=== PATIENT | male | born 1965 | race Caucasian/White ===

== ENCOUNTER 2018-10-04 18:09 | Emergency (ER) | payer OTHER ==
[~2018-10-04] VITALS: Ht 180.3 cm; Wt 87.1 kg
--- NOTE | 2018-10-04 18:15 | NUR ---
aaox3, BIBA RA 88 From [facility] "Alcohol Abuse, nausea, back pain. Last drink 12H" +Tremors. Resp even and unlabored. Placed on the monitor. Awaiting md for eval.
--- NOTE | 2018-10-04 18:18 | NUR ---
LILIBETH MINOR AT BEDSIDE
[2018-10-04] MEDS ORDERED: IV NS 0.9% 1,000 ML BAG IV ONE ×2 (18:30→21:00)
[2018-10-04] MEDS ORDERED: ONDANSETRON HCL/PF 4 MG/2 ML VIAL IVP ONE (18:30)
[2018-10-04] MEDS ORDERED: LORAZEPAM INJ 2 MG/ML VIAL IV ONE (18:30)
[2018-10-04] MEDS ORDERED: ONDANSETRON HCL/PF 4 MG/2 ML VIAL ONE ×2 (18:43→20:05)
[2018-10-04] MEDS ORDERED: LORAZEPAM INJ 2 MG/ML VIAL ONE (18:43)
[2018-10-04 18:56] LABS: BASOPHILS # (AUTO) 0.1 /CMM (0.0-0.2); BASOPHILS % (AUTO) 1.3 % (0.0-2.0); EOSINOPHILS % (AUTO) 0.1 % (0.0-6.0); HEMATOCRIT 43 % (39-51); LYMPHOCYTES # (AUTO) 0.6 /CMM (0.8-4.8); LYMPHOCYTES % (AUTO) 15.7 % (20.0-44.0); MEAN CORPUSCULAR HGB CONC 35 g/dl (31.0-36.0); MEAN CORPUSCULAR VOLUME 98 fL (80-96); MONOCYTES # (AUTO) 0.2 /CMM (0.1-1.30); MONOCYTES % (AUTO) 4.7 % (2.0-12.0); NEUTROPHILS # (AUTO) 3.2 /CMM (1.8-8.9); NEUTROPHILS % (AUTO) 78.2 % (43.0-81.0); PLATELET COUNT (AUTO) 105 /CMM (150-450); RED BLOOD CELL COUNT(AUTO) 4.44 MIL/uL (4.5-6.0); WHITE BLOOD COUNT (AUTO) 4.1 K/uL (4.3-11.0)
[2018-10-04 19:13] LABS: ALBUMIN 4.6 g/dL (3.4-5.0); BILIRUBIN,DIRECT 0.2 mg/dL (0.0-0.2); CREATININE 0.8 mg/dL (0.6-1.3)
--- NOTE | 2018-10-04 19:22 | NUR ---
RECEIVED REPORT FROM VINCE POND FOR KIMBERLI
--- NOTE | 2018-10-04 19:22 | NUR ---
REPORT GIVEN TO TRAVIS POND FOR KIMBERLI
[2018-10-04 19:23] LABS: CALCIUM, SERUM 8.8 mg/dL (8.5-10.1); POTASSIUM 3.5 mmol/L (3.5-5.1)
[2018-10-04] MEDS ORDERED: CHLORDIAZEPOXIDE HCL 25 MG CAPSULE PO ONE (19:30)
[2018-10-04] MEDS ORDERED: CHLORDIAZEPOXIDE HCL 25 MG CAPSULE ONE (19:36)
[2018-10-04] MEDS ORDERED: ONDANSETRON HCL/PF 4 MG/2 ML VIAL IV ONE (20:00)
[2018-10-04] MEDS ORDERED: HYDROMORPHONE 1 MG/1 ML DISP.SYRIN IV ONE (20:00)
[2018-10-04] MEDS ORDERED: HYDROMORPHONE 1 MG/1 ML DISP.SYRIN ONE (20:06)
--- NOTE | 2018-10-04 20:55 | NUR ---
ATTEMPTED TO AMBULATE PT. PT BECAME DIAPHORETIC AND UNABLE TO STAND. ASSISTED PT BACK INTO BED AND BACK ON THE MONITOR. ER PA AWARE.
[2018-10-04] MEDS ORDERED: LEVETIRACETAM (500MG) 500 MG/5 ML VIAL IV ONE (21:11)
[2018-10-04] MEDS ORDERED: Magnesium 1 GM/2 ML VIAL ONE (21:11)
[2018-10-04] MEDS ORDERED: LEVETIRACETAM (500MG) 1,500 MG in IV NS 0.9% 100 ML IV SCH (21:30)
[2018-10-04] MEDS ORDERED: Magnesium 1 GM/2 ML VIAL IV ONE (21:30)
--- NOTE | 2018-10-04 21:32 | NUR ---
PT RETURNED FROM CT
--- NOTE | 2018-10-04 22:19 | NUR ---
CALLED [facility] TO FOLLOW UP AND WAS INFORMED THAT THEY ARE WAITING ON CT RESULTS. RESULTS HAVE NOT COME IN YET, BUT WILL FAX RESULTS WHEN THEY COME IN. HEAD CT AND EKG TO FAX # [phone]
--- NOTE | 2018-10-04 22:23 | NUR ---
CALLED [facility] TO READ HEAD CT
--- NOTE | 2018-10-04 23:27 | NUR ---
ACCEPTED TO [facility]. MD TATUM. RN REPORT [phone]. TRANSPORT:0100.
--- NOTE | 2018-10-04 23:31 | NUR ---
REPROT GIVEN TO LUCY POND AT [facility] ([facility]
--- NOTE | 2018-10-05 00:19 | NUR ---
PT RESTING COMFORTABLY IN BED. VITAL SIGNS STABLE. NO ACUTE DISTRESS NOTED AT THIS TIME. STILL ON MONITOR, WILL CONTINUE TO MONITOR
--- NOTE | 2018-10-05 01:06 | NUR ---
GAVE REPORT TO [facility] FOR TRANSPORTATION KIMBERLI
[2018-10-05 01:10] VITALS: BP 160/91
== END 2018-10-05 01:13 | disposition short-term general hospital (02) ==
LOC: ER 18:12
DX: F10.239 Alcohol dependence with withdrawal, unspecified (principal); R53.1 Weakness; R11.2 Nausea with vomiting, unspecified; G89.29 Other chronic pain; M54.9 Dorsalgia, unspecified; R74.0 Nonspecific elevation of levels of transaminase and lactic acid dehydrogenase [LDH]; R40.4 Transient alteration of awareness; Y90.9 Presence of alcohol in blood, level not specified; Z60.2 Problems related to living alone
CPT/HCPCS: 36415; 70450; 80048; 80076; 83690; 85025; 93005; 96361; 96365; 96367; 96375; 96376; 99285; J1170; J1953; J2060; J2405 ×2; J3475; J7030 ×3; J7060

== ENCOUNTER 2020-09-04 17:29 | Inpatient (IN) | payer MEDICAID, OTHER ==
[~2020-09-04] VITALS: Ht 180.3 cm; Wt 93.4 kg
[2020-09-04] MEDS ORDERED: LORAZEPAM INJ 2 MG/ML VIAL IVP ONE (18:00)
[2020-09-04] MEDS ORDERED: IV NS 0.9% 1,000 ML BAG IV ONE (18:00)
[2020-09-04 18:17] LABS: BASOPHILS # (AUTO) 0.1 /CMM (0.0-0.2); BASOPHILS % (AUTO) 1.8 % (0.0-2.0); EOSINOPHILS % (AUTO) 0.1 % (0.0-6.0); HEMATOCRIT 41 % (39-51); HEMOGLOBIN 14.1 g/dL (13.5-17.5); LYMPHOCYTES # (AUTO) 0.7 /CMM (0.8-4.8); LYMPHOCYTES % (AUTO) 9.3 % (20.0-44.0); MEAN CORPUSCULAR HGB CONC 35 g/dl (31.0-36.0); MEAN CORPUSCULAR VOLUME 96 fL (80-96); MONOCYTES # (AUTO) 0.7 /CMM (0.1-1.30); MONOCYTES % (AUTO) 8.8 % (2.0-12.0); NEUTROPHILS # (AUTO) 6.2 /CMM (1.8-8.9); PLATELET COUNT (AUTO) 271 /CMM (150-450); RED BLOOD CELL COUNT(AUTO) 4.25 MIL/uL (4.5-6.0); WHITE BLOOD COUNT (AUTO) 7.8 K/uL (4.3-11.0)
[2020-09-04] MEDS ORDERED: LORAZEPAM INJ 2 MG/ML VIAL ONE (18:29)
[2020-09-04] MEDS ORDERED: ONDANSETRON HCL/PF 4 MG/2 ML VIAL ONE (18:37)
[2020-09-04 18:38] LABS: CARBON DIOXIDE 25 mmol/L (21-32); CHLORIDE 100 mmol/L (98-107); CREATININE 0.8 mg/dL (0.6-1.3); GLUCOSE 135 mg/dL (74-106); POTASSIUM 3.8 mmol/L (3.5-5.1); SODIUM SERUM 138 mmol/L (136-145); UREA NITROGEN, BLOOD 8 mg/dL (7-18)
[2020-09-04] MEDS ORDERED: MORPHINE SULFATE INJ 4 MG/ML DISP.SYRIN ONE (18:38)
[2020-09-04 18:44] LABS: ACETAMINOPHEN 0 ug/ml (10-30); ALANINE AMINOTRANSFERASE 45 U/L (12-78); ALBUMIN 4.3 g/dL (3.4-5.0); ALCOHOL, BLOOD 4 mg/dL (0-0); ALKALINE PHOSPHATASE 89 U/L (46-116); ASPARTATE AMINOTRANSFERASE 35 U/L (15-37); BILIRUBIN,DIRECT 0.2 mg/dL (0.0-0.2); TOTAL PROTEIN, SERUM 8.2 g/dL (6.4-8.2)
--- NOTE | 2020-09-04 18:53 | NUR ---
bibra, c/o left thigh pain s/p slipped and fall last night, etoh, 8/10 pain scale. On room air, breathing evenly and unlabored. Connected to the monitor and pulse ox. kept comfortable, will continue to monitor accordingly.
[2020-09-04] MEDS ORDERED: ONDANSETRON HCL/PF - ER 4 MG/2 ML VIAL IV ONE (19:00)
[2020-09-04] MEDS ORDERED: MORPHINE SULFATE INJ 2 MG/ML DISP.SYRIN IV ONE (19:00)
[2020-09-04] MEDS ORDERED: HYDROMORPHONE 1 MG/1 ML DISP.SYRIN ONE ×3 (19:16→23:46)
[2020-09-04] MEDS ORDERED: HYDROMORPHONE 1 MG/1 ML DISP.SYRIN IV ONE ×2 (19:30→21:30)
--- NOTE | 2020-09-04 20:00 | NUR ---
URINE COLLECTED, CALLED LAB FOR CONFERENCE SERVICES MANAGER
--- NOTE | 2020-09-04 20:06 | NUR ---
COVID SWAB COLLECTED, CALLED LAB FOR TERMINAL PRESS OPERATOR
[2020-09-04 20:30] LABS: BILIRUBIN,URINE Negative (NEGATIVE); COLOR,URINE YELLOW (YELLOW); LEUKOCYTE ESTERASE ,URINE Negative (NEGATIVE); NITRITE, URINE Negative (NEGATIVE); PROTEIN,URINE 30 mg/dl (NEGATIVE); UGLUCOSE Negative (NEGATIVE); UROBILINOGEN,URINE 0.2 EU/dL (0.2)
[2020-09-04 20:33] LABS: BACTERIA,URINE Rare /HPF (None Seen); RBC,URINE NONE SEEN /HPF (0-2); SQUAMOUS EPITHELIAL CELL,UR Few /HPF (None Seen); WBC,URINE NONE SEEN /HPF (0-3)
[2020-09-04] MEDS ORDERED: THIAMINE HCL 100 MG TABLET PO STA (21:01)
--- NOTE | 2020-09-04 21:10 | NUR ---
COVID NEGATIVE PER LAB
[2020-09-04] MEDS ORDERED: IV NS 0.9% 1,000 ML IV PRN (21:30)
[2020-09-04] MEDS ORDERED: HYDROCODONE/APAP 5/325MG TABLET PO PRN (21:30)
[2020-09-04] MEDS ORDERED: ZOLPIDEM TARTRATE 5 MG TABLET PO PRN (21:30)
[2020-09-04] MEDS ORDERED: Z GUARD REMEDY 2 OZ OINT TP PRN (21:30)
[2020-09-04] MEDS ORDERED: ACETAMINOPHEN 325 MG TABLET PO PRN (21:30)
[2020-09-04] MEDS ORDERED: ENOXAPARIN SODIUM 40 MG/0.4 ML DISP.SYRIN SQ ONE (21:30)
[2020-09-04] MEDS ORDERED: MAGNESIUM HYDROXIDE 30 ML UDC PO PRN (21:30)
[2020-09-04] MEDS ORDERED: LORAZEPAM INJ 2 MG/ML VIAL IV PRN (21:30)
[2020-09-04] MEDS ORDERED: ONDANSETRON HCL/PF 4 MG/2 ML VIAL IVP PRN (21:30)
--- NOTE | 2020-09-04 23:15 | NUR ---
REPORT GIVEN TO CUSTOMER TECHNICAL SERVICES MANAGER WILFREDO WILL TRANSPORT PT VIA ACLS PROTOCOL.
[2020-09-05] VITALS: BP 148/111
[2020-09-05] MEDS ORDERED: HYDROMORPHONE INJ 2 MG/ML DISP.SYRIN IV ONE
--- NOTE | 2020-09-05 | NUR ---
shellfish sorterpassport application examiner notes Received Pt from ER nurse SALTY Parra. Pt arrived at the unit with a gurney and ACLS protocol. Pt is alert and orientedX4. Respiration is normal in room air with O2 sat is 97%. IV site at L wrist # 18 is clean, intact and flushes well. Tele monitor showed SR hr at 80. Received admission orders from LILIBETH Jackson. Skin assessment is done and performed. Picture is taken and placed at Pt's chart. Pt has scab on R arm. Pt refused skin assessment on his back to due fracture pain. Pt stated "My back is fine and no wounds." Reorient Pt to the room and the use of call light. Pt verbalized understanding. Safety precautions is maintained. Bed at low position, brakes locked, side rails upX2, urinal at the bedside and call light is within reach. Will continue to monitor.
[2020-09-05] MEDS: FOLIC ACID 1 MG TABLET PO SCH ×2 (00:13→08:56)
--- NOTE | 2020-09-05 00:15 | NUR ---
RN notes Administered lovenox 40 mg/once as ordered. COURT SPECIALIST is aware and informed. Will continue to monitor.
[2020-09-05] MEDS ORDERED: THIAMINE HCL 100 MG TABLET ONE (00:21)
--- NOTE | 2020-09-05 00:29 | NUR ---
RN notes Pt is feeling anxious and requesting meds. Administered ativan 2 mg/1 ml/iv push/prn as ordered. INCLUSION MANAGER is aware and informed. Will continue to monitor.
[2020-09-05 00:30] VITALS: BP 148/111
[2020-09-05] MEDS ORDERED: LORAZEPAM INJ 2 MG/ML VIAL IV PRN (00:30)
[2020-09-05] MEDS ORDERED: ENOXAPARIN SODIUM 40 MG/0.4 ML DISP.SYRIN SQ ONE (00:30)
--- NOTE | 2020-09-05 03:46 | NUR ---
criminal intelligence specialist notes Pt is complaining of pain on L hip 04/01 and requesting meds. Informed and notified GRADUATE RECRUITER. GRADUATE RECRUITER ordered morphine 2 mg/iv push/q 4hr/prn. order carried out. Will continue to monitor.
[2020-09-05] MEDS: MORPHINE SULFATE INJ 2 MG/ML DISP.SYRIN IVP PRN ×2 (03:58→08:26)
[2020-09-05 04:00] VITALS: BP_SYST 148; BP_SYST 149; BP_DIAS 111; BP_DIAS 99
--- NOTE | 2020-09-05 04:07 | NUR ---
apiarist notes Pt is complaining of pain on L hip 04/01 and requesting pain. Administered morphine 2 mg/ivp/prn as ordered. VS is stable. Safety precautions is maintained. Will continue to monitor.
--- NOTE | 2020-09-05 06:41 | NUR ---
livestock judging coach closing notes Pt is resting in bed comfortably. Pt is alert and orientedX4. Respiration is normal in room air with O2 sat is 96 %. NO SOB. No S/S of distress noted. IV site at L wrist # 18 is clean, intact and infusing well NS @ 70 ml/hr. VS is stable. Afebrile. Tele monitor showed SR Hr at 75. Routine meds were given as ordered. Pt status is NPO. Safety precautions is maintained. Bed at low position, brakes locked, side rails upX2, urinal at the bedside and call light is within reach. Will endorse to morning nurse for KIMBERLI.
[2020-09-05 07:07] LABS: EOSINOPHILS % (AUTO) 1.5 % (0.0-6.0); HEMATOCRIT 37 % (39-51); HEMOGLOBIN 12.6 g/dL (13.5-17.5); LYMPHOCYTES # (AUTO) 0.7 /CMM (0.8-4.8); MEAN CORPUSCULAR HGB CONC 34 g/dl (31.0-36.0); MEAN CORPUSCULAR VOLUME 97 fL (80-96); MONOCYTES # (AUTO) 0.5 /CMM (0.1-1.30); MONOCYTES % (AUTO) 10.7 % (2.0-12.0); NEUTROPHILS # (AUTO) 3.2 /CMM (1.8-8.9); NEUTROPHILS % (AUTO) 70.8 % (43.0-81.0); PLATELET COUNT (AUTO) 222 /CMM (150-450); RED BLOOD CELL COUNT(AUTO) 3.79 MIL/uL (4.5-6.0); WHITE BLOOD COUNT (AUTO) 4.5 K/uL (4.3-11.0)
[2020-09-05 07:32] LABS: CALCIUM, SERUM 7.7 mg/dL (8.5-10.1); CREATININE 0.6 mg/dL (0.6-1.3); MAGNESIUM 1.7 mg/dL (1.8-2.4); PHOSPHORUS 2.8 mg/dL (2.5-4.9); POTASSIUM 3.4 mmol/L (3.5-5.1)
--- NOTE | 2020-09-05 08:27 | NUR ---
RN NOTES PATIENT REQUESTED FOR PAIN MEDICATION MORPHINE IV FOR PAIN RATED 9/10.
--- NOTE | 2020-09-05 08:31 | NUR ---
WOUND CARE CONSULT: PT REFUSED SKIN ASSESSMENT. PT NOTED TO HAVE DRY ABRASION TO RT ARM, PRESENT ON ADMISSION. RECOMMENDATIONS MADE FOR SKIN PROTECTION. DISCUSSED WITH NURSING STAFF. WILL SEE PRN. IN AGREEMENT WITH PLAN OF CARE. CURRENT DEXTER SCORE IS 16.
--- NOTE | 2020-09-05 09:00 | NUR ---
RN NOTES RECEIVED CALL FROM DR. DAUGHERTY; PER , WILL DO RESURFACING OF HIP PROSTHESIS LATER IN THE DAY. CHARGE NURSE MADE AWARE. Addendum: 09/05/20 at 9196 by ZAIRA POSEY RN PATIENT VERBALIZED THAT HE HAS NOT EATEN ANYTHING SINCE YESTERDAY IN THE AFTERNOON; REMINDED OF BEING NPO AT THIS TIME FOR POSSIBLE SURGERY TODAY.
[2020-09-05] MEDS: POTASSIUM CL. PREMIX PERIPHER. 50 ML IV SCH ×4 (09:13→19:17)
--- NOTE | 2020-09-05 10:11 | NUR ---
RN NOTES BEDSIDE ENDORSEMENT AND PATIENT REPORT GIVEN TO SALTY ANDREWS, FOR KIMBERLI.
[2020-09-05] MEDS: Magnesium 1GM/D5W 100ML PREMIX 100 ML IV SCH ×2 (10:32→16:55)
[2020-09-05] MEDS ORDERED: FENTANYL PF 250MCG/5ML AMPUL ONE (12:54)
[2020-09-05] MEDS ORDERED: SEVOFLURANE 250 ML BOTTLE IH ONE (12:54)
[2020-09-05] MEDS ORDERED: BUPIVACAINE 0.5 % PF 150 MG/30 ML VIAL ONE (12:57)
[2020-09-05] MEDS ORDERED: BACITRACIN 50000 UNITS/VIAL ONE (12:57)
--- NOTE | 2020-09-05 13:00 | NUR ---
COST ESTIMATING CLERK NOTES PATIENT TAKEN FOR SURGERY VIA BED
[2020-09-05] MEDS ORDERED: VANCOMYCIN 1 GM VIAL ONE (13:01)
[2020-09-05] MEDS ORDERED: LABETALOL HCL IV 100MG VIAL ONE (15:44)
[2020-09-05] MEDS ORDERED: HYDROCODONE/APAP 10/325MG TABLET PO PRN (16:30)
[2020-09-05] MEDS ORDERED: IV D5/0.45 NACL W/20 MEQ KCL 1L IV PRN (16:30)
[2020-09-05] MEDS ORDERED: Magnesium 1GM/D5W 100ML PREMIX 100 ML IV SCH (17:00)
[2020-09-05] MEDS ORDERED: POTASSIUM CL. PREMIX PERIPHER. 50 ML IV SCH ×2 (17:00→18:00)
[2020-09-05] MEDS: MORPHINE SULFATE INJ 4 MG/ML DISP.SYRIN IV PRN ×3 (17:49→22:24)
--- NOTE | 2020-09-05 17:58 | NUR ---
MS RN NOTES PATIENT BACK FROM PROCEDURE; MEDICALLY STABLE, VITAL SIGNS WITHIN NORMAL LIMITS.
--- NOTE | 2020-09-05 17:59 | NUR ---
MS RN NOTES PATIENT WITH L HIP PAIN 9 OUT OF 10. REQUESTING PAIN MEDICATION. PRN MORPHINE GIVEN PER MD ORDER.
--- NOTE | 2020-09-05 18:51 | NUR ---
CHIEF CRUISER CLOSING NOTES PATIENT REMAINS IN BED, AWAKE, A/O X4. PATIENT ON O2 AT THIS TIME POST-OP. PAIN TREATED WITH PRN PAIN MEDICATIONS. TELE MONITOR WITH A CURRENT READING OF SR 77. IV ACCESS ON L WRIST G # 18; PRESENT AND INTACT. DUNN CATH PRESENT AND IN PLACE. ABDUCTOR PILLOW FOR POSITIONING. SAFETY PRECAUTIONS IN PLACE; BED IN LOW POSITION AND LOCKED, RAILS UP X2, CALL LIGHT WITHIN REACH. WILL ENDORSE TO NIGHTSHIFT NURSE.
[2020-09-05 21:43] VITALS: BP 136/98
[2020-09-05] MEDS: ANCEF 1 GM/50 ML D5W IV SCH (21:47)
[2020-09-06] VITALS: BP 103/65
[2020-09-06] MEDS: MORPHINE SULFATE INJ 4 MG/ML DISP.SYRIN IV PRN ×10 (00:31→23:59)
--- NOTE | 2020-09-06 01:22 | NUR ---
MS/TELE/RN PATIENT IS SLEEPING AT THIS TIME, APPEAR COMFORTABLE, NO SIGNS OF DISTRESS NOTED, CALL LIGHT IN REACH, WILL CONTINUE TO MONITOR.
[2020-09-06 04:00] VITALS: BP 120/78
[2020-09-06] MEDS: ANCEF 1 GM/50 ML D5W IV SCH (05:05)
--- NOTE | 2020-09-06 06:14 | NUR ---
MS/TELE/RN PATIENT IS STILL SLEEPING AT THIS TIME, APPEAR COMFORTABLE, NO SIGNS OF DISTRESS NOTED, CALL LIGHT IN REACH, ALL NEEDS ATTENDED AT THIS TIME, WILL CONTINUE TO MONITOR.
[2020-09-06 07:19] LABS: BASOPHILS % (AUTO) 0.4 % (0.0-2.0); HEMATOCRIT 29 % (39-51); HEMOGLOBIN 9.8 g/dL (13.5-17.5); LYMPHOCYTES # (AUTO) 0.9 /CMM (0.8-4.8); LYMPHOCYTES % (AUTO) 18.4 % (20.0-44.0); MEAN CORPUSCULAR HGB CONC 34 g/dl (31.0-36.0); MEAN CORPUSCULAR VOLUME 99 fL (80-96); MONOCYTES # (AUTO) 0.5 /CMM (0.1-1.30); NEUTROPHILS # (AUTO) 3.4 /CMM (1.8-8.9); NEUTROPHILS % (AUTO) 69.2 % (43.0-81.0); PLATELET COUNT (AUTO) 183 /CMM (150-450); RED BLOOD CELL COUNT(AUTO) 2.93 MIL/uL (4.5-6.0); WHITE BLOOD COUNT (AUTO) 4.9 K/uL (4.3-11.0)
[2020-09-06 07:36] LABS: BILIRUBIN,TOTAL 0.9 mg/dL (0.2-1.0); CALCIUM, SERUM 7.7 mg/dL (8.5-10.1); CREATININE 0.6 mg/dL (0.6-1.3); PHOSPHORUS 2.5 mg/dL (2.5-4.9); POTASSIUM 3.4 mmol/L (3.5-5.1); TOTAL PROTEIN, SERUM 6.1 g/dL (6.4-8.2)
--- NOTE | 2020-09-06 07:57 | NUR ---
PRESS AND BLOW MACHINE TENDER OPENING NOTES RECEIVED PATIENT LYING IN BED, AWAKE, A/O X4. DAY 2 POST-OP. TELE MONITOR WITH A CURRENT READING OF SR 76. IV ACCESS ON L WRIST G # 18; PRESENT AND INTACT - RUNNING NS +20KCL @ 75ML/HR. DUNN CATH PRESENT AND IN PLACE. ABDUCTOR PILLOW FOR POSITIONING. SAFETY PRECAUTIONS IN PLACE; BED IN LOW POSITION AND LOCKED, RAILS UP X2, CALL LIGHT WITHIN REACH. WILL CONTINUE TO MONITOR.
[2020-09-06] MEDS: FOLIC ACID 1 MG TABLET PO SCH (08:08)
[2020-09-06] MEDS: POTASSIUM CHLORIDE 20 MEQ TAB.PRT.SR PO SCH ×2 (09:01→09:02)
--- NOTE | 2020-09-06 09:30 | NUR ---
MS/RN S/B Dr Lucero Seen by Dr Lucero - tele discontinued, electrolytes to be replaced as required.
[2020-09-06] MEDS ORDERED: POTASSIUM CHLORIDE 20 MEQ TAB.PRT.SR PO SCH (10:30)
--- NOTE | 2020-09-06 13:30 | NUR ---
MS/RN Physical therapy Seen by PT - able to get out of bed and take three steps forward and three steps back using walker. Recommendation of discharging to acute rehab unit upon discharge.
[2020-09-06] MEDS: SOD FERRIC GLUC 125 MG in IV NS 0.9% 100 ML IV SCH (16:07)
--- NOTE | 2020-09-06 17:36 | NUR ---
MS RN NOTE: PATIENT'S IV SITE IS RED AND A LITTLE SWOLLEN. PATIENT IS REFUSING A NEW LINE TO BE PUT IN AT THIS TIME. WILL CONTINUE TO MONITOR.
--- NOTE | 2020-09-06 18:38 | NUR ---
MS RN CLOSING NOTES PATIENT CURRENTLY RESTING IN BED, AWAKE, A/O X4. NO SIGNS OF DISTRESS. PAIN NOTED 01/30 - TREATED WITH PRN MORPHINE. LAST DOSE GIVEN @ 171 - MORPHINE 4MG IV. IV ACCESS ON L WRIST G # 18; SITE IS RED AND SWOLLEN. PATIENT REFUSED TO HAVE ANOTHER LINE PUT IN. DUNN CATH PRESENT AND IN PLACE - TO BE REMOVED 09/07 @ 0600. ABDUCTOR PILLOW FOR POSITIONING. SAFETY PRECAUTIONS IN PLACE; BED IN LOW POSITION AND LOCKED, RAILS UP X2, CALL LIGHT WITHIN REACH. WILL ENDORSE TO RETURNING OFFICER NURSE.
--- NOTE | 2020-09-06 19:50 | NUR ---
MS/RN OPENING NOTE RECEIVED PATIENT RESTING IN BED. AWAKE, ALERT AND ORIENTED X 4. ABLE TO MAKE NEEDS KNOWN. NO COMPLAINTS OF PAIN AT THIS TIME. IV ACCESS TO LEFT WRIST INTACT AND PATENT. IV SITE WITH SLIGHT REDNESS AND EDEMA. PATIENT REFUSING TO HAVE IV SITE CHANGED. DUNN CATHETER INTACT - TO BE REMOVED @ 0600 09/07. CONTINUES ON REGULAR DIET. CALL LIGHT WITHIN REACH. ASPIRATION, FALL AND SAFETY PRECAUTIONS MAINTAINED. WILL CONTINUE TO MONITOR.
[2020-09-06 20:00] VITALS: BP 113/83
--- NOTE | 2020-09-06 20:00 | NUR ---
MS/RN NOTES PATIENT WITH COMPLAINTS OF PAIN TO LEFT HIP. GIVEN PRN MORPHINE WITH PENDING EFFECT.
[2020-09-07] MEDS: MORPHINE SULFATE INJ 4 MG/ML DISP.SYRIN IV PRN ×5 (03:26→20:10)
[2020-09-07 07:01] LABS: BASOPHILS # (AUTO) 0.1 /CMM (0.0-0.2); BASOPHILS % (AUTO) 1.4 % (0.0-2.0); EOSINOPHILS % (AUTO) 5.3 % (0.0-6.0); HEMATOCRIT 26 % (39-51); LYMPHOCYTES # (AUTO) 1.2 /CMM (0.8-4.8); LYMPHOCYTES % (AUTO) 22.4 % (20.0-44.0); MEAN CORPUSCULAR HGB CONC 35 g/dl (31.0-36.0); MEAN CORPUSCULAR VOLUME 99 fL (80-96); MONOCYTES # (AUTO) 0.7 /CMM (0.1-1.30); NEUTROPHILS % (AUTO) 57.9 % (43.0-81.0); PLATELET COUNT (AUTO) 207 /CMM (150-450); RED BLOOD CELL COUNT(AUTO) 2.63 MIL/uL (4.5-6.0); WHITE BLOOD COUNT (AUTO) 5.2 K/uL (4.3-11.0)
--- NOTE | 2020-09-07 07:15 | NUR ---
MS/RN CLOSING NOTE PATIENT CURRENTLY RESTING IN BED. AWAKE, ALERT AND ORIENTED X 4. ABLE TO MAKE NEEDS KNOWN. NO COMPLAINTS OF PAIN AT THIS TIME. DUNN CATHETER REMOVED AT 0600. PATIENT HAS NOT VOIDED YET. IV ACCESS TO LEFT WRIST INTACT AND PATENT. CONTINUES WITH SLIGHT REDNESS AND EDEMA TO IV SITE. LEFT HIP DRESSING CLEAN, DRY AND INTACT. CALL LIGHT WITHIN REACH. ASPIRATION, FALL AND SAFETY PRECAUTIONS MAINTAINED. WILL ENDORSE PLAN OF CARE TO ONCOMING SHIFT.
[2020-09-07 08:00] VITALS: BP 119/70
--- NOTE | 2020-09-07 08:14 | NUR ---
MS RN OPENING NOTE RECEIVED PATIENT RESTING IN BED. AWAKE, A/O X 4. ABLE TO MAKE NEEDS KNOWN. NO COMPLAINTS OF PAIN AT THIS TIME. IV ACCESS TO LEFT WRIST INTACT AND PATENT. IV SITE WITH SLIGHT REDNESS AND EDEMA. PATIENT REFUSING TO HAVE IV SITE CHANGED. CONTINUES ON REGULAR DIET. CALL LIGHT WITHIN REACH. ASPIRATION, FALL AND SAFETY PRECAUTIONS MAINTAINED. WILL CONTINUE TO MONITOR.
[2020-09-07] MEDS: CALCIUM CARB 600MG /VIT D 1 EACH TABLET PO SCH (08:57)
[2020-09-07] MEDS: FOLIC ACID 1 MG TABLET PO SCH (08:57)
[2020-09-07 09:16] LABS: CALCIUM, SERUM 8.3 mg/dL (8.5-10.1); CREATININE 0.7 mg/dL (0.6-1.3)
--- NOTE | 2020-09-07 09:29 | NUR ---
MS RN NOTE PATIENT COMPLAINING OF PAIN 01/30. PRN MORPHINE 4MG IV GIVEN. WILL CONTINUE TO MONITOR.
--- NOTE | 2020-09-07 12:50 | NUR ---
MS RN NOTE PATIENT COMPLAINING OF PAIN 01/30. PRN MORPHINE 4MG IV GIVEN. WILL CONTINUE TO MONITOR.
[2020-09-07] MEDS: SOD FERRIC GLUC 125 MG in IV NS 0.9% 100 ML IV SCH (14:29)
[2020-09-07] MEDS ORDERED: oxyCODONE/APAP (5/325 MG) 1 UDTAB TABLET PO PRN (14:30)
[2020-09-07 16:00] VITALS: BP 128/68
[2020-09-07] MEDS: DOCUSATE SODIUM 100 MG CAPSULE PO SCH (16:11)
--- NOTE | 2020-09-07 18:51 | NUR ---
MS RN CLOSING NOTES PATIENT CURRENTLY RESTING IN BED. AWAKE, A/O X 4. NO COMPLAINTS OF PAIN AT THIS TIME. LAST PAIN MED GIVEN @ 1618 - PRN PERCOCET 5/325MG TABLET. PATIENT HAS NOT VOIDED YET. NEW IV PLACED - LEFT HAND #22, INTACT AND PATENT. LEFT HIP DRESSING CLEAN, DRY AND INTACT. CALL LIGHT WITHIN REACH. ASPIRATION, FALL AND SAFETY PRECAUTIONS MAINTAINED. WILL ENDORSE TO SEED CLEANER OPERATOR NURSE.
[2020-09-07 20:00] VITALS: BP 109/68
--- NOTE | 2020-09-07 20:10 | NUR ---
MS RN NOTES - PAIN PATIENT C/O 03/02 LEFT HIP PAIN. ADMINISTERED MORPHINE ORDERED. WILL CONTINUE TO ASSESS FOR PAIN.
--- NOTE | 2020-09-07 20:10 | NUR ---
MS RN OPENING NOTES PATIENT A/OX4 ABLE TO MAKE NEEDS KNOWN. ON ROOM AIR TOLERATING WELL WITH NO SOB. IV ON L HAND #22G PATENT AND INTACT. COMPLAINS OF 9/10 LEFT HIP PAIN; ADMINISTERED MORPHINE ORDERED. DRESSING ON LEFT HIP C/D/I. ALL SAFETY MEASURES IN PLACE: BED IN LOWEST LOCKED POSITION, SIDE RAILS UPX2, CALL LIGHT WITHIN EASY REACH, BED ALARMS ON. PATIENT MEDICALLY STABLE AT THIS TIME.
[2020-09-07] MEDS: POLYETHYLENE GLYCOL 3350 17 GM POWD.PACK PO SCH (22:02)
--- NOTE | 2020-09-08 06:32 | NUR ---
MS RN CLOSING NOTES PATIENT A/OX4 ABLE TO MAKE NEEDS KNOWN. ON ROOM AIR TOLERATING WELL WITH NO SOB. IV ON L HAND #22G S/L PATENT AND INTACT. DRESSING ON LEFT HIP C/D/I. ALL SAFETY MEASURES IN PLACE: BED IN LOWEST LOCKED POSITION, SIDE RAILS UPX2, CALL LIGHT WITHIN EASY REACH, BED ALARMS ON. PATIENT MEDICALLY STABLE AT THIS TIME. WILL ENDORSE KIMBERLI TO ONCOMING MORNING RN.
[2020-09-08] MEDS: MORPHINE SULFATE INJ 4 MG/ML DISP.SYRIN IV PRN ×2 (07:18→12:38)
--- NOTE | 2020-09-08 07:30 | NUR ---
MS RN NOTES PATIENT IN BED ALERT ORIENTED X 4. NO ACUTE DISTRESS NOTED. BREATHING UNLABORED. IV ACCESS PATENT AND INTACT, NO REDNESS, NO SWELLING NOTED. LEFT HIP SURGICAL DRESSING CLEAN DRY AND INTACT. SAFETY MEASURES IN PLACE. CALL LIGHT WITHIN REACH. WILL CONTINUE TO MONITOR ACCORDINGLY
[2020-09-08 08:00] VITALS: BP 121/65
[2020-09-08] MEDS: CALCIUM CARB 600MG /VIT D 1 EACH TABLET PO SCH (08:19)
[2020-09-08] MEDS: DOCUSATE SODIUM 100 MG CAPSULE PO SCH ×2 (08:19→16:48)
[2020-09-08] MEDS: FOLIC ACID 1 MG TABLET PO SCH (08:19)
[2020-09-08] MEDS ORDERED: NALOXONE HCL 0.4 MG/ML AMPUL IV PRN (14:00)
[2020-09-08] MEDS ORDERED: MORPHINE SULFATE INJ 4 MG/ML DISP.SYRIN IV PRN (14:00)
[2020-09-08] MEDS: SOD FERRIC GLUC 125 MG in IV NS 0.9% 100 ML IV SCH (14:54)
[2020-09-08] MEDS ORDERED: SENNOSIDES 8.6 MG TABLET PO PRN (16:30)
--- NOTE | 2020-09-08 19:00 | NUR ---
MS RN CLOSING NOTES PATIENT IN BED ALERT ORIENTED X 4. NO ACUTE DISTRESS NOTED. BREATHING UNLABORED. IV ACCESS PATENT AND INTACT, NO REDNESS, NO SWELLING NOTED. LEFT HIP SURGICAL DRESSING CLEAN DRY AND INTACT. SAFETY MEASURES IN PLACE. CALL LIGHT WITHIN REACH. WILL ENDORSE TO NIGHT NURSE FOR CONTINUITY OF CARE.
--- NOTE | 2020-09-08 19:20 | NUR ---
RN opening notes Received Pt from morning nurse. Pt is laying in bed comfortably watching TV. Pt is alert and orientedX4. Respiration is normal in room air. No SOB. No S/S of distress noted. IV site at L hand# 22 is clean, intact, flushes well and SL. L hip surgical dressing is clean, intact and dry. Safety precautions is maintained. Bed at low position, brakes locked, side rails upX2, urinal at the bed side, walker at the bedside and call light is within reach. Will continue to monitor.
[2020-09-08 20:00] VITALS: BP 123/54
[2020-09-08] MEDS: oxyCODONE HCL SR 10MG TAB.SR.12H PO SCH (21:15)
[2020-09-08] MEDS: POLYETHYLENE GLYCOL 3350 17 GM POWD.PACK PO SCH (21:15)
--- NOTE | 2020-09-09 06:40 | NUR ---
RN closing notes Pt is resting in bed comfortably. Pt is alert and orientedX4. Respiration is normal in room air with O2 sat is 97 %. NO SOB. No S/S of distress noted. VS is stable. Afebrile. Routine meds were given as ordered. IV site at L hand # 22 is clean, intact and SL. L hip dressing is intact, clean and dry. Kept Pt clean, dry and comfortable. Safety precautions is maintained. Bed at low position, brakes locked, side rails upX2, urinal at the bedside and call light is within reach. Will endorse to morning nurse for KIMBERLI.
[2020-09-09 08:00] VITALS: BP 134/84
[2020-09-09] MEDS: CALCIUM CARB 600MG /VIT D 1 EACH TABLET PO SCH (09:29)
[2020-09-09] MEDS: DOCUSATE SODIUM 100 MG CAPSULE PO SCH ×2 (09:29→17:00)
[2020-09-09] MEDS: FOLIC ACID 1 MG TABLET PO SCH (09:29)
[2020-09-09] MEDS: oxyCODONE HCL SR 10MG TAB.SR.12H PO SCH (09:30)
[2020-09-09] MEDS: SOD FERRIC GLUC 125 MG in IV NS 0.9% 100 ML IV SCH (14:05)
[2020-09-09] MEDS ORDERED: OXYC1TAB8 PO (14:27)
[2020-09-09] MEDS ORDERED: Calcium Carb 600MG /Vit D PO (14:27)
[2020-09-09] MEDS ORDERED: SENN-261 PO (14:27)
[2020-09-09] MEDS ORDERED: Folic Acid PO (14:27)
[2020-09-09] MEDS ORDERED: DOCU-270 PO (14:27)
[2020-09-09] MEDS ORDERED: oxyCODONE HCL SR 10MG PO (14:27)
--- NOTE | 2020-09-09 15:24 | NUR ---
Pt refused to have a new IV inserted, IV on the left hand #22g found leaking and discontinued. Will inform .
[2020-09-09 16:00] VITALS: BP 117/88
[2020-09-09] MEDS ORDERED: INFLUENZA VACCINE 2020-21 0.5 ML DISP.SYRIN IM ONE (17:00)
--- NOTE | 2020-09-09 18:10 | NUR ---
Pt left in stable condition, VSS, no IV to remove. Pt given discharge instructions, verbalized understanding Pt's dressings changed with new abdominal pads and applied tape and reinforced. Pt's skin assessed, no skin breakdown, right arm picture taken and put in chart. Pt given flu vaccine on right arm prior to discharge. Pt escorted to main lobby via wheelchair and picked up by friend in private car.
== END 2020-09-09 18:00 | disposition home health service (06) | DRG 301 ==
LOC: ER 17:35 → MED 22:15 → TELE 09-05 00:22 → MED 09-06 12:07
PROVIDERS: ADMIT Nurse Practitioner Acute Care; ATTEND Nurse Practitioner Acute Care
PROC: 0SRB0JA Replacement of Left Hip Joint with Synthetic Substitute, Uncemented, Open Approach (ICD-10-PCS; principal; 2020-09-05)
PROC: 0SPB0JZ Removal of Synthetic Substitute from Left Hip Joint, Open Approach (ICD-10-PCS; 2020-09-05)
PROC: 0QS704Z Reposition Left Upper Femur with Internal Fixation Device, Open Approach (ICD-10-PCS; 2020-09-05)
DX: M97.02XA Periprosthetic fracture around internal prosthetic left hip joint, initial encounter (principal); S72.142A Displaced intertrochanteric fracture of left femur, initial encounter for closed fracture; W01.0XXA Fall on same level from slipping, tripping and stumbling without subsequent striking against object, initial encounter; Y92.009 Unspecified place in unspecified non-institutional (private) residence as the place of occurrence of the external cause; M16.11 Unilateral primary osteoarthritis, right hip; I48.92 Unspecified atrial flutter; G92 Toxic encephalopathy; F10.239 Alcohol dependence with withdrawal, unspecified; I48.91 Unspecified atrial fibrillation; Y90.0 Blood alcohol level of less than 20 mg/100 ml; E83.42 Hypomagnesemia; E87.6 Hypokalemia; D68.69 Other thrombophilia; Z20.822 Contact with and (suspected) exposure to COVID-19
CPT/HCPCS: 36415; 71045-TC; 72170-TC; 72192-TC; 73502; 80048-TC; 80053-TC; 80061-TC; 80076-TC; 81001; 82550-TC; 83735-TC; 84100-TC; 84484-TC; 85025-TC; 85610-TC; 85730-TC; 86850-TC; 87081-TC; 88300-TC; 88304-TC; 88305-TC; 88311-TC; 93307-TC; 97110-TC; 97112-TC; 97116-TC; 97530-TC; A4217; A6209; A6253; C1776; C9803; G0378; G0480; J0690; J1100; J1170; J1650; J1885; J2060; J2270; J2405; J2704; J2916; J3010; J3370; J3475; J3480; J3490; J7030; J7050; J7060; Q2036

== ENCOUNTER 2020-12-04 14:44 | Inpatient (IN) | payer BC, OTHER ==
[~2020-12-04] VITALS: Ht 180.3 cm; Wt 78.5 kg
[~2020-12-04 14:44] MED LIST: Calcium Carb 600MG /Vit D PO; DOCU-270 PO; Folic Acid PO; OXYC1TAB8 PO; SENN-261 PO; oxyCODONE HCL SR 10MG PO
[2020-12-04] MEDS ORDERED: IV NS 0.9% 1,000 ML BAG IV ONE ×2 (15:00→16:30)
--- NOTE | 2020-12-04 15:00 | NUR ---
[id number], FOUND IN FLOOR FACING DOWN S/P [employer] COMPANY FOUND HIM S/P REPORTED GAS FUMES COMPLAIN. BG 124 SALES AND SERVICE OFFICER. HYPOTENSIVE AT SCENE. ON ROOM AIR, BREATHING EVENLY AND UNLABORED. CONNECTED TO THE MONITOR AND PULSE OX. KEPT COMFORTABLE, WILL CONTINUE TO MONITOR ACCORDINGLY.
[2020-12-04 15:34] LABS: BASOPHILS % (AUTO) 0.5 % (0.0-2.0); HEMATOCRIT 49 % (39-51); HEMOGLOBIN 16.1 g/dL (13.5-17.5); LYMPHOCYTES # (AUTO) 0.7 /CMM (0.8-4.8); LYMPHOCYTES % (AUTO) 9.3 % (20.0-44.0); MEAN CORPUSCULAR HGB CONC 33 g/dl (31.0-36.0); MEAN CORPUSCULAR VOLUME 99 fL (80-96); MONOCYTES # (AUTO) 1.9 /CMM (0.1-1.30); MONOCYTES % (AUTO) 24.8 % (2.0-12.0); NEUTROPHILS % (AUTO) 65.4 % (43.0-81.0); PLATELET COUNT (AUTO) 243 /CMM (150-450); RED BLOOD CELL COUNT(AUTO) 4.92 MIL/uL (4.5-6.0); WHITE BLOOD COUNT (AUTO) 7.6 K/uL (4.3-11.0)
--- NOTE | 2020-12-04 15:42 | NUR ---
wheeled patient to ct accompanied by abebe
[2020-12-04 15:45] LABS: BILIRUBIN,URINE LARGE (NEGATIVE); COLOR,URINE YELLOW (YELLOW); LEUKOCYTE ESTERASE ,URINE Small (NEGATIVE); NITRITE, URINE Negative (NEGATIVE); PROTEIN,URINE 30 mg/dl (NEGATIVE); UGLUCOSE Negative (NEGATIVE)
[2020-12-04 15:53] LABS: ALANINE AMINOTRANSFERASE 156 U/L (12-78); ALBUMIN 3.1 g/dL (3.4-5.0); ALKALINE PHOSPHATASE 84 U/L (46-116); ASPARTATE AMINOTRANSFERASE 98 U/L (15-37); BILIRUBIN,DIRECT 0.6 mg/dL (0.0-0.2); BILIRUBIN,TOTAL 1.3 mg/dL (0.2-1.0); CALCIUM, SERUM 8.4 mg/dL (8.5-10.1); CARBON DIOXIDE 20 mmol/L (21-32); CHLORIDE 116 mmol/L (98-107); GLUCOSE 141 mg/dL (74-106); POTASSIUM 3.7 mmol/L (3.5-5.1); TOTAL PROTEIN, SERUM 6.7 g/dL (6.4-8.2)
[2020-12-04 15:54] LABS: SODIUM SERUM 159 mmol/L (136-145); UREA NITROGEN, BLOOD 121 mg/dL (7-18)
[2020-12-04 15:56] LABS: BACTERIA,URINE Many /HPF (None Seen); HYALINE CASTS, URINE Few /LPF (None Seen); SQUAMOUS EPITHELIAL CELL,UR Few /HPF (None Seen)
--- NOTE | 2020-12-04 16:13 | NUR ---
SAL CALLED. AWAITING HOSPITALIST CALL BACK.
[2020-12-04] MEDS ORDERED: CEFTRIAXONE 1GM BAG (ER ONLY) 50 ML IV ONE ×2 (16:30→16:31)
[2020-12-04] MEDS ORDERED: LORAZEPAM INJ 2 MG/ML VIAL IV PRN (17:00)
--- NOTE | 2020-12-04 17:10 | NUR ---
LAB CALLED PT COVID RESULT NEGATIVE (-)
[2020-12-04 17:20] LABS: NEUTROPHILS % (MANUAL) 75 (42-76)
[2020-12-04 17:21] LABS: BAND % (MANUAL) 3 % (0.0-5.0); LYMPHOCYTES % (MANUAL) 7 % (16-48); MONOCYTES % (MANUAL) 15 % (0-11.0)
[2020-12-04] MEDS ORDERED: Z GUARD REMEDY 2 OZ OINT TP PRN (17:30)
[2020-12-04] MEDS ORDERED: ACETAMINOPHEN 325 MG TABLET PO PRN (17:30)
[2020-12-04] MEDS ORDERED: ONDANSETRON HCL/PF 4 MG/2 ML VIAL IVP PRN (17:30)
[2020-12-04] MEDS ORDERED: MAGNESIUM HYDROXIDE 30 ML UDC PO PRN (17:30)
--- NOTE | 2020-12-04 18:11 | NUR ---
[facility] BED 111-1
--- NOTE | 2020-12-04 18:27 | NUR ---
report given to Moris POND for rosario.
--- NOTE | 2020-12-04 18:55 | NUR ---
wheeled patient via gurney accompanied by RN and emt in no distress. RN assigned at bedside to assume care.
--- NOTE | 2020-12-04 19:00 | NUR ---
RN OPENING NOTE ADMIT 55 YEAR OLD MALE FROM ER TO [facility] UNIT TO ROOM 111 ON [facility] MONITORING ALERT ORIENTED X2 VERBALLY RESPONSIVE ON ROOM AIR O2;98% BP 93/44 HR 74 T:98.6 ON DUNN CATHETER FR 16 URINE DRAINING YELLOW AND CLEAR NPO MD ORDERED IV SITE IS ON LEFT HAND AND RIGHT EJ INTACT PATENT,BED ALARM IS ON SAFETY MEASURE IMPLEMENT BED IN LOW POSITON AND LOCKED CONTINUE TO MONITOR.
[2020-12-04] MEDS: PIPERACILLIN /TAZOBACTAM 3.375 G in IV D5W 50 ML IV SCH (19:52)
[2020-12-04 20:00] VITALS: BP 80/44
--- NOTE | 2020-12-04 21:00 | NUR ---
RN NOTE BP IS 80/44 HR IS 82 CALLED FLIGHT AGENT EPIC DR HACKETT WITH NEW ORDER 250 NS BOLUS AND 0.45% NS 80CC/HR NOTED AND CARRIED OUT.
[2020-12-04] MEDS ORDERED: IV 1/2NS 1000 ML 1,000 ML IV PRN (21:30)
[2020-12-04] MEDS ORDERED: IV NS 0.9% 250 ML IV ONE (21:30)
--- NOTE | 2020-12-04 22:20 | NUR ---
RN NOTE PATIENT REMOVED HIS IV LINE ON LEFT HAND CLEAN AND DRY CONTINUE TO MONITOR
--- NOTE | 2020-12-04 23:30 | NUR ---
RN NOTE STARTED A NEW IV LINE ON LEFT HAND G 20 WITH GOOD BLOOD RETURN INTACT PATENT CONTINUE TO MONITOR.
--- NOTE | 2020-12-04 23:39 | NUR ---
RN NOTE BP IS 96/56 HR 92 CONTINUE TO MONITOR.
[2020-12-05] VITALS: BP 104/52
[2020-12-05] MEDS: PIPERACILLIN /TAZOBACTAM 3.375 G in IV D5W 50 ML IV SCH ×2 (00:21→05:09)
[2020-12-05 04:00] VITALS: BP 134/56
[2020-12-05 06:29] LABS: BASOPHILS % (AUTO) 0.1 % (0.0-2.0); HEMATOCRIT 47 % (39-51); HEMOGLOBIN 15.6 g/dL (13.5-17.5); LYMPHOCYTES # (AUTO) 0.7 /CMM (0.8-4.8); LYMPHOCYTES % (AUTO) 11.2 % (20.0-44.0); MEAN CORPUSCULAR HGB CONC 33 g/dl (31.0-36.0); MEAN CORPUSCULAR VOLUME 100 fL (80-96); MONOCYTES # (AUTO) 1.5 /CMM (0.1-1.30); MONOCYTES % (AUTO) 21.9 % (2.0-12.0); NEUTROPHILS # (AUTO) 4.4 /CMM (1.8-8.9); NEUTROPHILS % (AUTO) 66.8 % (43.0-81.0); PLATELET COUNT (AUTO) 192 /CMM (150-450); RED BLOOD CELL COUNT(AUTO) 4.68 MIL/uL (4.5-6.0); WHITE BLOOD COUNT (AUTO) 6.7 K/uL (4.3-11.0)
[2020-12-05 06:56] LABS: BILIRUBIN,TOTAL 1.2 mg/dL (0.2-1.0); CALCIUM, SERUM 7.9 mg/dL (8.5-10.1); CREATININE 2.7 mg/dL (0.6-1.3); MAGNESIUM 2.7 mg/dL (1.8-2.4); PHOSPHORUS 4.7 mg/dL (2.5-4.9); POTASSIUM 4.2 mmol/L (3.5-5.1); TOTAL PROTEIN, SERUM 6.7 g/dL (6.4-8.2)
--- NOTE | 2020-12-05 07:08 | NUR ---
RN NOTE PATIENT REMIANIS ON ALERT ORIENTED X2 VERBALLY RESPONSIVE ON [facility] MONITORING ON ROOM AIR O2:98% NO SOB NOT ACUTE DISTRESS NOTED IV SITE IS ON LEFT HAND AND RIGHT EJ INTACT PATENT ON 0.45% NS 80 CC/HR ENDORSE NEXT COMING SHIFT FOR CONTINUATION OF CARE.
--- NOTE | 2020-12-05 07:10 | NUR ---
RN OPENING NOTES RECEIVED PT AWAKE, A/O X2. STABLE ON ROOM AIR. SR ON TELE MONITOR. DUNN CATH IN PLACE. NPO. IV ACCESS ON REJ #18 AND L HAND #20 BOTH INTACT, PATENT AND FLUSHED. SAFETY MEASURES IN PLACE. CALL LIGHT WITHIN REACH. BED LOCKED AND IN LOWEST POSITION WITH SIDE RAILS UP X3. BED ALARM ON. WILL CONTINUE TO MONITOR.
[2020-12-05 07:28] LABS: THYROID STIMULATING HORMONE 1.844 uIU/mL (0.358-3.74)
[2020-12-05 08:00] VITALS: BP 101/62
[2020-12-05] MEDS: THIAMINE HCL 100 MG TABLET PO SCH (08:53)
[2020-12-05] MEDS: FOLIC ACID 1 MG TABLET PO SCH (08:53)
[2020-12-05] MEDS: MULTIVITAMINS,THERAGRAN 1 UDTAB TABLET PO SCH (08:53)
[2020-12-05 10:02] LABS: BAND % (MANUAL) 2 % (0.0-5.0); NEUTROPHILS % (MANUAL) 74 (42-76)
[2020-12-05 10:03] LABS: LYMPHOCYTES % (MANUAL) 11 % (16-48); MONOCYTES % (MANUAL) 13 % (0-11.0)
[2020-12-05] MEDS: PIPERACILLIN /TAZOBACTAM 3.375 G in IV D5W 100 ML IV SCH ×2 (10:22→17:43)
[2020-12-05 12:00] VITALS: BP 102/64
[2020-12-05 16:00] VITALS: BP 117/66
--- NOTE | 2020-12-05 18:42 | NUR ---
RN CLOSING NOTES NO SIGNIFICANT CHANGES THROUGHOUT THE SHIFT. STABLE ON ROOM AIR. NO SOB OR ANY DISTRESS. DENIES ANY PAIN. ABLE TO TAKE SOME SIPS OF WATER BUT STILL NOT FULLY AWAKE. WILL KEEP ON NPO. SAFETY MEASURES STILL ON PLACE. WILL ENDORSE TO NIGHT RN FOR KIMBERLI.
[2020-12-05] MEDS ORDERED: IV 1/2NS 1000 ML 1,000 ML IV PRN (19:00)
--- NOTE | 2020-12-05 19:30 | NUR ---
RN NOTE PATIENT IN BED, REMAINS LETHARGIC. EASILY AROUSED. NO SOB OR ANY RESPIRATORY DISTRESS. ON ROOM AIR, O2 SAT 98%. NO SIGNS OF PAIN OR DISCOMFORT. IV ACCESS ON RIGHT EJ #18 AND LEFT HAND #20 RUNNING 1/2 NS @ 100ML/HR. NO SIGNS OF INFILTRATION. BED LOCKED AND IN LOWEST POSITION. CALL LIGHT WITHIN REACH. ALL NEEDS ANTICIPATED.
[2020-12-05 20:00] VITALS: BP 104/62
[2020-12-06] VITALS: BP 110/64
[2020-12-06] MEDS: PIPERACILLIN /TAZOBACTAM 3.375 G in IV D5W 100 ML IV SCH ×3 (01:10→17:12)
[2020-12-06 04:00] VITALS: BP 102/69
--- NOTE | 2020-12-06 06:52 | NUR ---
RN NOTE PATIENT ALERT AND ORIENTED X2-3. NO SOB OR ANY RESPIRATORY DISTRESS. ON ROOM AIR, O2 SAT 97%. IV ACCESS LEFT HAND #20 RUNNING 1/2 NS @ 200ML/HR. NO SIGNS OF INFILTRATION. TURNED AND REPOSITIONED. TOLERATED BED BATH WELL. BED LOCKED AND IN LOWEST POSITION. CALL LIGHT WITHIN REACH. WILL ENDORSE TO AM SHIFT.
--- NOTE | 2020-12-06 07:25 | NUR ---
FUEL MANAGER OPENING NOTES RECEIVED PT ASLEEP IN BED, EASILY AWAKENS. A/O X2-3. VERBALLY RESPONSIVE, DENIES PAIN OR ANY DISCOMFORTS AT THIS TIME. ON ROOM AIR, BREATHING EVEN AND UNLABORED, NO SOB NOTED. . ON TELE MONITOR WITH CURRENT READING OF NSR WITH HR ON THE 70'S, NO C/O CARDIAC DISTRESS VOICED AT THIS TIME. REMAINS NPO. IV ACCESS ON L HAND TG#20 INTACT AND PATENT, IVF OF 1/2 NS AT 200ML/HR INFUSING WELL, NO S/S OF INFILTRATION NOTED. DUNN CATH IN PLACE, DRAINING CLEAR YELLOW URINE TO BEDSIDE URINARY BAG. SAFETY MEASURES IN PLACE: CALL LIGHT WITHIN REACH. BED LOCKED AND IN LOWEST POSITION WITH SIDE RAILS UP X2. BED ALARM ON. WILL CONTINUE TO MONITOR.
[2020-12-06 08:00] VITALS: BP 116/71
[2020-12-06] MEDS: FOLIC ACID 1 MG TABLET PO SCH (08:10)
[2020-12-06 08:11] LABS: CALCIUM, SERUM 8.4 mg/dL (8.5-10.1); CREATININE 1.8 mg/dL (0.6-1.3); MAGNESIUM 3.3 mg/dL (1.8-2.4); PHOSPHORUS 2.4 mg/dL (2.5-4.9); POTASSIUM 3.3 mmol/L (3.5-5.1)
[2020-12-06] MEDS: THIAMINE HCL 100 MG TABLET PO SCH (08:11)
[2020-12-06] MEDS: MULTIVITAMINS,THERAGRAN 1 UDTAB TABLET PO SCH (08:11)
[2020-12-06] MEDS ORDERED: Potassium Chloride 40 MEQ in IV D5W 1,000 ML IV STA (08:36)
--- NOTE | 2020-12-06 08:45 | NUR ---
RN NOTES RECEIVED CALL FROM [facility] THAT PT HAS CRITICAL LABS NA 157 AND CHLORIDE 127. LILIBETH BENDER MED AWARE WITH ORDER TO CALL SHEET TURNER. DR CHINCHILLA OFFICE CALLED AND LEFT MESSAGE TO AUTOMATED LOGISTICS SPECIALIST, AWAITING FOR RESPONSE. WILL F/U. Addendum: 12/06/20 at 1433 by CHRISTIANA VALDIVIA RN CORRECTION: SODIUM WAS 167 NOT 157
--- NOTE | 2020-12-06 11:00 | NUR ---
RN NOTES LILIBETH BENDER CAME AND ASSESSED PT AND VERBALIZED THAT DR CHINCHILLA IS AWARE OF PT'S CRITICAL LEVELS OF NA 167 AND CHLORIDE 127 AND MADE ORDERS. WILL CONTINUE TO MONITOR.
[2020-12-06] MEDS ORDERED: K PHOS NEUTRAL 250 MG TABLET PO ONE (12:00)
[2020-12-06 16:00] VITALS: BP 95/55
--- NOTE | 2020-12-06 16:59 | NUR ---
RN NOTE PT. NOTED TO HAVE LEAKING DUNN CATH, MACHINERY MECHANIC YULIA AWARE AND GAVE ORDER TO DC DUNN CATH. URINAL PLACED AT PATIENTS BEDSIDE
--- NOTE | 2020-12-06 17:47 | NUR ---
RN NOTE PT SEEN BY DR CHINCHILLA THIS AFTERNOON. STATED TO ENCOURAGE ORAL INTAKE OF FLUIDS TO DECREASE SODIUM LEVEL.
--- NOTE | 2020-12-06 18:34 | NUR ---
MS RN CLOSING NOTES PT IN BED AWAKE AND WATCHING TV AT THIS TIME. A/O X2-3. ABLE TO MAKE NEEDS KNOWN.ON ROOM AIR, BREATHING EVEN AND UNLABORED, NO SOB NOTED DURING SHIFT. IV ACCESS ON L HAND G#20 INTACT AND PATENT, IV ABX OF ZOSYN @ 25ML/HR INFUSING WELL AT THIS TIME, NO S/S OF INFILTRATION NOTED. ALL NEEDS NAD CARE PROVIDED WELL. SAFETY MEASURES IN PLACE: CALL LIGHT WITHIN REACH. BED LOCKED AND IN LOWEST POSITION WITH SIDE RAILS UP X2. BED ALARM ON. WILL ENDORSE KIMBERLI TO NURSE CASE MANAGEMENT NURSE.
[2020-12-06 20:00] VITALS: BP 104/55
[2020-12-07] VITALS: BP 102/52
[2020-12-07] MEDS: PIPERACILLIN /TAZOBACTAM 3.375 G in IV D5W 100 ML IV SCH ×3 (02:06→16:56)
--- NOTE | 2020-12-07 03:52 | NUR ---
patient drinks a lot of water small urine out put has diaper on no c/o of pain these hours.
[2020-12-07 04:00] VITALS: BP 101/50
[2020-12-07 06:51] LABS: CALCIUM, SERUM 7.4 mg/dL (8.5-10.1)
[2020-12-07 06:52] LABS: MAGNESIUM 2.3 mg/dL (1.8-2.4); PHOSPHORUS 2.2 mg/dL (2.5-4.9)
[2020-12-07 07:04] LABS: BASOPHILS % (AUTO) 0.4 % (0.0-2.0); EOSINOPHILS % (AUTO) 1.2 % (0.0-6.0); HEMATOCRIT 36 % (39-51); LYMPHOCYTES # (AUTO) 1.5 /CMM (0.8-4.8); LYMPHOCYTES % (AUTO) 20.9 % (20.0-44.0); MEAN CORPUSCULAR HGB CONC 33 g/dl (31.0-36.0); MEAN CORPUSCULAR VOLUME 99 fL (80-96); MONOCYTES # (AUTO) 1.3 /CMM (0.1-1.30); MONOCYTES % (AUTO) 19.1 % (2.0-12.0); NEUTROPHILS # (AUTO) 4.1 /CMM (1.8-8.9); NEUTROPHILS % (AUTO) 58.4 % (43.0-81.0); PLATELET COUNT (AUTO) 188 /CMM (150-450); RED BLOOD CELL COUNT(AUTO) 3.63 MIL/uL (4.5-6.0)
[2020-12-07 08:00] VITALS: BP 117/67
--- NOTE | 2020-12-07 08:02 | NUR ---
RN OPENING NOTE RECEIVED PATIENT IN BED, AO X 2, ABLE TO RESPONDS ALL STIMULI. NO S/S OF DISTRESS OBSERVED. SKIN IS WARM TO TOUCH KEEP CLEAN/DRY, INTACT IV SITE. RESPIRATORY EVEN AND UNLABORED ON ROOM AIR, NO DISTRESS OBSERVED. KEPT ELEVATED HOB FOR ENSURE AIRWAY AND ASPIRATION PRECAUTION, ALSO LOWEST BED POSITION FOR SAFETY. CALL LIGHT WITHIN REACH, WILL CONTINUE TO MONITOR.
[2020-12-07] MEDS ORDERED: POTASSIUM CHLORIDE 10 MEQ TABLET.SA PO ONE (08:30)
[2020-12-07] MEDS ORDERED: K PHOS NEUTRAL 250 MG TABLET PO ONE (08:30)
[2020-12-07] MEDS: THIAMINE HCL 100 MG TABLET PO SCH (09:14)
[2020-12-07] MEDS: FOLIC ACID 1 MG TABLET PO SCH (09:15)
[2020-12-07] MEDS: MULTIVITAMINS,THERAGRAN 1 UDTAB TABLET PO SCH (09:15)
[2020-12-07 09:56] LABS: BAND % (MANUAL) 5 % (0.0-5.0); EOSINOPHILS % (MANUAL) 2 % (0-4); LYMPHOCYTES % (MANUAL) 20 % (16-48); MONOCYTES % (MANUAL) 18 % (0-11.0); NEUTROPHILS % (MANUAL) 55 (42-76)
[2020-12-07 16:10] LABS: CREATININE, URINE 99.3 MG/DL (30.0-125.0); URINE TOTAL PROTEIN 33.8 mg/dL (0-11.9)
[2020-12-07 16:41] LABS: BILIRUBIN,URINE NEGATIVE (NEGATIVE); COLOR,URINE YELLOW (YELLOW); LEUKOCYTE ESTERASE ,URINE NEGATIVE (NEGATIVE); NITRITE, URINE NEGATIVE (NEGATIVE); PROTEIN,URINE NEGATIVE (NEGATIVE); UGLUCOSE 100 MG/DL mg/dL (NEGATIVE)
[2020-12-07 16:55] LABS: SQUAMOUS EPITHELIAL CELL,UR 0-2 /HPF (None Seen); WBC,URINE 0-2 /HPF (0-3)
[2020-12-07 16:56] LABS: URIC ACID CRYSTALS,URINE Moderate /HPF (None Seen)
[2020-12-07 17:06] LABS: BACTERIA,URINE None seen /HPF (None Seen)
[2020-12-07 17:26] LABS: EOSINOPHIL,URINE None Seen
--- NOTE | 2020-12-07 18:48 | NUR ---
RN CLOSING NOTE PATIENT IN BED, NO S/S OF DISTRESS OBSERVED. SKIN IS WARM TO TOUCH,KEEP CLEAN/DRY. SEEN BY WOUND DELIMER AND DRESSING CHANGE PROVIDED. RESPIRATORY EN=ISMAEL AND UNLABORED ON ROOM AIR. KEPT ELEVATED HOB FOR ENSURE AIRWAY AND ASPIRATION PRECAUTION, ALSO LOWEST BED POSITION FOR SAFETY. CALL LIGHT WITHIN REACH, WILL ENDORSE STEEL DIE PRINTER.
[2020-12-07 20:00] VITALS: BP 116/70
--- NOTE | 2020-12-07 20:00 | NUR ---
MS RN NOTE RECEIVED PATIENT IN BED. A/OX3. ALTHOUGH PATIENT DOESNT UNDERSTAND WHY HE WAS ADMITTED. PATIETNT HAS SEVERE WEAKNESS IN ALL EXTREMITIES. TOLERATING ROOM AIR. RESPIRATIONS ARE EVEN AND UNLABORED. NO S/S SOB NOTED. NO C/O PAIN AT THIS TIME, UNLESS STRETCHING/EXTENDING HIS ARMS. IN NO APPARENT DISTRESS. IV ACCESS WAS PULLED OUT. PLACED NEW IV ACCESS IN LEFT HAND #22. BED IS LOW AND LOCKED, HOB ELEVATED IN SEMI FOWLERS, SIDE RIALS UP X2, BED ALARM ON. CALL LIGHT WITHIN REACH. WILL CONTINUE TO MONITOR THROUGHOUT SHIFT.
[2020-12-07] MEDS: CEPHALEXIN MONOHYDRATE 500 MG CAPSULE PO SCH (20:45)
[2020-12-08 04:00] VITALS: BP 157/96
--- NOTE | 2020-12-08 06:12 | NUR ---
MS RN NOTE PATIENT RESTING IN BED. A/OX3. REMAINS TOLERATING ROOM AIR. NO RESP DISTRESS. NO DISTRESS. IV LEFT HAND #22. BED REMAINS LOW AND LOCKED, HOB ELEVATED IN SEMI FOWLERS, SIDE RIALS UP X2, BED ALARM ON. CALL LIGHT WITHIN REACH. WILL ENDORSE TO ONCOMING SHIFT.
[2020-12-08 07:00] LABS: BASOPHILS % (AUTO) 0.4 % (0.0-2.0); HEMATOCRIT 39 % (39-51); HEMOGLOBIN 12.9 g/dL (13.5-17.5); LYMPHOCYTES # (AUTO) 1.3 /CMM (0.8-4.8); LYMPHOCYTES % (AUTO) 19.6 % (20.0-44.0); MEAN CORPUSCULAR HGB CONC 34 g/dl (31.0-36.0); MEAN CORPUSCULAR VOLUME 99 fL (80-96); MONOCYTES # (AUTO) 1.1 /CMM (0.1-1.30); MONOCYTES % (AUTO) 16.8 % (2.0-12.0); NEUTROPHILS # (AUTO) 3.9 /CMM (1.8-8.9); NEUTROPHILS % (AUTO) 61.2 % (43.0-81.0); PLATELET COUNT (AUTO) 216 /CMM (150-450); RED BLOOD CELL COUNT(AUTO) 3.89 MIL/uL (4.5-6.0); WHITE BLOOD COUNT (AUTO) 6.4 K/uL (4.3-11.0)
[2020-12-08 07:18] LABS: ALBUMIN 2.2 g/dL (3.4-5.0); BILIRUBIN,TOTAL 0.7 mg/dL (0.2-1.0); CALCIUM, SERUM 7.8 mg/dL (8.5-10.1); CREATININE 0.8 mg/dL (0.6-1.3); POTASSIUM 3.2 mmol/L (3.5-5.1); TOTAL PROTEIN, SERUM 5.9 g/dL (6.4-8.2)
[2020-12-08 07:59] VITALS: BP 129/87
--- NOTE | 2020-12-08 08:05 | NUR ---
RN NOTES IT NOTIFIED, WOW IS NOT WORKING WILL BE HERE TO FIX IN 30 MIN OR LESS, AWAITING TO PROVIDE MEDICATIONS TO GET WOW REPAIRED SO I CAN SCAN MEDS AND PROVIDE CARE, IF NOT HERE IN NEXT 15 MINUTES WILL NEED TO BORROW ANOTHER RNs COMPUTER TO SCAN MEDS, RECEIVED PATIENT RESTING IN BED BUT AWAKE, ABLE TO MAKE NEEDS KNOWN,A/0 X 3, TOLERATING ROOM AIR. NO RESP DISTRESS NO SOB NOTED, NO DISTRESS. IV LEFT HAND #22. BED REMAINS LOW AND LOCKED, HOB ELEVATED IN SEMI FOWLERS, SIDE RIALS UP X2, BED ALARM ON. CALL LIGHT WITHIN REACH. PT STATED WAS VERY HUNGRY AND PROVIDED BREAKFAST, NO ASPIRATION NOTED, CALL LIGHT IN REACH .
[2020-12-08 08:08] LABS: EOSINOPHILS % (MANUAL) 3 % (0-4); LYMPHOCYTES % (MANUAL) 28 % (16-48); MONOCYTES % (MANUAL) 12 % (0-11.0); NEUTROPHILS % (MANUAL) 57 (42-76)
[2020-12-08] MEDS: FOLIC ACID 1 MG TABLET PO SCH (09:39)
[2020-12-08] MEDS: MULTIVITAMINS,THERAGRAN 1 UDTAB TABLET PO SCH (09:39)
[2020-12-08] MEDS: POTASSIUM CHLORIDE 20 MEQ TAB.PRT.SR PO SCH ×2 (09:39→11:06)
[2020-12-08] MEDS: THIAMINE HCL 100 MG TABLET PO SCH (09:39)
[2020-12-08] MEDS: CEPHALEXIN MONOHYDRATE 500 MG CAPSULE PO SCH ×2 (09:39→20:49)
[2020-12-08 11:15] VITALS: BP 127/98
--- NOTE | 2020-12-08 11:20 | NUR ---
MS/RN RECEIVING NOTES RECEIVED PATIENT A TRANSFER FROM [facility] , ENDORSEMENT GIVEN BY SALTY CARBAJAL, SAFE TRANSFER FROM ROOM TO ROOM 321 KEPT PT IN BED AND MOVED PT IN BED TO ROOM, A/0 X 3, TOLERATING ROOM AIR. NO RESP DISTRESS NO SOB NOTED, IV LEFT HAND #22. ORIENTED PATIENT TO THE ROOM. SAFETY PRECAUTIONS MAINTANIED. BED ON LOWEST POSITION AND LOCKED, HOB ELEVATED IN SEMI FOWLERS, SIDE RIALS UP X2, BED ALARM ON. CALL LIGHT WITHIN REACH, WILL CONTINUE TO MONITOR.
--- NOTE | 2020-12-08 11:37 | NUR ---
RN ON SHIFT NOTES PT TRANSFERRED TO ROOM 321 , REPORT GIVEN TO RN PROVIDING CARE ROXANA, SAFE TRANSFER FROM ROOM TO ROOM 321 KEPT PT IN BED AND MOVED PT IN BED TO ROOM, A/0 X 3, TOLERATING ROOM AIR. NO RESP DISTRESS NO SOB NOTED, IV LEFT HAND #22. BED REMAINS LOW AND LOCKED, HOB ELEVATED IN SEMI FOWLERS, SIDE RIALS UP X2, BED ALARM ON. CALL LIGHT IN REACH, PROVIDED WITH TV CHANNEL CHANGER DEVICE DEMOSTRATED HOW TO USE, GIVEN URINAL, AND COLD ICE WATER, COMPLIANT WITH CARE. .
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
--- NOTE | 2020-12-08 13:50 | NUR ---
Aed Trainer note: 12:20: SW contacted patient's sister, Mila Tovar, , to discuss discharge plan, living arrangement, and transportation. SW was unable to reach the patient's sister and left a VM. 13:25: KOBE received call from patient's [id number], Matthieu, , who expressed concern for the patient's safety, stating that his current admission was a suicide attempt. Matthieu mentioned that the patient is an alcoholic. KOBE thanked Matthieu for the information and mentioned that SW will contact patient's sister, Mila. 13:30: KOBE received missed call from Mila. SW called back the patient's sister. SW received a call from patient's sister who mentioned that the patient is suicidal and an alcoholic. Mila stated that she is concerned for the patient's safety. Per SS consult, patient denied suicidal ideation. KOBE will contact charge nurse, Misael to order a psychiatric consult.
--- NOTE | 2020-12-08 14:50 | NUR ---
Cops note: SW contacted charge nurse Immaculete to order psychiatric consult. RN Immyadi stated that she will notify the patient's nurse of psychiatric consult order with Dr. Zhang.
[2020-12-08 16:00] VITALS: BP 132/86
--- NOTE | 2020-12-08 19:00 | NUR ---
received alert orientated x3 assisted with drinking water verbalizing his needs aspiration precautions call light within his reach bed alarm on watching tv
--- NOTE | 2020-12-08 19:12 | NUR ---
MS/RN CLOSING NOTE PATIENT IN BED, ALERT AND ORIENTED X3. ABLE TO MAKE NEEDS KNOWN. ON ROOM AIR. NO DISTRESS NOTED AT THIS TIME. NO COMPLAINTS OF PAIN AT THIS TIME. IV ACCESS ON R HAND #22G IS INTACT AND PATENT ON SALINE LOCK. SAFETY PRECAUTIONS IN PLACED. BED LOCKED ON LOWEST POSITION, CALL LIGHT WITHIN REACH. WILL ENDORSE TO THE NEXT SHIFT FOR CONTINUITY OF CARE.
[2020-12-08 20:00] VITALS: BP 120/84
[2020-12-08 22:00] VITALS: BP 120/84
--- NOTE | 2020-12-09 04:58 | NUR ---
CLOSING NOTES: SLEPT THRU THE NIGHT GOOD ABOUT BEING AWAKENED WHEN NEED TO REPOSITION HIM HE WILL VERBALIZE HIS NEEDS INCONTINENT US THIS 12 HOURS DENIES PAIN NO SOB REMAINS IN BED SEMIFOWLER'S POSITION NO C/O DIZZINESS
[2020-12-09 06:39] LABS: BASOPHILS % (AUTO) 0.4 % (0.0-2.0); EOSINOPHILS % (AUTO) 1.6 % (0.0-6.0); HEMATOCRIT 38 % (39-51); HEMOGLOBIN 12.8 g/dL (13.5-17.5); LYMPHOCYTES # (AUTO) 1.2 /CMM (0.8-4.8); MEAN CORPUSCULAR HGB CONC 34 g/dl (31.0-36.0); MEAN CORPUSCULAR VOLUME 99 fL (80-96); MONOCYTES # (AUTO) 1.2 /CMM (0.1-1.30); MONOCYTES % (AUTO) 15.9 % (2.0-12.0); NEUTROPHILS # (AUTO) 4.9 /CMM (1.8-8.9); NEUTROPHILS % (AUTO) 66.1 % (43.0-81.0); PLATELET COUNT (AUTO) 263 /CMM (150-450); RED BLOOD CELL COUNT(AUTO) 3.87 MIL/uL (4.5-6.0); WHITE BLOOD COUNT (AUTO) 7.5 K/uL (4.3-11.0)
[2020-12-09 06:48] LABS: CREATININE 0.7 mg/dL (0.6-1.3); MAGNESIUM 1.8 mg/dL (1.8-2.4); POTASSIUM 3.2 mmol/L (3.5-5.1)
--- NOTE | 2020-12-09 07:45 | NUR ---
MS RN OPENING NOTE PATIENT IS IN BED RESTING, PATIENT IS IN NO ACUTE DISTRESS. PATIENT IS ON ROOM AIR, TOLERATING WELL. PATIENT IS ON ASPIRATION PRECAUTIONS. SAFETY PRECAUTIONS ARE ON, BED IS LOCKED, IN THE LOWEST POSITION, WITH SIDE RAILS UP, CALL LIGHT WITHIN REACH.
[2020-12-09 07:46] LABS: BAND % (MANUAL) 1 % (0.0-5.0); EOSINOPHILS % (MANUAL) 2 % (0-4); LYMPHOCYTES % (MANUAL) 12 % (16-48); MONOCYTES % (MANUAL) 17 % (0-11.0); NEUTROPHILS % (MANUAL) 68 (42-76)
[2020-12-09 08:00] VITALS: BP 145/94
[2020-12-09] MEDS ORDERED: POTASSIUM CHLORIDE 20 MEQ TAB.PRT.SR PO ONE (08:00)
[2020-12-09] MEDS: CEPHALEXIN MONOHYDRATE 500 MG CAPSULE PO SCH ×2 (08:51→21:24)
[2020-12-09] MEDS: THIAMINE HCL 100 MG TABLET PO SCH (08:51)
[2020-12-09] MEDS: FOLIC ACID 1 MG TABLET PO SCH (08:51)
[2020-12-09] MEDS: MULTIVITAMINS,THERAGRAN 1 UDTAB TABLET PO SCH (08:51)
[2020-12-09 10:00] VITALS: BP 145/94
[2020-12-09 16:00] VITALS: BP 152/100
--- NOTE | 2020-12-09 18:37 | NUR ---
MS RN CLOSING NOTE PATIENT IS IN BED RESTING, PATIENT IS IN NO ACUTE DISTRESS. PATIENT IS ON ROOM AIR, TOLERATING WELL. SAFETY PRECAUTIONS ARE ON, BED IS LOCKED, IN THE LOWEST POSITION, WITH SIDE RAILS UP, CALL LIGHT WITHIN REACH, ENDORSE PATIENT TO ARCHERY EQUIPMENT HAY SORTER NURSE FOR KIMBERLI.
[2020-12-09 20:00] VITALS: BP 127/82
--- NOTE | 2020-12-10 02:46 | NUR ---
MS/TELE/RN PATIENT IS SLEEPING AT THIS TIME, APPEAR COMFORTABLE, NO SIGNS OF DISTRESS NOTED, CALL LIGHT IN REACH, WILL CONTINUE TO MONITOR.
--- NOTE | 2020-12-10 06:26 | NUR ---
MS/TELE/RN PATIENT IS STILL SLEEPING, APPEAR COMFORTABLE, NO SIGNS OF DISTRESS NOTED, CALL LIGHT IN REACH, ALL NEEDS ATTENDED AT THIS TIME, WILL CONTINUE TO MONITOR.
--- NOTE | 2020-12-10 07:55 | NUR ---
MS RN OPENING NOTE PATIENT IS IN BED RESTING, PATIENT IS IN NO ACUTE DISTRESS. PATIENT IS ON ROOM AIR, TOLERATING WELL. SAFETY PRECAUTIONS ARE ON, BED IS LOCKED, IN THE LOWEST POSITION, WITH SIDE RAILS UP, CALL LIGHT WITHIN REACH. WILL CONTINUE TO MONITOR CLOSELY.
[2020-12-10 08:21] LABS: BASOPHILS % (AUTO) 0.3 % (0.0-2.0); EOSINOPHILS % (AUTO) 1.3 % (0.0-6.0); HEMATOCRIT 39 % (39-51); HEMOGLOBIN 12.9 g/dL (13.5-17.5); LYMPHOCYTES # (AUTO) 1.4 /CMM (0.8-4.8); LYMPHOCYTES % (AUTO) 14.9 % (20.0-44.0); MEAN CORPUSCULAR HGB CONC 34 g/dl (31.0-36.0); MEAN CORPUSCULAR VOLUME 99 fL (80-96); MONOCYTES # (AUTO) 1.3 /CMM (0.1-1.30); MONOCYTES % (AUTO) 14.3 % (2.0-12.0); NEUTROPHILS # (AUTO) 6.5 /CMM (1.8-8.9); NEUTROPHILS % (AUTO) 69.2 % (43.0-81.0); PLATELET COUNT (AUTO) 308 /CMM (150-450); RED BLOOD CELL COUNT(AUTO) 3.91 MIL/uL (4.5-6.0); WHITE BLOOD COUNT (AUTO) 9.4 K/uL (4.3-11.0)
[2020-12-10 09:22] LABS: CALCIUM, SERUM 8.6 mg/dL (8.5-10.1); CREATININE 0.9 mg/dL (0.6-1.3); POTASSIUM 3.9 mmol/L (3.5-5.1)
[2020-12-10] MEDS: FOLIC ACID 1 MG TABLET PO SCH (09:45)
[2020-12-10] MEDS: CEPHALEXIN MONOHYDRATE 500 MG CAPSULE PO SCH ×2 (09:45→20:27)
[2020-12-10] MEDS: MULTIVITAMINS,THERAGRAN 1 UDTAB TABLET PO SCH (09:45)
[2020-12-10] MEDS: THIAMINE HCL 100 MG TABLET PO SCH (09:45)
[2020-12-10] MEDS: SERTRALINE HCL 25 MG TABLET PO SCH (13:08)
--- NOTE | 2020-12-10 19:30 | NUR ---
MS RN OPENING NOTE RECEIVED PT AWAKE IN BED. A/O X3. PT STABLE ON ROOM AIR. NO SOB NOTED. NO S/S OF RESPIRATORY DISTRESS. PT ON BEDREST. PT HAS NO C/O PAIN OR DISCOMFORT AT THIS TIME. IV ACCESS IN RIGHT HAND #22 SALINE-LOCKED, INTACT AND PATENT. SAFETY MEASURES MAINTAINED. BED IN LOWEST LOCKED POSITION, HOB ELEVATED, SIDE RAILS UP X2. CALL LIGHT AND TABLE WITHIN REACH. WILL CONTINUE WITH PLAN OF CARE.
[2020-12-10 20:00] VITALS: BP 129/85
--- NOTE | 2020-12-10 20:05 | NUR ---
MS RN CLOSING NOTE PATIENT IS IN BED RESTING, PATIENT IS IN NO ACUTE DISTRESS. PATIENT IS ON ROOM AIR, TOLERATING WELL. SAFETY PRECAUTIONS ARE ON, BED IS LOCKED, IN THE LOWEST POSITION, WITH SIDE RAILS UP, CALL LIGHT WITHIN REACH. ENDORSE PATIENT TO FOOD PREPARATION SUPERVISOR NURSE FOR KIMBERLI.
--- NOTE | 2020-12-11 06:26 | NUR ---
PT REFUSED WOUND PHOTOS AT THIS TIME. PT EDUCATION GIVEN ON RISKS AND BENEFITS OF WOUND PHOTOS. WILL CONTINUE TO MONITOR.
--- NOTE | 2020-12-11 07:32 | NUR ---
MS RN CLOSING NOTE PT IS AWAKE IN BED. A/O X3. PT STABLE ON ROOM AIR. NO SOB NOTED. NO S/S OF RESPIRATORY DISTRESS. PT ON BEDREST. PT HAS NO C/O PAIN OR DISCOMFORT AT THIS TIME. IV ACCESS IS INTACT, PATENT, AND FLUSHING WELL. SAFETY PRECAUTIONS MAINTAINED AT ALL TIMES. ALL NEEDS HAVE BEEN MET. BED IN LOWEST LOCKED POSITION, HOB ELEVATED, SIDE RAILS UP X2. CALL LIGHT AND TABLE WITHIN REACH. WILL ENDORSE TO ONCOMING NURSE FOR KIMBERLI.
[2020-12-11 08:00] VITALS: BP 128/82
--- NOTE | 2020-12-11 08:00 | NUR ---
RN OPENING NOTE PT AWAKE IN BED. A/O X4 AND HAITIAN SPEAKING. NO COMPLAINT OF PAIN OR NAUSEA. ON RA WITH NO SOB OR RESPIRATORY DISTRESS PRESENT. NO HEAD OF ART PRESENT. NO EDEMA PRESENT. ON BEDREST WITH URINAL AT THE BEDSIDE. SKIN WOUNDS PRESENT, PT REFUSED WOUND PHOTOS. IV PRESENT ON R HAND 22G. LABS REVIEWED. SAFETY MEASURES IN PLACE. SIDE RAILS RAISED. BED LOWERED. CALL LIGHT WITHIN REACH. WILL CONTINUE TO MONITOR.
[2020-12-11] MEDS: THIAMINE HCL 100 MG TABLET PO SCH (08:14)
[2020-12-11] MEDS: FOLIC ACID 1 MG TABLET PO SCH (08:15)
[2020-12-11] MEDS: MULTIVITAMINS,THERAGRAN 1 UDTAB TABLET PO SCH (08:15)
[2020-12-11] MEDS: CEPHALEXIN MONOHYDRATE 500 MG CAPSULE PO SCH ×2 (08:15→20:36)
[2020-12-11] MEDS: SERTRALINE HCL 25 MG TABLET PO SCH (12:04)
--- NOTE | 2020-12-11 12:25 | NUR ---
Air Valve Mechanic note: SW received a call from patient's sister, Mila Ojeda, , who provided SW with [facility] contact information, , to verify patient's insurance coverage. KOBE provided information to Roni in billing department. No further SS intervention at this time, however, KOBE will remain available as needed.
[2020-12-11 16:00] VITALS: BP_SYST 111; BP_SYST 89; BP_DIAS 56; BP_DIAS 64
[2020-12-11] MEDS: HYDROCODONE/APAP 5/325MG TABLET PO PRN (17:11)
[2020-12-11] MEDS: MAG HYDROX/AL HYDROX/SIMETH 30 ML UDC PO PRN (17:11)
--- NOTE | 2020-12-11 17:29 | NUR ---
RN NOTE PT REMOVED IV LINE ON R HAND BY ACCIDENT. CATHETER TIP INTACT. PT REFUSED NEW IV INSERTION. CHARGE NURSE NOTIFIED. NO IV MEDS TO BE ADMINISTERED IN THE FUTURE AND PENDING PLACEMENT FOR DISCHARGE. NO IV TO BE INSERTED. WILL CONTINUE TO MONITOR.
--- NOTE | 2020-12-11 17:59 | NUR ---
RN CLOSING NOTE PT AWAKE IN BED. A/O X4 AND DJIBOUTIAN SPEAKING. COMPLAINT OF PAIN. PAIN MEDS GIVEN. NO NAUSEA. ON RA WITH NO SOB OR RESPIRATORY DISTRESS PRESENT. NO TRANSISTOR TESTER PRESENT. NO EDEMA PRESENT. ON BEDREST WITH URINAL AT THE BEDSIDE. SKIN WOUNDS PRESENT, PT REFUSED WOUND PHOTOS. IV PRESENT ON R HAND 22G. ROUTINE MEDS GIVEN. SAFETY MEASURES IN PLACE. SIDE RAILS RAISED. BED LOWERED. CALL LIGHT WITHIN REACH. REPORT TO BE GIVEN TO NIGHT NURSE FOR KIMBERLI.
[2020-12-11] MEDS ORDERED: CALCIUM CARBONATE 500 MG TAB.CHEW PO PRN (19:00)
--- NOTE | 2020-12-11 19:40 | NUR ---
MS RN OPENING NOTES: RECEIVED PATIENT SLEEP IN BED COMFORTABLY, AROUSABLE TO STIMULI, BED IN LOW POSITION, CALLL LIGHTS WITHIN REACH, NO COMPLAIN OF PAIN AND DISCOMFORT AT THIS TIME, A/OX4, TO USE URINAL, PATIENT KEPT CLEAN AND DRY, ALL NEEDS MET, WILL CONTINUE TO MONITOR.
[2020-12-11 20:00] VITALS: BP 113/71
[2020-12-12 08:00] VITALS: BP 139/92
--- NOTE | 2020-12-12 08:00 | NUR ---
RN OPENING NOTE PT AWAKE IN BED. A/O X4 AND EMIRATI SPEAKING. NO COMPLAINT OF PAIN OR NAUSEA. ON RA WITH NO SOB OR RESPIRATORY DISTRESS PRESENT. NO RETAIL LOSS PREVENTION OFFICER PRESENT. NO EDEMA PRESENT. ON BEDREST WITH URINAL AT THE BEDSIDE. SKIN WOUNDS PRESENT, WOUND CARE TO BE GIVEN. NO IV PRESENT. CHARGE NURSE NOTIFIED ABOUT NO IV STATUS. LABS REVIEWED. SAFETY MEASURES IN PLACE. SIDE RAILS RAISED. BED LOWERED. CALL LIGHT WITHIN REACH. WILL CONTINUE TO MONITOR.
--- NOTE | 2020-12-12 08:01 | NUR ---
MS RN CLOSING NOTE: PATIENT WAS IN ROOM AWAKE IN BED, BNO COMPLAIN OF PAIN AND DISCOMFORT AT THIS TIME, BED IN LOW POSITION, CALL LIGHTS WITHIN REACH, PATIENT A/OX4 ON BEDRESTT, ON MONITORING FOR FALL, AL NEEDS MET, KEPT CLEAN AND DRY, WILL CONTINUE TO MONITOR.
[2020-12-12] MEDS: FOLIC ACID 1 MG TABLET PO SCH (08:17)
[2020-12-12] MEDS: MULTIVITAMINS,THERAGRAN 1 UDTAB TABLET PO SCH (08:17)
[2020-12-12] MEDS: CEPHALEXIN MONOHYDRATE 500 MG CAPSULE PO SCH ×2 (08:17→21:33)
[2020-12-12] MEDS: THIAMINE HCL 100 MG TABLET PO SCH (08:17)
[2020-12-12] MEDS: SERTRALINE HCL 25 MG TABLET PO SCH (12:04)
[2020-12-12] MEDS ORDERED: LIDOCAINE 1% INJ 50 ML MDV IJ ONE (15:00)
[2020-12-12 16:00] VITALS: BP 129/88
[2020-12-12 16:43] LABS: CSF GLUCOSE 85 mg/dL (40-70); CSF PROTEIN 49.8 mg/dL (15-45)
--- NOTE | 2020-12-12 18:15 | NUR ---
RN CLOSING NOTE PT SLEEPING IN BED. AROUSES TO NAME. A/O X4 AND ARABIC SPEAKING. NO COMPLAINT OF PAIN. NO NAUSEA. ON RA WITH NO SOB OR RESPIRATORY DISTRESS PRESENT. NO GEOPHYSICS TEACHER PRESENT. NO EDEMA PRESENT. ON BEDREST WITH URINAL AT THE BEDSIDE. SKIN WOUNDS PRESENT, PT REFUSED WOUND PHOTOS. WOUND CARE GIVEN. NO IV PRESENT. CHARGE NURSE NOTIFIED. ROUTINE MEDS GIVEN. SAFETY MEASURES IN PLACE. SIDE RAILS RAISED. BED LOWERED. CALL LIGHT WITHIN REACH. REPORT TO BE GIVEN TO NIGHT NURSE FOR KIMBERLI.
[2020-12-12] MEDS ORDERED: diphenhydrAMINE HCL 25 MG CAPSULE PO PRN (19:30)
--- NOTE | 2020-12-12 19:45 | NUR ---
MS RN OPENING NOTES: RECEIVED PATIENT AWAKE IN BED, BED IN LOW POSITION, CALL LIGHTS WITHIN REACH, NO COMPLAIN OF PAIN AND DISCOMFORT AT THIS TIME, A/OX4 BR USING URINAL, ON MONITORING FOR FALL, REMIND RESIDENT TOUSE CALL LIGHTS WHEN NEEDED ASSISTANCE, KEPT CLEAN AND DRY, WILL CONTINUE TO MONITOR.
[2020-12-12 20:59] VITALS: BP 114/66
--- NOTE | 2020-12-13 07:15 | NUR ---
ms rn received on bed, awake,alert,oriented x4,not in any form of distress noted, lungs are clear,abdomen soft,positive bowel sounds,denies pain at this time.
--- NOTE | 2020-12-13 07:30 | NUR ---
MS RN CLOSING NOTES: PATIENT AWAKE IN BED, A/O X34, BED IN LOW POSITION , CALL LIGHTS WITHIN REACH,NO COMPLAIN OF PAIN AND DISCOMFORT, NO SOB NOTED, ALL NEEDS MET,ENDORSE TO INCOMING SHIFT.
[2020-12-13 08:00] VITALS: BP 144/95
--- NOTE | 2020-12-13 09:00 | NUR ---
ms villa breakfast served,due meds given,tolerated well.due meds given,tolerated well.
[2020-12-13] MEDS: FOLIC ACID 1 MG TABLET PO SCH (09:07)
[2020-12-13] MEDS: CEPHALEXIN MONOHYDRATE 500 MG CAPSULE PO SCH ×2 (09:07→20:30)
[2020-12-13] MEDS: THIAMINE HCL 100 MG TABLET PO SCH (09:07)
[2020-12-13] MEDS: MULTIVITAMINS,THERAGRAN 1 UDTAB TABLET PO SCH (09:08)
[2020-12-13] MEDS: HYDROCODONE/APAP 5/325MG TABLET PO PRN (11:42)
[2020-12-13] MEDS: SERTRALINE HCL 25 MG TABLET PO SCH (13:49)
[2020-12-13] MEDS ORDERED: CEPH500C2 PO (13:56)
[2020-12-13] MEDS ORDERED: Folic Acid PO (13:56)
[2020-12-13] MEDS ORDERED: LORA-259 PO (13:56)
[2020-12-13] MEDS ORDERED: CALC500T63 PO (13:56)
[2020-12-13] MEDS ORDERED: MULT-24 PO (13:56)
[2020-12-13] MEDS ORDERED: SERT-437 PO (13:56)
[2020-12-13] MEDS ORDERED: THIA500T PO (13:56)
[2020-12-13] MEDS ORDERED: HYDR-3972 PO (13:56)
[2020-12-13] MEDS ORDERED: ACET325T53 PO (13:56)
[2020-12-13] MEDS ORDERED: HYDR28.34 TP (13:56)
[2020-12-13] MEDS: HYDROCORTISONE OINT 1% 28.35 GM TUBE TP SCH (17:11)
--- NOTE | 2020-12-13 19:30 | NUR ---
MS RN OPENING NOTES: RECEIVED PATIENT IN BED AWAKE, ALERT AND ORIENTED X4, ABLE TO MAKE NEEDS KNOWN. ON ROOM AIR TOLERATING WELL, NO ACUTE RESPIRATORY DISTRESS NOTED. SAFETY PRECAUTIONS OBSERVED: BED IN LOWEST LOCKED POSITION, KEPT CALL LIGHT WITHIN EASY REACH, NO COMPLAINTS OF PAIN AT THIS TIME. INSTRUCTED PATIENT TO USE CALL LIGHT WHEN NEEDED ASSISTANCE, PATIENT VERBALIZED UNDERSTANDING. NO IV ACCESS, PATIENT REFUSED IV REINSERTION. WILL CONTINUE TO MONITOR PATIENT'S CURRENT STATUS.
[2020-12-13 20:00] VITALS: BP 128/76
[2020-12-13 20:05] VITALS: BP 128/76
--- NOTE | 2020-12-14 06:39 | NUR ---
MS RN CLOSING NOTES PATIENT IN BED, ASLEEP, EASILY AWAKEN BY VERBAL AND TACTILE STIMULI. NO ACUTE DISTRESS NOTED. VS WNL. NO IV ACCESS NOTED. NOTED WITH WOUND ON CHEST WALL AND RIGHT KNEE. ON ROOM AIR TOLERATING WELL, NO SOB NOTED. NO COMPLAINTS OF PAIN AT THIS TIME. SAFETY PRECAUTIONS OBSERVED AND MAINTAINED DURING THE SHIFT: BED ON LOWEST LOCKED POSITION, SIDE RAILS UP X 2. KEPT CALL LIGHT WITHIN EASY REACH. ALL NEEDS ATTENDED AND MET. DUE MEDS GIVEN ORDERED. ENDORSED TO MORNING SHIFT NURSE FOR CONTINUITY OF CARE.
--- NOTE | 2020-12-14 07:12 | NUR ---
MS RN OPENING NOTES: RECEIVED PATIENT SLEEP IN BED COMFORTABLY, EASILY AROUSABLE TO STIMULI. BED IN LOW POSITION, CALL LIGHTS WITHIN REACH, NO COMPLAIN OF PAIN AND DISCOMFORT AT THIS TIME, A/OX4, TO USES URINAL, PATIENT KEPT CLEAN AND DRY, ALL NEEDS MET, WILL CONTINUE TO MONITOR.
[2020-12-14 08:00] VITALS: BP 139/88
[2020-12-14] MEDS: HYDROCORTISONE OINT 1% 28.35 GM TUBE TP SCH ×2 (09:00→17:00)
[2020-12-14] MEDS: FOLIC ACID 1 MG TABLET PO SCH (09:13)
[2020-12-14] MEDS: THIAMINE HCL 100 MG TABLET PO SCH (09:13)
[2020-12-14] MEDS: MULTIVITAMINS,THERAGRAN 1 UDTAB TABLET PO SCH (09:13)
[2020-12-14] MEDS: CEPHALEXIN MONOHYDRATE 500 MG CAPSULE PO SCH (09:13)
[2020-12-14] MEDS ORDERED: LIDOCAINE 1%-EPI 1:100,000 20 ML VIAL TP ONE (11:30)
[2020-12-14] MEDS ORDERED: SILVER NITRATE APPLICATOR 1 EA BOX TP ONE (11:30)
--- NOTE | 2020-12-14 11:45 | NUR ---
MS RN NOTE PATIENT SEEN BY RADIOLOGY TECHNICIAN AND WOUND DEBRIDEMENT DONE ON THE MID CHEST AREA AND ON THE RIGHT KNEE. PROCEDURE TOLERATED WELL. COVERED WITH DRY DRESSING, DRY AND INTACT. COMFORT MEASURES PROVIDED. WILL CONTINUE TO MONITOR PATIENT.
[2020-12-14] MEDS: SERTRALINE HCL 25 MG TABLET PO SCH (13:44)
[2020-12-14] MEDS: MORPHINE SULFATE INJ 2 MG/ML DISP.SYRIN IV PRN ×2 (13:55→19:49)
[2020-12-14] MEDS: MAG HYDROX/AL HYDROX/SIMETH 30 ML UDC PO PRN (14:59)
--- NOTE | 2020-12-14 19:10 | NUR ---
RN CLOSING NOTE PT SLEEPING IN BED. AROUSES TO NAME. A/O X4 AND NICARAGUAN SPEAKING. NO COMPLAINT OF PAIN. NO NAUSEA. ON RA WITH NO SOB OR RESPIRATORY DISTRESS PRESENT. NO LAND SURVEYOR ASSISTANT PRESENT. NO EDEMA PRESENT. ON BEDREST WITH URINAL AT THE BEDSIDE. WOUND CARE GIVEN. WITH IV ACCESS ON RIGHT HAND G24. ROUTINE MEDS GIVEN. SAFETY MEASURES IN PLACE. SIDE RAILS RAISED. BED LOWERED. CALL LIGHT WITHIN REACH. PATIENT FOR TRANSFER TO [facility], AWAITING BARREL LATHE OPERATOR OUTSIDE BY AMBULANCE. PATIENT ENDORSED TO [facility]RB[facility] OF [facility] [phone]. REPORT TO BE GIVEN TO NIGHT NURSE FOR KIMBERLI.
--- NOTE | 2020-12-14 20:24 | NUR ---
Patient left with 2 plant senior manager to be transferred to [facility] at 2019 in stable condition. D/c Vital signs BP 137/91, Temp 98.1, HR 81, O2 97% on RA, RR 17. A&Ox4, able to make needs known. Morphine given at 1949 for abd, hands, and feet pain 03/02. Patient states he feels some relief before being transferred -plant senior manager aware. AM nurse provided report to plant senior manager and nurse at [facility]. Per RN at [facility] instructed to keep in #24gauge IV to R hand. All wristbands removed.
== END 2020-12-14 20:25 | DRG 853 ==
LOC: ER 14:50 → TELE1 18:22 → TELE-TD 21:29 → TELE1 12-05 08:04 → MEDSG1 12-06 09:31 → MED 12-08 11:38
PROVIDERS: ADMIT Nurse Practitioner Acute Care; ATTEND Nurse Practitioner Acute Care
PROC: 009U3ZX Drainage of Spinal Canal, Percutaneous Approach, Diagnostic (ICD-10-PCS; principal; 2020-12-12)
PROC: 0JB60ZZ Excision of Chest Subcutaneous Tissue and Fascia, Open Approach (ICD-10-PCS; 2020-12-14)
PROC: 0JBN0ZZ Excision of Right Lower Leg Subcutaneous Tissue and Fascia, Open Approach (ICD-10-PCS; 2020-12-14)
DX: A41.9 Sepsis, unspecified organism (principal); N17.0 Acute kidney failure with tubular necrosis; J18.9 Pneumonia, unspecified organism; G93.41 Metabolic encephalopathy; D68.59 Other primary thrombophilia; S21.109A Unspecified open wound of unspecified front wall of thorax without penetration into thoracic cavity, initial encounter; E44.0 Moderate protein-calorie malnutrition; E87.0 Hyperosmolality and hypernatremia; E87.2 Acidosis; N39.0 Urinary tract infection, site not specified; M62.82 Rhabdomyolysis; L03.313 Cellulitis of chest wall; R65.20 Severe sepsis without septic shock; M16.11 Unilateral primary osteoarthritis, right hip; Z20.822 Contact with and (suspected) exposure to COVID-19; E86.0 Dehydration; E87.6 Hypokalemia; G62.9 Polyneuropathy, unspecified; E80.6 Other disorders of bilirubin metabolism; Z87.820 Personal history of traumatic brain injury; Z96.642 Presence of left artificial hip joint; F32.9 Major depressive disorder, single episode, unspecified; R74.01 Elevation of levels of liver transaminase levels; F10.10 Alcohol abuse, uncomplicated; Y90.9 Presence of alcohol in blood, level not specified; B95.2 Enterococcus as the cause of diseases classified elsewhere; Z68.24 Body mass index [BMI] 24.0-24.9, adult; E88.09 Other disorders of plasma-protein metabolism, not elsewhere classified; S51.002A Unspecified open wound of left elbow, initial encounter; X58.XXXA Exposure to other specified factors, initial encounter; Y93.9 Activity, unspecified; Y92.009 Unspecified place in unspecified non-institutional (private) residence as the place of occurrence of the external cause; S81.001A Unspecified open wound, right knee, initial encounter; R74.9 Abnormal serum enzyme level, unspecified; Z74.09 Other reduced mobility; R53.1 Weakness
CPT/HCPCS: 36415; 70450-TC; 70551-TC; 71045-TC; 72125-TC; 80048-TC; 80053-TC; 80061-TC; 80076-TC; 81001; 82140-TC; 82550-TC; 82553; 82570-TC; 83605-TC; 83735-TC; 84100-TC; 84155-TC; 84157; 84166; 84300-TC; 84425; 84443-TC; 84484-TC; 85025-TC; 85652-TC; 85730-TC; 86140-TC; 86592; 86694; 86803; 87040-TC; 87070-TC; 87081-TC; 87086-TC; 87186-TC; 87340; 87806; 89051-TC; 92526; 92611-TC; 97112-TC; 97116-TC; 97530-TC; A6253; A6403; C9803; G0378; J0696; J2270; J2543; J3480; J3490; J7030; J7040; J7050; J7060; J7070

== ENCOUNTER 2021-01-24 16:06 | Emergency (ER) | payer BC ==
[~2021-01-24] VITALS: Ht 180.3 cm; Wt 83.9 kg
[~2021-01-24 16:06] MED LIST changes: +ACET325T53 PO; +CALC500T63 PO; +CEPH500C2 PO; -Calcium Carb 600MG /Vit D PO; -DOCU-270 PO; +HYDR-3972 PO; +HYDR28.34 TP; +LORA-259 PO; +MULT-24 PO; -OXYC1TAB8 PO; -SENN-261 PO; +SERT25TA5 PO; +THIA500T PO; -oxyCODONE HCL SR 10MG PO
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
[2021-01-24] MEDS ORDERED: TDAP [DIPH/PERTUSSIS/TET] 0.5 ML VIAL IM ONE ×2 (16:24→16:30)
--- NOTE | 2021-01-24 16:39 | NUR ---
The patient is taken to CT in stable condition
--- NOTE | 2021-01-24 17:03 | NUR ---
THE PATIENT IS BACK FROM CT IN STABLE CONDITION
[2021-01-24] MEDS ORDERED: MUPIROCIN OINT 2% 22 GM TUBE ONE (17:27)
[2021-01-24] MEDS ORDERED: CEFTRIAXONE 1 G VIAL IM ONE (17:30)
[2021-01-24] MEDS ORDERED: MUPIROCIN OINT 2% 22 GM TUBE TP ONE (17:30)
[2021-01-24] MEDS ORDERED: LIDOCAINE /MPF 1% VIAL 5 ML VIAL ONE (17:38)
[2021-01-24] MEDS ORDERED: CEFTRIAXONE 1 G VIAL ONE (17:39)
--- NOTE | 2021-01-24 17:49 | NUR ---
PATIENT A/OX4, BREATHING EVEN AND UNLABORED, NO SOB NOTED.
[2021-01-24] MEDS ORDERED: CEPH500C2 PO (18:23)
[2021-01-24] MEDS ORDERED: MUPI22OI7 MC (18:23)
[2021-01-24 18:42] VITALS: BP 129/74
--- NOTE | 2021-01-24 18:42 | NUR ---
Patient discharged to home in stable condition. Written and verbal after care instructions given. Patient verbalizes understanding of instruction. Patient assisted to waiting room, will call for a taxi.
== END 2021-01-24 18:43 | disposition home or self-care (01) ==
LOC: ER 16:26
DX: S80.01XA Contusion of right knee, initial encounter (principal); S30.0XXA Contusion of lower back and pelvis, initial encounter; S09.8XXA Other specified injuries of head, initial encounter; F10.129 Alcohol abuse with intoxication, unspecified; M11.261 Other chondrocalcinosis, right knee; Z60.2 Problems related to living alone; Z79.899 Other long term (current) drug therapy; W01.198A Fall on same level from slipping, tripping and stumbling with subsequent striking against other object, initial encounter; Y93.01 Activity, walking, marching and hiking; Y92.89 Other specified places as the place of occurrence of the external cause; Y99.8 Other external cause status; Y90.9 Presence of alcohol in blood, level not specified
CPT/HCPCS: 70450; 72110; 73564; 90471; 90715; 96372; 99284; J0696; J3490

== ENCOUNTER 2021-12-27 10:46 | Emergency (ER) | payer BC ==
[~2021-12-27] VITALS: Ht 177.8 cm; Wt 88.5 kg
[~2021-12-27 10:46] MED LIST changes: +MUPI22OI7 MC
[2021-12-27] MEDS ORDERED: LEVETIRACETAM (500MG) 1,000 MG in IV NS 0.9% 100 ML IV SCH (11:00)
[2021-12-27] MEDS ORDERED: LORAZEPAM INJ 2 MG/ML VIAL IV ONE (11:00)
--- NOTE | 2021-12-27 11:00 | NUR ---
Anxious, Encouraged relaxation techniques. Reiterated plan of care
[2021-12-27] MEDS ORDERED: LORAZEPAM INJ 2 MG/ML VIAL ONE (11:12)
[2021-12-27] MEDS ORDERED: ONDANSETRON HCL/PF 4 MG/2 ML VIAL ONE ×2 (11:13→11:20)
[2021-12-27 11:20] LABS: BASOPHILS % (AUTO) 0.3 % (0.0-2.0); EOSINOPHILS % (AUTO) 0.1 % (0.0-6.0); HEMATOCRIT 45 % (39-51); HEMOGLOBIN 15.5 g/dL (13.5-17.5); LYMPHOCYTES # (AUTO) 0.9 K/uL (0.8-4.8); LYMPHOCYTES % (AUTO) 12.7 % (20.0-44.0); MEAN CORPUSCULAR HGB CONC 35 g/dl (31.0-36.0); MEAN CORPUSCULAR VOLUME 98 fL (80-96); MONOCYTES # (AUTO) 0.5 K/uL (0.1-1.30); MONOCYTES % (AUTO) 6.4 % (2.0-12.0); NEUTROPHILS % (AUTO) 80.5 % (43.0-81.0); PLATELET COUNT (AUTO) 204 K/uL (150-450); RED BLOOD CELL COUNT(AUTO) 4.54 MIL/uL (4.5-6.0); WHITE BLOOD COUNT (AUTO) 7.5 K/uL (4.3-11.0)
[2021-12-27] MEDS ORDERED: ONDANSETRON HCL/PF - ER 4 MG/2 ML VIAL IV ONE (11:30)
[2021-12-27 11:43] LABS: CALCIUM, SERUM 9.8 mg/dL (8.5-10.1); CARBON DIOXIDE 30 mmol/L (21-32); CHLORIDE 89 mmol/L (98-107); CREATININE 0.7 mg/dL (0.6-1.3); GLUCOSE 126 mg/dL (74-106); POTASSIUM 3.3 mmol/L (3.5-5.1); SODIUM SERUM 131 mmol/L (136-145); UREA NITROGEN, BLOOD 4 mg/dL (7-18)
[2021-12-27 11:49] LABS: ALANINE AMINOTRANSFERASE 50 U/L (12-78); ALBUMIN 4.6 g/dL (3.4-5.0); ALKALINE PHOSPHATASE 99 U/L (46-116); ASPARTATE AMINOTRANSFERASE 80 U/L (15-37); BILIRUBIN,DIRECT 0.6 mg/dL (0.0-0.2); BILIRUBIN,TOTAL 2.3 mg/dL (0.2-1.0); TOTAL PROTEIN, SERUM 8.6 g/dL (6.4-8.2)
[2021-12-27 11:53] LABS: ALCOHOL, BLOOD < 3 mg/dL (0-0)
--- NOTE | 2021-12-27 12:21 | NUR ---
Reclining in [facility]. NO acute distress VSS
--- NOTE | 2021-12-27 12:21 | NUR ---
Virgen prieto in [facility] - 12/27/21 at 1221 by DELORES Reclining in bed [place] acute changes. VSS
[2021-12-27] MEDS ORDERED: LEVE1000 PO (12:25)
[2021-12-27] MEDS ORDERED: CHLO25CA22 PO (12:25)
[2021-12-27] MEDS ORDERED: CHLORDIAZEPOXIDE HCL 25 MG CAPSULE PO ONE (12:30)
[2021-12-27] MEDS ORDERED: CHLORDIAZEPOXIDE HCL 25 MG CAPSULE ONE (12:42)
[2021-12-27 13:03] VITALS: BP 159/100
--- NOTE | 2021-12-27 13:04 | NUR ---
Able to tolerate po fluids. For dc Patient discharged to home in stable condition. Written and verbal after care instructions given. Patient verbalizes understanding of instruction.
== END 2021-12-27 13:04 | disposition home or self-care (01) ==
LOC: ER 10:47
DX: F10.239 Alcohol dependence with withdrawal, unspecified (principal); G40.909 Epilepsy, unspecified, not intractable, without status epilepticus; Z60.2 Problems related to living alone; Z79.899 Other long term (current) drug therapy; Y90.0 Blood alcohol level of less than 20 mg/100 ml
CPT/HCPCS: 36415; 70450; 71045; 80048; 80076; 80320; 82962; 85025; 93005; 96365; 96375; 99285; J1953; J2060; J2405 ×3; J7030; G0480

== ENCOUNTER 2022-01-27 17:47 | Emergency (ER) | payer BC ==
[~2022-01-27] VITALS: Ht 182.9 cm; Wt 81.6 kg
[~2022-01-27 17:47] MED LIST changes: +CHLO25CA22 PO; +LEVE1000 PO
--- NOTE | 2022-01-27 18:25 | NUR ---
BIBRA60 FROM HOME C/O NAUSEA AND VOMITING AND TREMORS, LAST DRINK 2DAYS AGO. PLACED ON BED, AAOX4, BREATHING EVEN AND UNLABORED.
[2022-01-27] MEDS ORDERED: ONDANSETRON HCL/PF 4 MG/2 ML VIAL IVP ONE (18:30)
[2022-01-27] MEDS ORDERED: IV NS 0.9% 1,000 ML BAG IV ONE (18:30)
[2022-01-27] MEDS ORDERED: Thiamine 100 MG in IV D5W 50 ML IV SCH (18:30)
[2022-01-27] MEDS ORDERED: ONDANSETRON HCL/PF 4 MG/2 ML VIAL ONE (18:38)
[2022-01-27] MEDS ORDERED: LEVETIRACETAM (500MG) 1,000 MG in IV NS 0.9% 100 ML IV SCH (19:00)
[2022-01-27] MEDS ORDERED: LORAZEPAM INJ 2 MG/ML VIAL IV ONE (19:00)
--- NOTE | 2022-01-27 19:00 | NUR ---
BLOOD DRAWN AND SENT TO LAB
[2022-01-27] MEDS ORDERED: LEVETIRACETAM (500MG) 500 MG/5 ML VIAL IV ONE (19:33)
[2022-01-27] MEDS ORDERED: LORAZEPAM INJ 2 MG/ML VIAL ONE (19:34)
[2022-01-27 20:06] LABS: BASOPHILS % (AUTO) 0.3 % (0.0-2.0); HEMATOCRIT 44 % (39-51); HEMOGLOBIN 15.2 g/dL (13.5-17.5); LYMPHOCYTES # (AUTO) 0.8 K/uL (0.8-4.8); LYMPHOCYTES % (AUTO) 18.3 % (20.0-44.0); MEAN CORPUSCULAR HGB CONC 35 g/dl (31.0-36.0); MEAN CORPUSCULAR VOLUME 100 fL (80-96); MONOCYTES # (AUTO) 0.5 K/uL (0.1-1.30); MONOCYTES % (AUTO) 10.1 % (2.0-12.0); NEUTROPHILS # (AUTO) 3.2 K/uL (1.8-8.9); NEUTROPHILS % (AUTO) 71.3 % (43.0-81.0); PLATELET COUNT (AUTO) 201 K/uL (150-450); RED BLOOD CELL COUNT(AUTO) 4.38 MIL/uL (4.5-6.0); WHITE BLOOD COUNT (AUTO) 4.5 K/uL (4.3-11.0)
[2022-01-27 20:14] LABS: ALANINE AMINOTRANSFERASE 62 U/L (12-78); ALBUMIN 4.5 g/dL (3.4-5.0); ALKALINE PHOSPHATASE 98 U/L (46-116); ASPARTATE AMINOTRANSFERASE 58 U/L (15-37); BILIRUBIN,DIRECT 0.6 mg/dL (0.0-0.2); BILIRUBIN,TOTAL 2.7 mg/dL (0.2-1.0); CALCIUM, SERUM 9.8 mg/dL (8.5-10.1); CARBON DIOXIDE 24 mmol/L (21-32); CHLORIDE 93 mmol/L (98-107); CREATININE 0.9 mg/dL (0.6-1.3); GLUCOSE 153 mg/dL (74-106); POTASSIUM 3.3 mmol/L (3.5-5.1); SODIUM SERUM 132 mmol/L (136-145); TOTAL PROTEIN, SERUM 8.5 g/dL (6.4-8.2); UREA NITROGEN, BLOOD 8 mg/dL (7-18)
[2022-01-27 20:19] LABS: ALCOHOL, BLOOD < 3 mg/dL (0-0)
[2022-01-27] MEDS ORDERED: POTASSIUM CHLORIDE 20 MEQ TAB.PRT.SR PO ONE ×2 (20:30→20:42)
[2022-01-27] MEDS ORDERED: ONDA4TAB5 PO (20:40)
[2022-01-27] MEDS ORDERED: CHLO25CA22 PO (20:40)
[2022-01-27 20:42] VITALS: BP 138/89
--- NOTE | 2022-01-27 20:42 | NUR ---
IV removed. Catheter intact and site benign. Pressure and 4x4 applied to site. No bleeding noted.
--- NOTE | 2022-01-27 20:42 | NUR ---
Patient discharged to home in stable condition. Written and verbal after care instructions given. Patient verbalizes understanding of instruction.
== END 2022-01-27 20:48 | disposition home or self-care (01) ==
LOC: ER 17:50
DX: F10.239 Alcohol dependence with withdrawal, unspecified (principal); R11.10 Vomiting, unspecified; M16.11 Unilateral primary osteoarthritis, right hip; Z60.2 Problems related to living alone; Z79.899 Other long term (current) drug therapy; Y90.0 Blood alcohol level of less than 20 mg/100 ml
CPT/HCPCS: 99284; 96365; 96367; 96375; 71045; 85025; 80048; 80076; 36415; 80320; J2060; J2405; J7060; J7030 ×3; J3411; J1953 ×2; G0480

== ENCOUNTER 2022-08-06 21:18 | Inpatient (IN) | payer BC ==
[~2022-08-06] VITALS: Ht 180.3 cm; Wt 74.4 kg
[~2022-08-06 21:18] MED LIST changes: +ONDA4TAB5 PO
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
--- NOTE | 2022-08-06 22:00 | NUR ---
SECURITY AT BED SIDE FR COLETTE
--- NOTE | 2022-08-06 22:41 | NUR ---
XRAY AT BEDSIDE
--- NOTE | 2022-08-06 22:48 | NUR ---
COVID SWAB COLLECTED
--- NOTE | 2022-08-06 23:20 | NUR ---
PT UNABLE TO PROVIDE URINE AT THIS TIME, URINAL AT BEDSIDE
--- NOTE | 2022-08-06 23:48 | NUR ---
IV LINE ESTABLISHED, LFA20G
--- NOTE | 2022-08-06 23:48 | NUR ---
XRAY AT BEDSIDE
--- NOTE | 2022-08-06 23:49 | NUR ---
BLOOD COLLECTED AND SENT TO LAB
[2022-08-06 23:57] LABS: BASOPHILS % (AUTO) 0.2 % (0.0-2.0); EOSINOPHILS % (AUTO) 0.1 % (0.0-6.0); HEMATOCRIT 41 % (39-51); MEAN CORPUSCULAR HGB CONC 35 g/dl (31.0-36.0); MEAN CORPUSCULAR VOLUME 100 fL (80-96); MONOCYTES # (AUTO) 1.3 K/uL (0.1-1.30); MONOCYTES % (AUTO) 18.9 % (2.0-12.0); NEUTROPHILS # (AUTO) 4.5 K/uL (1.8-8.9); NEUTROPHILS % (AUTO) 66.8 % (43.0-81.0); PLATELET COUNT (AUTO) 362 K/uL (150-450); RED BLOOD CELL COUNT(AUTO) 4.06 MIL/uL (4.5-6.0); WHITE BLOOD COUNT (AUTO) 6.8 K/uL (4.3-11.0)
[2022-08-07 00:19] LABS: ALANINE AMINOTRANSFERASE 77 U/L (12-78); ALBUMIN 3.2 g/dL (3.4-5.0); ALCOHOL, BLOOD < 3 mg/dL (0-0); ALKALINE PHOSPHATASE 98 U/L (46-116); ASPARTATE AMINOTRANSFERASE 81 U/L (15-37); BILIRUBIN,DIRECT 1.2 mg/dL (0.0-0.2); BILIRUBIN,TOTAL 3.1 mg/dL (0.2-1.0); CALCIUM, SERUM 9.2 mg/dL (8.5-10.1); CARBON DIOXIDE 26 mmol/L (21-32); CHLORIDE 89 mmol/L (98-107); GLUCOSE 123 mg/dL (74-106); SODIUM SERUM 130 mmol/L (136-145); UREA NITROGEN, BLOOD 9 mg/dL (7-18)
--- NOTE | 2022-08-07 00:21 | NUR ---
CONSENT FORM FOR RIGHT SHOULDER REDUCTION UNDER MODERATE SEDATION SIGNED BY PATIENT
[2022-08-07 00:23] LABS: POTASSIUM 2.8 mmol/L (3.5-5.1)
--- NOTE | 2022-08-07 00:23 | NUR ---
POTASSIUM 2.8 , MD AWARE
[2022-08-07] MEDS ORDERED: PROPOFOL 20 ML IV ONE ×2 (00:30→01:09)
[2022-08-07] MEDS ORDERED: POTASSIUM CHLORIDE 20 MEQ TAB.PRT.SR PO ONE ×3 (00:30→01:41)
--- NOTE | 2022-08-07 01:00 | NUR ---
PROCEDURE FOR RIGHT SHOULDER REDUCTION W/ MODERATE SEDATION RT AND MD AT BEDSIDE PT CONNECTED TO POX AND HEART MONITOR,RR EVEN AND NON LABORED. VSS. HR:110 BP: 140/93 O2: 98% 4L NASAL CANNULA @0102 PROPOFOL 100MG VIA IV LFA20G @0103 PROPOFOL 20MG VIA IV LFA20G @0104 PROPOFOL 20MG VIA IV LFA20G @0105 PROPOFOL 20MG VIA IV LFA20G HR:95 BP: 130/90 O2: 100% 4L NASAL CANNULA @0109 PROPOFOL 40MG VIA IV LFA20G @0111 PROPOFOL 40MG VIA IV LFA20G HR:94 BP: 122/79 O2: 99% 4L NASAL CANNULA @0114 PROPOFOL 40MG VIA IV LFA20G HR:99 BP: 126/91 O2: 99% 4L NASAL CANNULA PROCEDURE UNSUCCESSFUL
[2022-08-07] MEDS ORDERED: PROPOFOL 200 MG/20 ML VIAL IV ONE (01:30)
[2022-08-07] MEDS ORDERED: ONDANSETRON HCL/PF 4 MG/2 ML VIAL ONE (01:45)
[2022-08-07] MEDS ORDERED: MORPHINE SULFATE INJ 4 MG/ML DISP.SYRIN ONE (01:45)
[2022-08-07] MEDS ORDERED: ONDANSETRON HCL/PF 4 MG/2 ML VIAL IV ONE (02:00)
[2022-08-07] MEDS ORDERED: MORPHINE SULFATE INJ 2 MG/ML DISP.SYRIN IV ONE (02:00)
--- NOTE | 2022-08-07 04:13 | NUR ---
IV removed. Catheter intact and site benign. Pressure and 4x4 applied to site. No bleeding noted.
--- NOTE | 2022-08-07 04:13 | NUR ---
Virgen prieto in [facility] - 08/07/22 at 0505 by DENA Patient discharged to home in stable condition. Written and verbal after care instructions given. Patient verbalizes understanding of instruction.
--- NOTE | 2022-08-07 04:45 | NUR ---
PT STATES "UNABLE TO WALK FOR WEEKS, HAVING LEG PAIN", MADE AWARE
--- NOTE | 2022-08-07 05:08 | NUR ---
REPORT GIVEN TO ROXANA Tiwari RN FOR KIMBERLI
[2022-08-07] MEDS ORDERED: ACETAMINOPHEN 325 MG TABLET PO PRN (05:30)
[2022-08-07] MEDS ORDERED: ONDANSETRON HCL/PF 4 MG/2 ML VIAL IVP PRN (05:30)
--- NOTE | 2022-08-07 06:00 | NUR ---
MS RN NOTES RECEIVED PATIENT FROM ER VIA GURMOHIT. PATIENT IS A/O TIMES 2-3 . PAIN NOTED. NO SOB NOTED. NO DISTRESS NOTED. ABLE TO MAKE NEEDS KNOWN. IV ACCESS ON THE LEFT HAND # 20 INTACT AND PATENT RUNNING NS AT 75 ML/HR. SKIN ISSUES NOTED ON LEFT UPPER ARM, LEFT FOREARM, RIGHT SWANN, RIGHT KNEE AND SACRUM. WOUND CONSULT ORDERED. WILL GIVE PAIN MEDICATION. ALL SAFETY MEASURES IN PLACE. BED LOCKED IN THE LOWEST POSITION. CALL LIGHT AND TABLE IN EASY REACH. SIDE RAILS UP. SEIZURE PRECAUTION. VITAL SIGNS IN NORMAL RANGE.WILL CONTINUE TO MONITOR CLOSELY.
[2022-08-07] MEDS: HYDROCODONE/APAP 5/325MG TABLET PO PRN ×3 (06:10→22:17)
[2022-08-07] MEDS: IV NS 0.9% 1,000 ML IV PRN ×2 (06:15→17:32)
[2022-08-07 06:49] VITALS: BP 130/85
--- NOTE | 2022-08-07 07:30 | NUR ---
MS RN OPENING NOTE RECEIVED PT AWAKE AND RESTING IN BED. PATIENT IS ALERT AND ORIENTED X2-3, ABLE TO MAKE NEEDS KNOWN. PT ON ROOM AIR, TOLERATING WELL. NO SOB NOTED AT THIS TIME. NOT IN ANY SIGN OF RESPIRATORY DISTRESS. IV ACCESS ON LEFT HAND G #20 INTACT AND PATENT WITH NS INFUSING AT 75ML/HR. SAFETY MEASURES INITIATED: BED IN LOWEST AND LOCKED POSITION, SIDE RAILS UP X2, AND CALL LIGHT WITHIN REACH. WILL CONTINUE TO MONITOR PT.
--- NOTE | 2022-08-07 07:40 | NUR ---
MS RN CLOSING NOTES PATIENT IS A/O TIMES 2-3 . NO SOB NOTED. NO DISTRESS NOTED. ABLE TO MAKE NEEDS KNOWN. IV ACCESS ON THE LEFT HAND # 20 INTACT AND PATENT RUNNING NS AT 75 ML/HR. SKIN ISSUES NOTED ON LEFT UPPER ARM, LEFT FOREARM, RIGHT SWANN, RIGHT KNEE AND SACRUM. WOUND CONSULT ORDERED. ALL SAFETY MEASURES IN PLACE. BED LOCKED IN THE LOWEST POSITION. CALL LIGHT AND TABLE IN EASY REACH. SIDE RAILS UP. SEIZURE PRECAUTION. VITAL SIGNS IN NORMAL RANGE.WILL ENDORSE FOR KIMBERLI.
[2022-08-07 08:00] VITALS: BP 131/82
[2022-08-07] MEDS: ENOXAPARIN SODIUM 40 MG/0.4 ML DISP.SYRIN SQ SCH (09:48)
--- NOTE | 2022-08-07 10:32 | NUR ---
WOUND CARE CONSULT: PT PRESENTS WITH LEFT UPPER ARM NECROTIC WOUND, LEFT FOREARM DRY SCABS, MULTIPLE AREAS OF DRY ABRASIONS/SCARS AND SACRAL INTACT DEEP TISSUE INJURY, ALL PRESENT ON ADMISSION. RT ARM SLING NOTED. DR LEONARD DUNNE CALLED FOR SURGICAL CONSULT OF LEFT ARM WOUND. DISCUSSED SKIN PROTECTION AND WOUND CARE RECOMMENDATIONS WITH NURSING STAFF. IN AGREEMENT WITH PLAN OF CARE. Addendum: 08/07/22 at 1034 by COLEEN CONTRERAS WNDNU Amended: Links added.
[2022-08-07] MEDS: DAKINS QUARTER STRENGTH (0.125%) 480 ML BOTTLE TOP SCH (11:13)
[2022-08-07 15:35] VITALS: BP 124/54
[2022-08-07] MEDS: ENSURE ENLIVE 237 ML LIQUID (VANILLA) PO SCH (17:21)
--- NOTE | 2022-08-07 17:35 | NUR ---
RN NOTE PT C/O RIGHT SHOULDER PAIN WITH PAIN SCALE LEVEL OF 7/10 AND REQUESTED FOR PAIN MEDICATION. NORCO 5/325MG 1 TAB PO ADMINISTERED ORDERED Q4HRS PRN FOR PAIN. WILL MONITOR AND REASSESS PT.
--- NOTE | 2022-08-07 18:41 | NUR ---
MS RN CLOSING NOTE PT AWAKE AND RESTING IN BED. PATIENT IS ALERT AND ORIENTED X2-3, ABLE TO MAKE NEEDS KNOWN. PT ON ROOM AIR, TOLERATING WELL. NO SOB NOTED AT THIS TIME. NOT IN ANY SIGN OF RESPIRATORY DISTRESS. IV ACCESS ON LEFT HAND G #20 INTACT AND PATENT WITH NS INFUSING AT 75ML/HR. ALL NEEDS ATTENDED. KEPT CLEAN AND COMFORTABLE AT ALL TIMES. SAFETY MEASURES INITIATED: BED IN LOWEST AND LOCKED POSITION, SIDE RAILS UP X2, AND CALL LIGHT WITHIN REACH. WILL ENDORSE TO DRILL OPERATOR NURSE FOR KIMEBRLI.
--- NOTE | 2022-08-07 19:30 | NUR ---
MS RN OPENING NOTES - RECEIVED PATIENT SLEEPING, EASY TO AROUSE. A/O X3 WITH PERIODS OF CONFUSION. BREATHING EVEN AND NON-LABORED ON ROOM AIR. DENIES PAIN AT THIS TIME. HAS LEFT WRIST IV ACCESS #20G AND SALINE LOCKED. NO S/S OF INFILTRATION NOTED. MULTIPLE WOUNDS NOTED. SAFETY PRECAUTIONS IN PLACE: BED LOCKED AND IN LOW POSITION, SIDE RAILS UP X2, CALL LIGHT WITHIN REACH. WILL CONTINUE PLAN OF CARE.
[2022-08-07 20:29] VITALS: BP 115/62
--- NOTE | 2022-08-07 22:24 | NUR ---
C/O EXCRUCIATING RIGHT SHOULDER PAIN /. GAVE NORCO 5-325MG, TOLERATED WELL. WILL CONTINUE PAIN MGT ORDERED.
--- NOTE | 2022-08-07 23:03 | NUR ---
PATIENT C/O WORSENING RIGHT SHOULDER PAIN. NOTIFIED JOEL THAT THERE IS NO PRN MED FOR SEVERE PAIN. ORDERED MORPHINE 2MG IV Q4H PRN. NOTED AND CARRIED OUT.
[2022-08-07] MEDS: MORPHINE SULFATE INJ 2 MG/ML DISP.SYRIN IV PRN (23:39)
[2022-08-08] MEDS: MORPHINE SULFATE INJ 2 MG/ML DISP.SYRIN IV PRN ×2 (06:07→11:50)
[2022-08-08] MEDS: IV NS 0.9% 1,000 ML IV PRN (06:08)
--- NOTE | 2022-08-08 06:10 | NUR ---
PATIENT C/O THROBBING RIGHT SHOULDER PAIN 10/10. ADMINISTERED PRN MORPHINE 2MG AND TOLERATED WELL.
[2022-08-08 06:15] LABS: BASOPHILS % (AUTO) 0.6 % (0.0-2.0); EOSINOPHILS % (AUTO) 1.6 % (0.0-6.0); HEMATOCRIT 34 % (39-51); HEMOGLOBIN 11.9 g/dL (13.5-17.5); LYMPHOCYTES % (AUTO) 24.2 % (20.0-44.0); MEAN CORPUSCULAR HGB CONC 35 g/dl (31.0-36.0); MEAN CORPUSCULAR VOLUME 102 fL (80-96); MONOCYTES # (AUTO) 0.9 K/uL (0.1-1.30); MONOCYTES % (AUTO) 20.5 % (2.0-12.0); NEUTROPHILS # (AUTO) 2.3 K/uL (1.8-8.9); NEUTROPHILS % (AUTO) 53.1 % (43.0-81.0); PLATELET COUNT (AUTO) 285 K/uL (150-450); RED BLOOD CELL COUNT(AUTO) 3.35 MIL/uL (4.5-6.0); WHITE BLOOD COUNT (AUTO) 4.3 K/uL (4.3-11.0)
[2022-08-08 06:25] LABS: ALBUMIN 2.4 g/dL (3.4-5.0); BILIRUBIN,DIRECT 0.7 mg/dL (0.0-0.2); BILIRUBIN,TOTAL 1.1 mg/dL (0.2-1.0); CALCIUM, SERUM 8.2 mg/dL (8.5-10.1); CREATININE 0.7 mg/dL (0.6-1.3); MAGNESIUM 1.8 mg/dL (1.8-2.4); PHOSPHORUS 3.9 mg/dL (2.5-4.9); TOTAL PROTEIN, SERUM 5.7 g/dL (6.4-8.2)
--- NOTE | 2022-08-08 07:09 | NUR ---
MS RN CLOSING NOTES - PATIENT SLEEPING, EASY TO AROUSE. NO ACUTE DISTRESS THROUGHOUT THE NIGHT. TOLERATING ROOM AIR WELL, SATURATING AT 96%. VERBALIZED IMPROVEMENT IN PAIN. AFEBRILE. RE-INSERT IV ACCESS #20G TO LEFT HAND INTACT, PATENT AND FLUSHING. ALL DUE MEDS GIVEN AND NEEDS ATTENDED. SAFETY PRECAUTIONS MAINTAINED. WILL ENDORSE TO NEXT SHIFT FOR KIMBERLI.
--- NOTE | 2022-08-08 07:20 | NUR ---
MS RN OPENING NOTES RECEIVED PATIENT SLEEPING, EASY TO AROUSE. A/O X3. BREATHING EVEN AND UNLABORED ON ROOM AIR. DENIES PAIN AT THIS TIME. HAS LEFT WRIST IV ACCESS #20G AND SL. NO S/S OF INFILTRATION NOTED. MULTIPLE WOUNDS NOTED. SAFETY PRECAUTIONS IN PLACE: BED LOCKED AND IN LOW POSITION, SIDE RAILS UP X2, CALL LIGHT WITHIN REACH. WILL CONTINUE TO MONITOR THE PATIENT
[2022-08-08 08:24] VITALS: BP 120/81
[2022-08-08] MEDS: ENSURE ENLIVE 237 ML LIQUID (VANILLA) PO SCH (09:22)
[2022-08-08] MEDS: ENOXAPARIN SODIUM 40 MG/0.4 ML DISP.SYRIN SQ SCH (09:28)
[2022-08-08] MEDS: DAKINS QUARTER STRENGTH (0.125%) 480 ML BOTTLE TOP SCH (09:30)
[2022-08-08] MEDS: POTASSIUM CHLORIDE 20 MEQ TAB.PRT.SR PO SCH ×3 (11:44→13:30)
[2022-08-08 12:40] LABS: EOSINOPHILS % (MANUAL) 2 % (0-4); LYMPHOCYTES % (MANUAL) 25 % (16-48); MONOCYTES % (MANUAL) 18 % (0-11.0); NEUTROPHILS % (MANUAL) 55 (42-76)
--- NOTE | 2022-08-08 16:15 | NUR ---
MS TELEVISION CABLE INSTALLER NOTES Patient was discharged to home per MD's order. Patient was noted to have anterior shoulder dislocation on the x-rays. It was reduced in the ER and pain was well tolerated. No Active Prescriptions or Reported Meds. Patient is not withdrawing from alcohol. Patient is hydrated well. Potassium repleted, Bilirubin came down to almost normal levels. Discharged by MD on stable condition. All belongings accounted for, discharge summary discussed and signed by the patient. Discharge packet given to the patient including educational reading materials concerning his diagnosis and admission. Charge nurse aware of the discharge. A [employer] was called as requested by the patient. Two [employer]'s accompanied the patient to the lobby until exit. business services director for counseling for alcohol abuse. We will discharge patient home today.
[2022-08-08 16:27] VITALS: BP 134/92
== END 2022-08-08 16:35 | disposition home or self-care (01) | DRG 563 ==
LOC: ER 21:19 → UNDOADMIN 08-07 03:20 → MED 08-07 03:20
PROC: 0RSJXZZ Reposition Right Shoulder Joint, External Approach (ICD-10-PCS; principal; 2022-08-06)
DX: S43.014A Anterior dislocation of right humerus, initial encounter (principal); E87.1 Hypo-osmolality and hyponatremia; F10.139 Alcohol abuse with withdrawal, unspecified; V19.3XXA Pedal cyclist (driver) (passenger) injured in unspecified nontraffic accident, initial encounter; Y93.89 Activity, other specified; Y92.89 Other specified places as the place of occurrence of the external cause; G40.89 Other seizures; E87.6 Hypokalemia; S50.812A Abrasion of left forearm, initial encounter; Z20.822 Contact with and (suspected) exposure to COVID-19; M16.11 Unilateral primary osteoarthritis, right hip; K76.0 Fatty (change of) liver, not elsewhere classified; K82.8 Other specified diseases of gallbladder; Y90.0 Blood alcohol level of less than 20 mg/100 ml
CPT/HCPCS: 36415; 73030-TC; 73060-TC; 73090-TC; 76700-TC; 80048-TC; 80061-TC; 80076-TC; 83735-TC; 84100-TC; 85025-TC; 87081-TC; 97112-TC; 97530-TC; C9803; G0378; G0480; J1650; J2270; J2405; J2704; J7030

== ENCOUNTER 2022-10-15 17:32 | Inpatient (IN) | payer BC ==
[~2022-10-15] VITALS: Ht 170.2 cm; Wt 72.6 kg
[2022-10-15] MEDS ORDERED: IV NS 0.9% 1,000 ML BAG IV ONE ×2 (18:00→18:30)
[2022-10-15 18:14] LABS: BASOPHILS # (AUTO) 0.2 K/uL (0.0-0.2); BASOPHILS % (AUTO) 1.1 % (0.0-2.0); EOSINOPHILS % (AUTO) 0.2 % (0.0-6.0); HEMATOCRIT 35 % (39-51); HEMOGLOBIN 11.8 g/dL (13.5-17.5); LYMPHOCYTES # (AUTO) 0.5 K/uL (0.8-4.8); LYMPHOCYTES % (AUTO) 3.8 % (20.0-44.0); MEAN CORPUSCULAR HGB CONC 34 g/dl (31.0-36.0); MEAN CORPUSCULAR VOLUME 101 fL (80-96); MONOCYTES % (AUTO) 13.9 % (2.0-12.0); NEUTROPHILS # (AUTO) 11.5 K/uL (1.8-8.9); PLATELET COUNT (AUTO) 177 K/uL (150-450); RED BLOOD CELL COUNT(AUTO) 3.48 MIL/uL (4.5-6.0); WHITE BLOOD COUNT (AUTO) 14.2 K/uL (4.3-11.0)
[2022-10-15] MEDS ORDERED: ONDANSETRON HCL/PF 4 MG/2 ML VIAL ONE (18:17)
[2022-10-15 18:26] LABS: CALCIUM, SERUM 9.2 mg/dL (8.5-10.1); CARBON DIOXIDE 29 mmol/L (21-32); CHLORIDE 89 mmol/L (98-107); CREATININE 4.3 mg/dL (0.6-1.3); GLUCOSE 177 mg/dL (74-106); POTASSIUM 3.6 mmol/L (3.5-5.1); SODIUM SERUM 129 mmol/L (136-145); UREA NITROGEN, BLOOD 72 mg/dL (7-18)
[2022-10-15 18:29] LABS: ALCOHOL, BLOOD < 3 mg/dL (0-0); SERUM AMMONIA < 10 umol/L (11-32)
[2022-10-15] MEDS ORDERED: ONDANSETRON HCL/PF 4 MG/2 ML VIAL IVP ONE (18:30)
[2022-10-15 18:31] LABS: ALANINE AMINOTRANSFERASE 47 U/L (12-78); ALBUMIN 2.4 g/dL (3.4-5.0); ALKALINE PHOSPHATASE 146 U/L (46-116); ASPARTATE AMINOTRANSFERASE 92 U/L (15-37); BILIRUBIN,DIRECT 2.3 mg/dL (0.0-0.2); BILIRUBIN,TOTAL 3.1 mg/dL (0.2-1.0); TOTAL PROTEIN, SERUM 6.7 g/dL (6.4-8.2)
[2022-10-15 18:40] LABS: THYROID STIMULATING HORMONE 1.097 uIU/mL (0.358-3.74)
[2022-10-15] MEDS ORDERED: LORAZEPAM INJ 2 MG/ML VIAL IV ONE (19:30)
[2022-10-15] MEDS ORDERED: LORAZEPAM INJ 2 MG/ML VIAL ONE (19:33)
[2022-10-15] MEDS ORDERED: Thiamine 100 MG in IV D5W 50 ML IV SCH (21:30)
[2022-10-15] MEDS ORDERED: ONDANSETRON HCL/PF 4 MG/2 ML VIAL IVP PRN (21:30)
[2022-10-15] MEDS ORDERED: Folic acid 1 MG in IV D5W 50 ML IV SCH (21:30)
[2022-10-15] MEDS ORDERED: PANTOPRAZOLE 40 MG VIAL IV SCH (21:30)
[2022-10-15] MEDS ORDERED: Z GUARD REMEDY 4 OZ OINT TP PRN (21:30)
[2022-10-16] VITALS: BP 134/90
[2022-10-16] MEDS: IV D5/0.45 NACL 1,000 ML IV PRN ×2 (00:53→19:30)
[2022-10-16] MEDS ORDERED: Thiamine 100 MG/ML VIAL ONE (01:49)
[2022-10-16] MEDS ORDERED: Folic acid 1 MG/0.2 ML VIAL ONE (01:49)
[2022-10-16 04:00] VITALS: BP 145/98
[2022-10-16 07:11] LABS: BASOPHILS % (AUTO) 0.2 % (0.0-2.0); EOSINOPHILS % (AUTO) 0.2 % (0.0-6.0); HEMATOCRIT 34 % (39-51); HEMOGLOBIN 11.4 g/dL (13.5-17.5); LYMPHOCYTES # (AUTO) 0.4 K/uL (0.8-4.8); LYMPHOCYTES % (AUTO) 3.1 % (20.0-44.0); MEAN CORPUSCULAR HGB CONC 34 g/dl (31.0-36.0); MEAN CORPUSCULAR VOLUME 102 fL (80-96); MONOCYTES % (AUTO) 14.4 % (2.0-12.0); NEUTROPHILS # (AUTO) 11.5 K/uL (1.8-8.9); NEUTROPHILS % (AUTO) 82.1 % (43.0-81.0); PLATELET COUNT (AUTO) 179 K/uL (150-450); RED BLOOD CELL COUNT(AUTO) 3.31 MIL/uL (4.5-6.0)
[2022-10-16 07:28] LABS: ALBUMIN 2.1 g/dL (3.4-5.0); BILIRUBIN,TOTAL 3.3 mg/dL (0.2-1.0); CALCIUM, SERUM 8.7 mg/dL (8.5-10.1); CREATININE 4.7 mg/dL (0.6-1.3); MAGNESIUM 1.4 mg/dL (1.8-2.4); POTASSIUM 3.1 mmol/L (3.5-5.1)
[2022-10-16 07:42] LABS: PHOSPHORUS 0.6 mg/dL (2.5-4.9)
[2022-10-16] MEDS ORDERED: POTASSIUM PHOSPHATE MM 15 MMOL in IV NS 0.9% 250 ML IV SCH (08:30)
[2022-10-16] MEDS: PANTOPRAZOLE 40 MG TABLET.DR PO SCH (09:23)
[2022-10-16] MEDS: POTASSIUM PHOSPHATE MM 7.5 MMOL in IV NS 0.9% 100 ML IV SCH ×2 (09:45→13:20)
[2022-10-16] MEDS: THIAMINE HCL 100 MG TABLET PO SCH (12:50)
[2022-10-16] MEDS: FOLIC ACID 1 MG TABLET PO SCH (12:51)
[2022-10-16] MEDS: CHLORDIAZEPOXIDE HCL 25 MG CAPSULE PO SCH ×2 (13:05→16:18)
[2022-10-16 20:00] VITALS: BP 130/84
[2022-10-17] VITALS: BP 123/64
[2022-10-17] MEDS: ACETAMINOPHEN 325 MG TABLET PO PRN ×3 (00:34→22:43)
[2022-10-17 04:00] VITALS: BP 151/93
[2022-10-17] MEDS: IV D5/0.45 NACL 1,000 ML IV PRN (06:00)
[2022-10-17 08:00] VITALS: BP 136/88
[2022-10-17] MEDS: CHLORDIAZEPOXIDE HCL 25 MG CAPSULE PO SCH ×3 (08:21→16:38)
[2022-10-17] MEDS: PANTOPRAZOLE 40 MG TABLET.DR PO SCH (08:21)
[2022-10-17] MEDS: THIAMINE HCL 100 MG TABLET PO SCH (08:22)
[2022-10-17] MEDS: FOLIC ACID 1 MG TABLET PO SCH (08:22)
[2022-10-17 11:12] LABS: BASOPHILS # (AUTO) 0.1 K/uL (0.0-0.2); BASOPHILS % (AUTO) 0.7 % (0.0-2.0); EOSINOPHILS % (AUTO) 0.6 % (0.0-6.0); HEMATOCRIT 35 % (39-51); HEMOGLOBIN 11.8 g/dL (13.5-17.5); LYMPHOCYTES # (AUTO) 1.4 K/uL (0.8-4.8); LYMPHOCYTES % (AUTO) 8.8 % (20.0-44.0); MEAN CORPUSCULAR HGB CONC 34 g/dl (31.0-36.0); MEAN CORPUSCULAR VOLUME 100 fL (80-96); MONOCYTES # (AUTO) 1.6 K/uL (0.1-1.30); NEUTROPHILS # (AUTO) 12.5 K/uL (1.8-8.9); NEUTROPHILS % (AUTO) 79.9 % (43.0-81.0); PLATELET COUNT (AUTO) 260 K/uL (150-450); RED BLOOD CELL COUNT(AUTO) 3.47 MIL/uL (4.5-6.0); WHITE BLOOD COUNT (AUTO) 15.7 K/uL (4.3-11.0)
[2022-10-17 11:33] LABS: ALBUMIN 1.9 g/dL (3.4-5.0); BILIRUBIN,TOTAL 5.3 mg/dL (0.2-1.0); CALCIUM, SERUM 8.6 mg/dL (8.5-10.1); CREATININE 5.2 mg/dL (0.6-1.3); POTASSIUM 3.2 mmol/L (3.5-5.1); TOTAL PROTEIN, SERUM 5.8 g/dL (6.4-8.2)
[2022-10-17] MEDS: IV D5/ 0.9% NACL 1,000 ML IV SCH ×2 (11:36→18:00)
[2022-10-17 12:00] VITALS: BP 145/88
[2022-10-17 13:31] LABS: THYROID STIMULATING HORMONE 0.703 uIU/mL (0.358-3.74)
[2022-10-17 15:43] LABS: CREATININE, URINE 40.9 MG/DL (30.0-125.0); URINE TOTAL PROTEIN 139.5 mg/dL (0-11.9)
[2022-10-17 15:44] LABS: BILIRUBIN,URINE 1+ (NEGATIVE); COLOR,URINE YELLOW (YELLOW); LEUKOCYTE ESTERASE ,URINE 2+ (NEGATIVE); NITRITE, URINE NEGATIVE (NEGATIVE); PROTEIN,URINE 2+ mg/dl (NEGATIVE); UGLUCOSE NEGATIVE (NEGATIVE)
[2022-10-17 16:00] VITALS: BP 132/90
[2022-10-17 16:06] LABS: BACTERIA,URINE 2+ /HPF (None Seen); MUCUS,URINE Few /LPF (None Seen); RBC,URINE 51-80 /HPF (0-2); WBC,URINE 21-50 /HPF (0-3)
[2022-10-17] MEDS: ENSURE ENLIVE CHOC 237 ML CAN PO SCH (16:27)
[2022-10-17 20:00] VITALS: BP 109/83
[2022-10-18] VITALS: BP 143/83
[2022-10-18] MEDS: IV D5/ 0.9% NACL 1,000 ML IV SCH ×2 (02:39→11:03)
[2022-10-18 04:00] VITALS: BP 130/85
[2022-10-18 08:00] VITALS: BP 149/94
[2022-10-18] MEDS: ENSURE ENLIVE CHOC 237 ML CAN PO SCH ×2 (08:00→17:00)
[2022-10-18] MEDS: PANTOPRAZOLE 40 MG TABLET.DR PO SCH (08:12)
[2022-10-18] MEDS: CHLORDIAZEPOXIDE HCL 25 MG CAPSULE PO SCH ×3 (08:12→16:28)
[2022-10-18] MEDS: THIAMINE HCL 100 MG TABLET PO SCH (08:12)
[2022-10-18] MEDS: FOLIC ACID 1 MG TABLET PO SCH (08:12)
[2022-10-18 11:07] LABS: *ANA ANTI-CENTROMERE B AB <0.2 AI (0.0-0.9); *ANA ANTI-DNA(DS) AB, QN <1 IU/mL (0-9); *ANA ANTI-JO-1 <0.2 AI (0.0-0.9); *ANA ANTICHROMATIN ANTIBODY <0.2 AI (0.0-0.9); *ANA RNP ANTIBODIES <0.2 AI (0.0-0.9); *ANA SJOGREN'S ANTI-SS-A <0.2 AI (0.0-0.9); *ANA SJOGREN'S ANTI-SS-B <0.2 AI (0.0-0.9); *ANAANTI-SCLERODERMA-70 AB <0.2 AI (0.0-0.9); *ANASMITH AB <0.2 AI (0.0-0.9)
[2022-10-18 12:00] VITALS: BP 120/73
[2022-10-18 12:14] LABS: BASOPHILS % (AUTO) 0.2 % (0.0-2.0); EOSINOPHILS % (AUTO) 0.3 % (0.0-6.0); HEMATOCRIT 32 % (39-51); HEMOGLOBIN 10.6 g/dL (13.5-17.5); LYMPHOCYTES # (AUTO) 0.6 K/uL (0.8-4.8); MEAN CORPUSCULAR HGB CONC 33 g/dl (31.0-36.0); MEAN CORPUSCULAR VOLUME 103 fL (80-96); MONOCYTES # (AUTO) 1.9 K/uL (0.1-1.30); MONOCYTES % (AUTO) 9.4 % (2.0-12.0); NEUTROPHILS # (AUTO) 17.4 K/uL (1.8-8.9); NEUTROPHILS % (AUTO) 87.1 % (43.0-81.0); PLATELET COUNT (AUTO) 321 K/uL (150-450); RED BLOOD CELL COUNT(AUTO) 3.14 MIL/uL (4.5-6.0)
[2022-10-18] MEDS: ACETAMINOPHEN 325 MG TABLET PO PRN ×2 (12:31→21:29)
[2022-10-18 12:46] LABS: ALBUMIN 1.6 g/dL (3.4-5.0); BILIRUBIN,TOTAL 5.2 mg/dL (0.2-1.0); CREATININE 5.3 mg/dL (0.6-1.3); POTASSIUM 3.1 mmol/L (3.5-5.1); TOTAL PROTEIN, SERUM 5.3 g/dL (6.4-8.2)
[2022-10-18 16:00] VITALS: BP 120/76
[2022-10-18] MEDS: Potassium Chloride 20 MEQ in IV NS 0.9% 1,000 ML IV SCH (17:11)
[2022-10-18 20:00] VITALS: BP 152/98
[2022-10-18] MEDS ORDERED: CEFTRIAXONE 1 G VIAL ONE (23:10)
[2022-10-18] MEDS: CEFTRIAXONE 1 G in IV D5W 50 ML IV SCH (23:13)
[2022-10-19] VITALS: BP 127/68
[2022-10-19 04:00] VITALS: BP 121/90
[2022-10-19] MEDS: ACETAMINOPHEN 325 MG TABLET PO PRN ×2 (04:02→10:47)
[2022-10-19] MEDS: Potassium Chloride 20 MEQ in IV NS 0.9% 1,000 ML IV SCH ×3 (04:02→23:10)
[2022-10-19 08:00] VITALS: BP 126/86
[2022-10-19] MEDS: THIAMINE HCL 100 MG TABLET PO SCH (08:56)
[2022-10-19] MEDS: CHLORDIAZEPOXIDE HCL 25 MG CAPSULE PO SCH ×3 (08:56→17:22)
[2022-10-19] MEDS: PANTOPRAZOLE 40 MG TABLET.DR PO SCH (08:56)
[2022-10-19] MEDS: FOLIC ACID 1 MG TABLET PO SCH (08:56)
[2022-10-19] MEDS: ENSURE ENLIVE CHOC 237 ML CAN PO SCH ×2 (08:56→17:29)
[2022-10-19 10:11] LABS: CALCIUM, SERUM 8.2 mg/dL (8.5-10.1); CREATININE 5.1 mg/dL (0.6-1.3); POTASSIUM 3.5 mmol/L (3.5-5.1)
[2022-10-19 11:51] LABS: BASOPHILS % (AUTO) 0.2 % (0.0-2.0); EOSINOPHILS % (AUTO) 0.5 % (0.0-6.0); HEMATOCRIT 31 % (39-51); HEMOGLOBIN 10.7 g/dL (13.5-17.5); LYMPHOCYTES # (AUTO) 1.4 K/uL (0.8-4.8); LYMPHOCYTES % (AUTO) 6.4 % (20.0-44.0); MEAN CORPUSCULAR HGB CONC 34 g/dl (31.0-36.0); MEAN CORPUSCULAR VOLUME 98 fL (80-96); MONOCYTES # (AUTO) 1.7 K/uL (0.1-1.30); NEUTROPHILS # (AUTO) 18.4 K/uL (1.8-8.9); NEUTROPHILS % (AUTO) 84.9 % (43.0-81.0); PLATELET COUNT (AUTO) 395 K/uL (150-450); WHITE BLOOD COUNT (AUTO) 21.7 K/uL (4.3-11.0)
[2022-10-19 12:00] VITALS: BP 119/72
[2022-10-19] MEDS: K PHOS NEUTRAL 250 MG TABLET PO SCH ×3 (12:21→23:14)
[2022-10-19 16:00] VITALS: BP 104/62
[2022-10-19 20:00] VITALS: BP 140/86
[2022-10-19] MEDS: CEFTRIAXONE 1 G in IV D5W 50 ML IV SCH (21:55)
[2022-10-20] VITALS (7 sets, daily range): BP systolic 101–141; BP diastolic 66–94
[2022-10-20] MEDS: K PHOS NEUTRAL 250 MG TABLET PO SCH ×3 (05:00→18:02)
[2022-10-20] MEDS: ENSURE ENLIVE CHOC 237 ML CAN PO SCH ×2 (08:00→17:00)
[2022-10-20] MEDS: CHLORDIAZEPOXIDE HCL 25 MG CAPSULE PO SCH ×3 (10:20→18:02)
[2022-10-20] MEDS: THIAMINE HCL 100 MG TABLET PO SCH (10:20)
[2022-10-20] MEDS: PANTOPRAZOLE 40 MG TABLET.DR PO SCH (10:20)
[2022-10-20] MEDS: FOLIC ACID 1 MG TABLET PO SCH (10:20)
[2022-10-20] MEDS: CEFTRIAXONE 1 G in IV D5W 50 ML IV SCH (22:46)
[2022-10-21] VITALS: BP 148/99
[2022-10-21] MEDS: ACETAMINOPHEN 325 MG TABLET PO PRN (01:57)
[2022-10-21] MEDS: K PHOS NEUTRAL 250 MG TABLET PO SCH ×5 (01:57→23:49)
[2022-10-21 04:00] VITALS: BP 137/68
[2022-10-21 08:00] VITALS: BP 147/80
[2022-10-21] MEDS: PANTOPRAZOLE 40 MG TABLET.DR PO SCH (08:21)
[2022-10-21] MEDS: CHLORDIAZEPOXIDE HCL 25 MG CAPSULE PO SCH ×3 (08:21→17:21)
[2022-10-21] MEDS: FOLIC ACID 1 MG TABLET PO SCH (08:21)
[2022-10-21] MEDS: THIAMINE HCL 100 MG TABLET PO SCH (08:21)
[2022-10-21] MEDS ORDERED: NEPRO VAN 237 ML CAN PO PRN (08:30)
[2022-10-21 12:00] VITALS: BP 136/88
[2022-10-21 14:55] LABS: BASOPHILS # (AUTO) 0.1 K/uL (0.0-0.2); BASOPHILS % (AUTO) 0.3 % (0.0-2.0); EOSINOPHILS % (AUTO) 0.4 % (0.0-6.0); HEMATOCRIT 30 % (39-51); LYMPHOCYTES # (AUTO) 0.7 K/uL (0.8-4.8); LYMPHOCYTES % (AUTO) 3.7 % (20.0-44.0); MEAN CORPUSCULAR HGB CONC 33 g/dl (31.0-36.0); MEAN CORPUSCULAR VOLUME 100 fL (80-96); MONOCYTES # (AUTO) 1.6 K/uL (0.1-1.30); MONOCYTES % (AUTO) 7.9 % (2.0-12.0); NEUTROPHILS # (AUTO) 17.3 K/uL (1.8-8.9); NEUTROPHILS % (AUTO) 87.7 % (43.0-81.0); PLATELET COUNT (AUTO) 342 K/uL (150-450); WHITE BLOOD COUNT (AUTO) 19.8 K/uL (4.3-11.0)
[2022-10-21 15:10] LABS: CALCIUM, SERUM 7.6 mg/dL (8.5-10.1); CREATININE 2.4 mg/dL (0.6-1.3); POTASSIUM 3.4 mmol/L (3.5-5.1)
[2022-10-21 16:00] VITALS: BP 127/84
[2022-10-21 20:00] VITALS: BP_SYST 108; BP_SYST 154; BP_DIAS 58; BP_DIAS 98
[2022-10-21] MEDS: CEFTRIAXONE 1 G in IV D5W 50 ML IV SCH (22:00)
[2022-10-22] VITALS: BP 141/81
[2022-10-22 04:00] VITALS: BP 137/63
[2022-10-22] MEDS: K PHOS NEUTRAL 250 MG TABLET PO SCH ×3 (05:08→17:04)
[2022-10-22 08:00] VITALS: BP 161/94
[2022-10-22] MEDS: CHLORDIAZEPOXIDE HCL 25 MG CAPSULE PO SCH ×3 (08:38→17:04)
[2022-10-22] MEDS: FOLIC ACID 1 MG TABLET PO SCH (08:38)
[2022-10-22] MEDS: THIAMINE HCL 100 MG TABLET PO SCH (08:38)
[2022-10-22] MEDS: PANTOPRAZOLE 40 MG TABLET.DR PO SCH (08:38)
[2022-10-22 12:00] VITALS: BP 138/88
[2022-10-22 16:00] VITALS: BP 124/74
[2022-10-22 20:00] VITALS: BP 142/77
[2022-10-22] MEDS: CEFTRIAXONE 1 G in IV D5W 50 ML IV SCH (21:42)
[2022-10-23] VITALS: BP 130/72
[2022-10-23] MEDS: K PHOS NEUTRAL 250 MG TABLET PO SCH ×5 (00:16→23:48)
[2022-10-23 04:00] VITALS: BP 127/81
[2022-10-23 08:00] VITALS: BP 142/89
[2022-10-23 08:07] LABS: HEPATITIS Be AB Negative (Negative)
[2022-10-23 08:45] LABS: BASOPHILS # (AUTO) 0.2 K/uL (0.0-0.2); BASOPHILS % (AUTO) 0.7 % (0.0-2.0); EOSINOPHILS % (AUTO) 0.4 % (0.0-6.0); HEMATOCRIT 26 % (39-51); HEMOGLOBIN 8.6 g/dL (13.5-17.5); LYMPHOCYTES # (AUTO) 1.2 K/uL (0.8-4.8); LYMPHOCYTES % (AUTO) 4.8 % (20.0-44.0); MEAN CORPUSCULAR HGB CONC 33 g/dl (31.0-36.0); MEAN CORPUSCULAR VOLUME 98 fL (80-96); MONOCYTES # (AUTO) 1.8 K/uL (0.1-1.30); MONOCYTES % (AUTO) 7.1 % (2.0-12.0); NEUTROPHILS # (AUTO) 21.5 K/uL (1.8-8.9); PLATELET COUNT (AUTO) 315 K/uL (150-450); RED BLOOD CELL COUNT(AUTO) 2.63 MIL/uL (4.5-6.0); WHITE BLOOD COUNT (AUTO) 24.8 K/uL (4.3-11.0)
[2022-10-23] MEDS: CHLORDIAZEPOXIDE HCL 25 MG CAPSULE PO SCH ×3 (09:34→17:19)
[2022-10-23] MEDS: FOLIC ACID 1 MG TABLET PO SCH (09:34)
[2022-10-23] MEDS: PANTOPRAZOLE 40 MG TABLET.DR PO SCH (09:34)
[2022-10-23] MEDS: THIAMINE HCL 100 MG TABLET PO SCH (09:34)
[2022-10-23 12:00] VITALS: BP 113/69
[2022-10-23 16:00] VITALS: BP 106/70
[2022-10-23 20:00] VITALS: BP 130/86
[2022-10-23] MEDS: CEFTRIAXONE 1 G in IV D5W 50 ML IV SCH (22:21)
[2022-10-23] MEDS: ACETAMINOPHEN 325 MG TABLET PO PRN (23:49)
[2022-10-24] VITALS: BP 118/71
[2022-10-24 04:00] VITALS: BP 114/66
[2022-10-24] MEDS: K PHOS NEUTRAL 250 MG TABLET PO SCH ×4 (05:18→23:29)
[2022-10-24 08:00] VITALS: BP 128/81
[2022-10-24] MEDS: CHLORDIAZEPOXIDE HCL 25 MG CAPSULE PO SCH ×5 (09:00→17:23)
[2022-10-24] MEDS: FOLIC ACID 1 MG TABLET PO SCH (09:55)
[2022-10-24] MEDS: THIAMINE HCL 100 MG TABLET PO SCH (09:55)
[2022-10-24] MEDS: PANTOPRAZOLE 40 MG TABLET.DR PO SCH (09:55)
[2022-10-24 12:00] VITALS: BP 119/72
[2022-10-24 12:02] LABS: BASOPHILS # (AUTO) 0.1 K/uL (0.0-0.2); BASOPHILS % (AUTO) 0.6 % (0.0-2.0); EOSINOPHILS % (AUTO) 0.4 % (0.0-6.0); HEMATOCRIT 26 % (39-51); HEMOGLOBIN 8.5 g/dL (13.5-17.5); LYMPHOCYTES # (AUTO) 1.2 K/uL (0.8-4.8); MEAN CORPUSCULAR HGB CONC 33 g/dl (31.0-36.0); MEAN CORPUSCULAR VOLUME 99 fL (80-96); MONOCYTES # (AUTO) 1.4 K/uL (0.1-1.30); NEUTROPHILS # (AUTO) 20.6 K/uL (1.8-8.9); PLATELET COUNT (AUTO) 334 K/uL (150-450); RED BLOOD CELL COUNT(AUTO) 2.61 MIL/uL (4.5-6.0); WHITE BLOOD COUNT (AUTO) 23.4 K/uL (4.3-11.0)
[2022-10-24] MEDS: ACETAMINOPHEN 325 MG TABLET PO PRN (12:14)
[2022-10-24 16:00] VITALS: BP 111/70
[2022-10-24 20:00] VITALS: BP 110/71
[2022-10-25] VITALS: BP 131/82
[2022-10-25] MEDS: K PHOS NEUTRAL 250 MG TABLET PO SCH ×3 (05:31→17:15)
[2022-10-25 06:00] VITALS: BP 140/79
[2022-10-25 08:00] VITALS: BP 109/68
[2022-10-25] MEDS: PANTOPRAZOLE 40 MG TABLET.DR PO SCH (08:56)
[2022-10-25] MEDS: THIAMINE HCL 100 MG TABLET PO SCH (08:56)
[2022-10-25] MEDS: CHLORDIAZEPOXIDE HCL 25 MG CAPSULE PO SCH ×3 (08:56→17:15)
[2022-10-25] MEDS: FOLIC ACID 1 MG TABLET PO SCH (08:56)
[2022-10-25 11:22] LABS: BASOPHILS # (AUTO) 0.1 K/uL (0.0-0.2); BASOPHILS % (AUTO) 0.7 % (0.0-2.0); EOSINOPHILS % (AUTO) 0.6 % (0.0-6.0); HEMATOCRIT 25 % (39-51); HEMOGLOBIN 8.4 g/dL (13.5-17.5); LYMPHOCYTES # (AUTO) 1.3 K/uL (0.8-4.8); LYMPHOCYTES % (AUTO) 6.9 % (20.0-44.0); MEAN CORPUSCULAR HGB CONC 34 g/dl (31.0-36.0); MEAN CORPUSCULAR VOLUME 99 fL (80-96); MONOCYTES # (AUTO) 1.2 K/uL (0.1-1.30); MONOCYTES % (AUTO) 6.3 % (2.0-12.0); NEUTROPHILS # (AUTO) 16.1 K/uL (1.8-8.9); NEUTROPHILS % (AUTO) 85.5 % (43.0-81.0); PLATELET COUNT (AUTO) 343 K/uL (150-450); RED BLOOD CELL COUNT(AUTO) 2.53 MIL/uL (4.5-6.0); WHITE BLOOD COUNT (AUTO) 18.9 K/uL (4.3-11.0)
[2022-10-25 12:00] VITALS: BP 101/64
[2022-10-25 15:57] LABS: CALCIUM, SERUM 7.6 mg/dL (8.5-10.1); CREATININE 2.2 mg/dL (0.6-1.3); POTASSIUM 3.3 mmol/L (3.5-5.1)
[2022-10-25 16:00] VITALS: BP 110/64
[2022-10-25 20:00] VITALS: BP 135/89
[2022-10-26] VITALS: BP 137/78
[2022-10-26] MEDS: K PHOS NEUTRAL 250 MG TABLET PO SCH ×5 (00:35→23:12)
[2022-10-26 04:00] VITALS: BP 139/68
[2022-10-26 07:31] LABS: D-DIMER 2.8 mg/L(FEU (0.17-0.50)
[2022-10-26 07:35] LABS: BASOPHILS # (AUTO) 0.1 K/uL (0.0-0.2); BASOPHILS % (AUTO) 0.7 % (0.0-2.0); EOSINOPHILS % (AUTO) 0.7 % (0.0-6.0); HEMATOCRIT 24 % (39-51); LYMPHOCYTES # (AUTO) 1.6 K/uL (0.8-4.8); LYMPHOCYTES % (AUTO) 8.1 % (20.0-44.0); MEAN CORPUSCULAR HGB CONC 34 g/dl (31.0-36.0); MEAN CORPUSCULAR VOLUME 98 fL (80-96); MONOCYTES # (AUTO) 1.4 K/uL (0.1-1.30); NEUTROPHILS # (AUTO) 16.9 K/uL (1.8-8.9); NEUTROPHILS % (AUTO) 83.5 % (43.0-81.0); PLATELET COUNT (AUTO) 382 K/uL (150-450); RED BLOOD CELL COUNT(AUTO) 2.41 MIL/uL (4.5-6.0); WHITE BLOOD COUNT (AUTO) 20.2 K/uL (4.3-11.0)
[2022-10-26 08:00] VITALS: BP 116/66
[2022-10-26 08:06] LABS: CALCIUM, SERUM 7.8 mg/dL (8.5-10.1); CREATININE 2.1 mg/dL (0.6-1.3); POTASSIUM 3.5 mmol/L (3.5-5.1)
[2022-10-26 08:08] LABS: C-REACTIVE PROTEIN 7.2 mg/dL (0.0-0.9)
[2022-10-26] MEDS: PANTOPRAZOLE 40 MG TABLET.DR PO SCH (09:11)
[2022-10-26] MEDS: CHLORDIAZEPOXIDE HCL 25 MG CAPSULE PO SCH ×3 (09:11→17:14)
[2022-10-26] MEDS: FOLIC ACID 1 MG TABLET PO SCH (09:11)
[2022-10-26] MEDS: THIAMINE HCL 100 MG TABLET PO SCH (09:11)
[2022-10-26 12:00] VITALS: BP 114/68
[2022-10-26 16:00] VITALS: BP_SYST 114; BP_SYST 127; BP_DIAS 68; BP_DIAS 83
[2022-10-26 20:00] VITALS: BP 128/62
[2022-10-26] MEDS: ACETAMINOPHEN 325 MG TABLET PO PRN (23:41)
[2022-10-27] VITALS: BP 120/76
[2022-10-27] MEDS: K PHOS NEUTRAL 250 MG TABLET PO SCH ×4 (05:06→23:43)
[2022-10-27 05:40] VITALS: BP 130/72
[2022-10-27 08:00] VITALS: BP 130/89
[2022-10-27 08:06] LABS: IMMUNOGLOBULIN A, SERUM 321 mg/dL (90-386); IMMUNOGLOBULIN G, SERUM 1270 mg/dL (603-1613); IMMUNOGLOBULIN M, SERUM 224 mg/dL (20-172)
[2022-10-27] MEDS: THIAMINE HCL 100 MG TABLET PO SCH (08:35)
[2022-10-27] MEDS: FOLIC ACID 1 MG TABLET PO SCH (08:35)
[2022-10-27] MEDS: CHLORDIAZEPOXIDE HCL 25 MG CAPSULE PO SCH ×3 (08:36→17:04)
[2022-10-27] MEDS: PANTOPRAZOLE 40 MG TABLET.DR PO SCH (08:36)
[2022-10-27 12:00] VITALS: BP 112/89
[2022-10-27 12:58] LABS: BASOPHILS # (AUTO) 0.1 K/uL (0.0-0.2); BASOPHILS % (AUTO) 0.8 % (0.0-2.0); HEMATOCRIT 23 % (39-51); HEMOGLOBIN 7.7 g/dL (13.5-17.5); LYMPHOCYTES # (AUTO) 1.4 K/uL (0.8-4.8); LYMPHOCYTES % (AUTO) 7.6 % (20.0-44.0); MEAN CORPUSCULAR HGB CONC 34 g/dl (31.0-36.0); MEAN CORPUSCULAR VOLUME 100 fL (80-96); MONOCYTES # (AUTO) 1.4 K/uL (0.1-1.30); MONOCYTES % (AUTO) 7.4 % (2.0-12.0); NEUTROPHILS % (AUTO) 83.2 % (43.0-81.0); PLATELET COUNT (AUTO) 363 K/uL (150-450); RED BLOOD CELL COUNT(AUTO) 2.31 MIL/uL (4.5-6.0); WHITE BLOOD COUNT (AUTO) 19.2 K/uL (4.3-11.0)
[2022-10-27 13:47] LABS: CALCIUM, SERUM 8.1 mg/dL (8.5-10.1); POTASSIUM 3.7 mmol/L (3.5-5.1)
[2022-10-27 16:00] VITALS: BP 117/70
[2022-10-27 20:00] VITALS: BP 123/71
[2022-10-28] VITALS: BP 131/88
[2022-10-28 04:00] VITALS: BP 117/73
[2022-10-28] MEDS: ACETAMINOPHEN 325 MG TABLET PO PRN ×2 (04:18→09:27)
[2022-10-28] MEDS: K PHOS NEUTRAL 250 MG TABLET PO SCH ×4 (05:02→23:36)
[2022-10-28 07:13] LABS: CALCIUM, SERUM 8.1 mg/dL (8.5-10.1); POTASSIUM 3.8 mmol/L (3.5-5.1)
[2022-10-28 08:00] VITALS: BP 108/73
[2022-10-28] MEDS: FOLIC ACID 1 MG TABLET PO SCH (09:20)
[2022-10-28] MEDS: PANTOPRAZOLE 40 MG TABLET.DR PO SCH (09:21)
[2022-10-28] MEDS: THIAMINE HCL 100 MG TABLET PO SCH (09:21)
[2022-10-28] MEDS: CHLORDIAZEPOXIDE HCL 25 MG CAPSULE PO SCH ×2 (09:21→17:36)
[2022-10-28 09:34] LABS: BASOPHILS # (AUTO) 0.1 K/uL (0.0-0.2); BASOPHILS % (AUTO) 0.6 % (0.0-2.0); EOSINOPHILS % (AUTO) 1.2 % (0.0-6.0); HEMATOCRIT 22 % (39-51); HEMOGLOBIN 7.3 g/dL (13.5-17.5); LYMPHOCYTES # (AUTO) 1.5 K/uL (0.8-4.8); MEAN CORPUSCULAR HGB CONC 33 g/dl (31.0-36.0); MEAN CORPUSCULAR VOLUME 102 fL (80-96); MONOCYTES # (AUTO) 1.2 K/uL (0.1-1.30); MONOCYTES % (AUTO) 7.1 % (2.0-12.0); NEUTROPHILS # (AUTO) 13.7 K/uL (1.8-8.9); NEUTROPHILS % (AUTO) 82.1 % (43.0-81.0); PLATELET COUNT (AUTO) 385 K/uL (150-450); RED BLOOD CELL COUNT(AUTO) 2.15 MIL/uL (4.5-6.0); WHITE BLOOD COUNT (AUTO) 16.7 K/uL (4.3-11.0)
[2022-10-28 12:00] VITALS: BP 95/56
[2022-10-28 13:06] LABS: *SPE A/G RATIO 0.6 (0.7-1.7); *SPE ALPHA-1-GLOBULIN 0.4 g/dL (0.0-0.4); *SPE ALPHA-2-GLOBULIN 0.8 g/dL (0.4-1.0); *SPE M-SPIKE Not Observed g/dL (Not Observed)
[2022-10-28 16:00] VITALS: BP 91/57
[2022-10-28] MEDS: ASPIRIN 81 MG TAB.CHEW PO SCH (16:19)
[2022-10-28 16:41] LABS: ALBUMIN 1.8 g/dL (3.4-5.0); BILIRUBIN,DIRECT 1.5 mg/dL (0.0-0.2); TOTAL PROTEIN, SERUM 6.1 g/dL (6.4-8.2)
[2022-10-28 20:00] VITALS: BP 111/73
[2022-10-29] VITALS: BP 115/75
[2022-10-29 04:00] VITALS: BP 118/79
[2022-10-29] MEDS: K PHOS NEUTRAL 250 MG TABLET PO SCH ×4 (05:28→23:35)
[2022-10-29 07:20] LABS: BASOPHILS # (AUTO) 0.1 K/uL (0.0-0.2); BASOPHILS % (AUTO) 0.8 % (0.0-2.0); EOSINOPHILS % (AUTO) 0.8 % (0.0-6.0); HEMATOCRIT 23 % (39-51); HEMOGLOBIN 7.5 g/dL (13.5-17.5); LYMPHOCYTES # (AUTO) 1.5 K/uL (0.8-4.8); LYMPHOCYTES % (AUTO) 10.3 % (20.0-44.0); MEAN CORPUSCULAR HGB CONC 33 g/dl (31.0-36.0); MEAN CORPUSCULAR VOLUME 100 fL (80-96); MONOCYTES # (AUTO) 1.2 K/uL (0.1-1.30); MONOCYTES % (AUTO) 8.1 % (2.0-12.0); NEUTROPHILS # (AUTO) 11.8 K/uL (1.8-8.9); PLATELET COUNT (AUTO) 455 K/uL (150-450); RED BLOOD CELL COUNT(AUTO) 2.27 MIL/uL (4.5-6.0); WHITE BLOOD COUNT (AUTO) 14.8 K/uL (4.3-11.0)
[2022-10-29 08:00] VITALS: BP 110/64
[2022-10-29 08:32] LABS: CALCIUM, SERUM 8.8 mg/dL (8.5-10.1); POTASSIUM 3.9 mmol/L (3.5-5.1)
[2022-10-29] MEDS: ASPIRIN 81 MG TAB.CHEW PO SCH (08:35)
[2022-10-29] MEDS: PANTOPRAZOLE 40 MG TABLET.DR PO SCH (08:35)
[2022-10-29] MEDS: FOLIC ACID 1 MG TABLET PO SCH (08:35)
[2022-10-29] MEDS: THIAMINE HCL 100 MG TABLET PO SCH (08:35)
[2022-10-29] MEDS: CHLORDIAZEPOXIDE HCL 25 MG CAPSULE PO SCH ×2 (08:35→17:04)
[2022-10-29 12:00] VITALS: BP 110/64
[2022-10-29] MEDS: VANCOMYCIN HCL 125 MG/2.5 ML ORAL.SUSP PO SCH ×3 (12:16→23:35)
[2022-10-29 16:00] VITALS: BP 151/72
[2022-10-29] MEDS ORDERED: LORAZEPAM 1 MG TABLET PO ONE (18:30)
[2022-10-29] MEDS ORDERED: MORPHINE SULFATE INJ 2 MG/ML DISP.SYRIN IV ONE (18:30)
[2022-10-29] MEDS ORDERED: LIDOCAINE 1% INJ 50 ML MDV IJ ONE (18:30)
[2022-10-29 20:00] VITALS: BP 102/60
[2022-10-30] VITALS (12 sets, daily range): BP systolic 97–115; BP diastolic 61–81
[2022-10-30] MEDS: VANCOMYCIN HCL 125 MG/2.5 ML ORAL.SUSP PO SCH ×3 (05:41→17:12)
[2022-10-30] MEDS: K PHOS NEUTRAL 250 MG TABLET PO SCH ×3 (05:41→17:12)
[2022-10-30 06:57] LABS: BASOPHILS # (AUTO) 0.1 K/uL (0.0-0.2); BASOPHILS % (AUTO) 1.2 % (0.0-2.0); EOSINOPHILS % (AUTO) 1.4 % (0.0-6.0); HEMATOCRIT 21 % (39-51); HEMOGLOBIN 7.3 g/dL (13.5-17.5); LYMPHOCYTES # (AUTO) 1.6 K/uL (0.8-4.8); LYMPHOCYTES % (AUTO) 16.4 % (20.0-44.0); MEAN CORPUSCULAR HGB CONC 35 g/dl (31.0-36.0); MEAN CORPUSCULAR VOLUME 100 fL (80-96); MONOCYTES # (AUTO) 1.3 K/uL (0.1-1.30); MONOCYTES % (AUTO) 13.2 % (2.0-12.0); NEUTROPHILS # (AUTO) 6.5 K/uL (1.8-8.9); NEUTROPHILS % (AUTO) 67.8 % (43.0-81.0); PLATELET COUNT (AUTO) 429 K/uL (150-450); RED BLOOD CELL COUNT(AUTO) 2.13 MIL/uL (4.5-6.0); WHITE BLOOD COUNT (AUTO) 9.6 K/uL (4.3-11.0)
[2022-10-30 07:16] LABS: ALBUMIN 1.8 g/dL (3.4-5.0); BILIRUBIN,TOTAL 1.4 mg/dL (0.2-1.0); CALCIUM, SERUM 8.7 mg/dL (8.5-10.1); CREATININE 1.9 mg/dL (0.6-1.3); POTASSIUM 3.9 mmol/L (3.5-5.1); TOTAL PROTEIN, SERUM 6.6 g/dL (6.4-8.2)
[2022-10-30] MEDS: CHLORDIAZEPOXIDE HCL 25 MG CAPSULE PO SCH ×2 (08:28→17:12)
[2022-10-30] MEDS: THIAMINE HCL 100 MG TABLET PO SCH (08:28)
[2022-10-30] MEDS: ASPIRIN 81 MG TAB.CHEW PO SCH (08:28)
[2022-10-30] MEDS: PANTOPRAZOLE 40 MG TABLET.DR PO SCH (08:28)
[2022-10-30] MEDS: FOLIC ACID 1 MG TABLET PO SCH (08:29)
[2022-10-31] VITALS: BP 109/74
[2022-10-31] MEDS: K PHOS NEUTRAL 250 MG TABLET PO SCH ×4 (00:18→17:58)
[2022-10-31] MEDS: VANCOMYCIN HCL 125 MG/2.5 ML ORAL.SUSP PO SCH ×4 (00:18→17:58)
[2022-10-31 04:00] VITALS: BP 106/69
[2022-10-31] MEDS: ACETAMINOPHEN 325 MG TABLET PO PRN (04:15)
[2022-10-31 07:23] LABS: BASOPHILS # (AUTO) 0.1 K/uL (0.0-0.2); BASOPHILS % (AUTO) 0.9 % (0.0-2.0); EOSINOPHILS % (AUTO) 1.9 % (0.0-6.0); HEMATOCRIT 23 % (39-51); HEMOGLOBIN 7.6 g/dL (13.5-17.5); LYMPHOCYTES # (AUTO) 1.7 K/uL (0.8-4.8); LYMPHOCYTES % (AUTO) 14.3 % (20.0-44.0); MEAN CORPUSCULAR HGB CONC 33 g/dl (31.0-36.0); MEAN CORPUSCULAR VOLUME 104 fL (80-96); MONOCYTES # (AUTO) 1.1 K/uL (0.1-1.30); MONOCYTES % (AUTO) 9.5 % (2.0-12.0); NEUTROPHILS # (AUTO) 8.5 K/uL (1.8-8.9); NEUTROPHILS % (AUTO) 73.4 % (43.0-81.0); PLATELET COUNT (AUTO) 478 K/uL (150-450); RED BLOOD CELL COUNT(AUTO) 2.23 MIL/uL (4.5-6.0); WHITE BLOOD COUNT (AUTO) 11.6 K/uL (4.3-11.0)
[2022-10-31 08:00] VITALS: BP 108/69
[2022-10-31] MEDS: THIAMINE HCL 100 MG TABLET PO SCH (08:49)
[2022-10-31] MEDS: FOLIC ACID 1 MG TABLET PO SCH (08:49)
[2022-10-31] MEDS: ASPIRIN 81 MG TAB.CHEW PO SCH (08:49)
[2022-10-31] MEDS: PANTOPRAZOLE 40 MG TABLET.DR PO SCH (08:50)
[2022-10-31] MEDS: CHLORDIAZEPOXIDE HCL 25 MG CAPSULE PO SCH ×2 (08:51→17:58)
[2022-10-31 12:00] VITALS: BP 98/62
[2022-10-31] MEDS ORDERED: IOHEXOL-350 100 ML VIAL IV ONE (15:25)
[2022-10-31] MEDS ORDERED: IV NS 0.9% 250 ML IV ONE (15:25)
[2022-10-31 15:38] LABS: CALCIUM, SERUM 8.6 mg/dL (8.5-10.1); POTASSIUM 3.9 mmol/L (3.5-5.1)
[2022-10-31 16:00] VITALS: BP 116/81
[2022-10-31 20:00] VITALS: BP 118/73
[2022-11-01] VITALS: BP 114/76
[2022-11-01] MEDS: K PHOS NEUTRAL 250 MG TABLET PO SCH ×5 (00:14→23:17)
[2022-11-01] MEDS: VANCOMYCIN HCL 125 MG/2.5 ML ORAL.SUSP PO SCH ×5 (00:14→23:17)
[2022-11-01 04:00] VITALS: BP 107/66
[2022-11-01 06:20] LABS: BASOPHILS # (AUTO) 0.1 K/uL (0.0-0.2); BASOPHILS % (AUTO) 0.8 % (0.0-2.0); EOSINOPHILS % (AUTO) 2.2 % (0.0-6.0); HEMATOCRIT 22 % (39-51); HEMOGLOBIN 7.6 g/dL (13.5-17.5); LYMPHOCYTES # (AUTO) 1.7 K/uL (0.8-4.8); LYMPHOCYTES % (AUTO) 16.4 % (20.0-44.0); MEAN CORPUSCULAR HGB CONC 34 g/dl (31.0-36.0); MEAN CORPUSCULAR VOLUME 100 fL (80-96); MONOCYTES % (AUTO) 9.5 % (2.0-12.0); NEUTROPHILS # (AUTO) 7.4 K/uL (1.8-8.9); NEUTROPHILS % (AUTO) 71.1 % (43.0-81.0); PLATELET COUNT (AUTO) 515 K/uL (150-450); RED BLOOD CELL COUNT(AUTO) 2.23 MIL/uL (4.5-6.0); WHITE BLOOD COUNT (AUTO) 10.5 K/uL (4.3-11.0)
[2022-11-01 06:43] LABS: CALCIUM, SERUM 8.6 mg/dL (8.5-10.1); CREATININE 1.7 mg/dL (0.6-1.3); MAGNESIUM 1.6 mg/dL (1.8-2.4); PHOSPHORUS 6.4 mg/dL (2.5-4.9); POTASSIUM 3.5 mmol/L (3.5-5.1)
[2022-11-01 08:00] VITALS: BP 117/71
[2022-11-01] MEDS: THIAMINE HCL 100 MG TABLET PO SCH (08:49)
[2022-11-01] MEDS: FOLIC ACID 1 MG TABLET PO SCH (08:49)
[2022-11-01] MEDS: CHLORDIAZEPOXIDE HCL 25 MG CAPSULE PO SCH ×2 (08:49→17:33)
[2022-11-01] MEDS: PANTOPRAZOLE 40 MG TABLET.DR PO SCH (08:49)
[2022-11-01] MEDS: ASPIRIN 81 MG TAB.CHEW PO SCH (08:50)
[2022-11-01] MEDS ORDERED: MAGNESIUM OXIDE 400 MG TABLET PO ONE (09:00)
[2022-11-01] MEDS: ACETAMINOPHEN 325 MG TABLET PO PRN (09:51)
[2022-11-01 12:48] VITALS: BP 98/59
[2022-11-01 16:00] VITALS: BP 93/67
[2022-11-01 20:00] VITALS: BP 110/74
[2022-11-02 04:00] VITALS: BP 126/81
[2022-11-02] MEDS: VANCOMYCIN HCL 125 MG/2.5 ML ORAL.SUSP PO SCH ×4 (05:21→23:20)
[2022-11-02] MEDS: K PHOS NEUTRAL 250 MG TABLET PO SCH (05:21)
[2022-11-02 08:00] VITALS: BP 96/57
[2022-11-02] MEDS: PANTOPRAZOLE 40 MG TABLET.DR PO SCH (09:48)
[2022-11-02] MEDS: ASPIRIN 81 MG TAB.CHEW PO SCH (09:48)
[2022-11-02] MEDS: THIAMINE HCL 100 MG TABLET PO SCH (09:48)
[2022-11-02] MEDS: CHLORDIAZEPOXIDE HCL 25 MG CAPSULE PO SCH (09:48)
[2022-11-02] MEDS: FOLIC ACID 1 MG TABLET PO SCH (09:48)
[2022-11-02 12:00] VITALS: BP 101/67
[2022-11-02] MEDS ORDERED: CHLORDIAZEPOXIDE HCL 25 MG CAPSULE PO PRN (12:00)
[2022-11-02 16:00] VITALS: BP 107/66
[2022-11-02 20:00] VITALS: BP 122/77
[2022-11-03 04:00] VITALS: BP 130/70
[2022-11-03] MEDS: VANCOMYCIN HCL 125 MG/2.5 ML ORAL.SUSP PO SCH ×3 (05:32→17:07)
[2022-11-03 06:47] LABS: BASOPHILS # (AUTO) 0.1 K/uL (0.0-0.2); BASOPHILS % (AUTO) 0.9 % (0.0-2.0); EOSINOPHILS % (AUTO) 4.6 % (0.0-6.0); HEMATOCRIT 28 % (39-51); HEMOGLOBIN 9.2 g/dL (13.5-17.5); LYMPHOCYTES # (AUTO) 1.9 K/uL (0.8-4.8); LYMPHOCYTES % (AUTO) 22.5 % (20.0-44.0); MEAN CORPUSCULAR HGB CONC 33 g/dl (31.0-36.0); MEAN CORPUSCULAR VOLUME 103 fL (80-96); MONOCYTES # (AUTO) 1.3 K/uL (0.1-1.30); MONOCYTES % (AUTO) 15.4 % (2.0-12.0); NEUTROPHILS # (AUTO) 4.9 K/uL (1.8-8.9); NEUTROPHILS % (AUTO) 56.6 % (43.0-81.0); PLATELET COUNT (AUTO) 615 K/uL (150-450); WHITE BLOOD COUNT (AUTO) 8.6 K/uL (4.3-11.0)
[2022-11-03 06:54] LABS: CALCIUM, SERUM 9.3 mg/dL (8.5-10.1); CREATININE 1.9 mg/dL (0.6-1.3); POTASSIUM 3.9 mmol/L (3.5-5.1)
[2022-11-03 08:08] LABS: EOSINOPHILS % (MANUAL) 4 % (0-4); LYMPHOCYTES % (MANUAL) 18 % (16-48); MONOCYTES % (MANUAL) 9 % (0-11.0); NEUTROPHILS % (MANUAL) 69 (42-76)
[2022-11-03] MEDS: PANTOPRAZOLE 40 MG TABLET.DR PO SCH (09:24)
[2022-11-03] MEDS: ASPIRIN 81 MG TAB.CHEW PO SCH (09:24)
[2022-11-03] MEDS: THIAMINE HCL 100 MG TABLET PO SCH (09:24)
[2022-11-03] MEDS: FOLIC ACID 1 MG TABLET PO SCH (09:24)
[2022-11-03] MEDS: SERTRALINE HCL 25 MG TABLET PO SCH (09:24)
[2022-11-03 15:51] LABS: ALBUMIN 2.4 g/dL (3.4-5.0); BILIRUBIN,DIRECT 0.8 mg/dL (0.0-0.2); BILIRUBIN,TOTAL 1.1 mg/dL (0.2-1.0); TOTAL PROTEIN, SERUM 8.3 g/dL (6.4-8.2)
[2022-11-03 16:00] VITALS: BP 120/70
[2022-11-04] VITALS: BP 120/70
[2022-11-04] MEDS: VANCOMYCIN HCL 125 MG/2.5 ML ORAL.SUSP PO SCH ×5 (00:02→23:12)
[2022-11-04] MEDS: ACETAMINOPHEN 325 MG TABLET PO PRN ×2 (01:04→11:08)
[2022-11-04 08:00] VITALS: BP 110/64
[2022-11-04] MEDS: THIAMINE HCL 100 MG TABLET PO SCH (08:41)
[2022-11-04] MEDS: SERTRALINE HCL 25 MG TABLET PO SCH (08:41)
[2022-11-04] MEDS: ASPIRIN 81 MG TAB.CHEW PO SCH (08:41)
[2022-11-04] MEDS: FOLIC ACID 1 MG TABLET PO SCH (08:41)
[2022-11-04] MEDS: PANTOPRAZOLE 40 MG TABLET.DR PO SCH (08:41)
[2022-11-04 09:10] LABS: BASOPHILS # (AUTO) 0.1 K/uL (0.0-0.2); HEMATOCRIT 23 % (39-51); HEMOGLOBIN 7.9 g/dL (13.5-17.5); LYMPHOCYTES # (AUTO) 1.9 K/uL (0.8-4.8); LYMPHOCYTES % (AUTO) 21.5 % (20.0-44.0); MEAN CORPUSCULAR HGB CONC 34 g/dl (31.0-36.0); MEAN CORPUSCULAR VOLUME 105 fL (80-96); MONOCYTES # (AUTO) 1.1 K/uL (0.1-1.30); MONOCYTES % (AUTO) 12.5 % (2.0-12.0); NEUTROPHILS # (AUTO) 5.1 K/uL (1.8-8.9); PLATELET COUNT (AUTO) 542 K/uL (150-450); RED BLOOD CELL COUNT(AUTO) 2.22 MIL/uL (4.5-6.0); WHITE BLOOD COUNT (AUTO) 8.7 K/uL (4.3-11.0)
[2022-11-04 09:11] LABS: CALCIUM, SERUM 8.7 mg/dL (8.5-10.1); CREATININE 1.8 mg/dL (0.6-1.3); POTASSIUM 3.4 mmol/L (3.5-5.1)
[2022-11-04 16:00] VITALS: BP 118/75
[2022-11-05] VITALS: BP 125/88
[2022-11-05] MEDS: VANCOMYCIN HCL 125 MG/2.5 ML ORAL.SUSP PO SCH ×3 (05:17→17:02)
[2022-11-05 07:36] LABS: BASOPHILS # (AUTO) 0.1 K/uL (0.0-0.2); BASOPHILS % (AUTO) 0.9 % (0.0-2.0); EOSINOPHILS % (AUTO) 5.6 % (0.0-6.0); HEMATOCRIT 26 % (39-51); HEMOGLOBIN 8.6 g/dL (13.5-17.5); LYMPHOCYTES # (AUTO) 1.6 K/uL (0.8-4.8); LYMPHOCYTES % (AUTO) 18.2 % (20.0-44.0); MEAN CORPUSCULAR HGB CONC 34 g/dl (31.0-36.0); MEAN CORPUSCULAR VOLUME 102 fL (80-96); MONOCYTES # (AUTO) 1.1 K/uL (0.1-1.30); MONOCYTES % (AUTO) 12.7 % (2.0-12.0); NEUTROPHILS # (AUTO) 5.5 K/uL (1.8-8.9); NEUTROPHILS % (AUTO) 62.6 % (43.0-81.0); PLATELET COUNT (AUTO) 593 K/uL (150-450); RED BLOOD CELL COUNT(AUTO) 2.53 MIL/uL (4.5-6.0); WHITE BLOOD COUNT (AUTO) 8.8 K/uL (4.3-11.0)
[2022-11-05 07:49] LABS: CALCIUM, SERUM 9.8 mg/dL (8.5-10.1); CREATININE 1.7 mg/dL (0.6-1.3); POTASSIUM 3.9 mmol/L (3.5-5.1)
[2022-11-05 08:00] VITALS: BP 114/72
[2022-11-05] MEDS: SERTRALINE HCL 25 MG TABLET PO SCH (08:38)
[2022-11-05] MEDS: THIAMINE HCL 100 MG TABLET PO SCH (08:38)
[2022-11-05] MEDS: PANTOPRAZOLE 40 MG TABLET.DR PO SCH (08:39)
[2022-11-05] MEDS: FOLIC ACID 1 MG TABLET PO SCH (08:39)
[2022-11-05] MEDS: ASPIRIN 81 MG TAB.CHEW PO SCH (08:39)
[2022-11-05 16:00] VITALS: BP 106/66
[2022-11-06] VITALS: BP 106/66
[2022-11-06] MEDS: VANCOMYCIN HCL 125 MG/2.5 ML ORAL.SUSP PO SCH ×5 (00:13→23:32)
[2022-11-06 06:18] LABS: BASOPHILS # (AUTO) 0.1 K/uL (0.0-0.2); BASOPHILS % (AUTO) 1.2 % (0.0-2.0); EOSINOPHILS % (AUTO) 6.6 % (0.0-6.0); HEMATOCRIT 26 % (39-51); HEMOGLOBIN 8.7 g/dL (13.5-17.5); LYMPHOCYTES # (AUTO) 2.1 K/uL (0.8-4.8); LYMPHOCYTES % (AUTO) 22.1 % (20.0-44.0); MEAN CORPUSCULAR HGB CONC 33 g/dl (31.0-36.0); MEAN CORPUSCULAR VOLUME 102 fL (80-96); MONOCYTES # (AUTO) 1.4 K/uL (0.1-1.30); MONOCYTES % (AUTO) 14.4 % (2.0-12.0); NEUTROPHILS # (AUTO) 5.3 K/uL (1.8-8.9); NEUTROPHILS % (AUTO) 55.7 % (43.0-81.0); PLATELET COUNT (AUTO) 641 K/uL (150-450); RED BLOOD CELL COUNT(AUTO) 2.56 MIL/uL (4.5-6.0); WHITE BLOOD COUNT (AUTO) 9.4 K/uL (4.3-11.0)
[2022-11-06 06:50] LABS: CALCIUM, SERUM 9.8 mg/dL (8.5-10.1); CREATININE 1.8 mg/dL (0.6-1.3); POTASSIUM 4.1 mmol/L (3.5-5.1)
[2022-11-06] MEDS: THIAMINE HCL 100 MG TABLET PO SCH (09:07)
[2022-11-06] MEDS: ASPIRIN 81 MG TAB.CHEW PO SCH (09:07)
[2022-11-06] MEDS: PANTOPRAZOLE 40 MG TABLET.DR PO SCH (09:07)
[2022-11-06] MEDS: SERTRALINE HCL 25 MG TABLET PO SCH (09:08)
[2022-11-06] MEDS: FOLIC ACID 1 MG TABLET PO SCH (09:08)
[2022-11-06] MEDS: ACETAMINOPHEN 325 MG TABLET PO PRN (11:45)
[2022-11-06 16:00] VITALS: BP 100/66
[2022-11-07] VITALS: BP 129/60
[2022-11-07] MEDS: VANCOMYCIN HCL 125 MG/2.5 ML ORAL.SUSP PO SCH ×3 (05:19→17:00)
[2022-11-07 07:34] LABS: BASOPHILS # (AUTO) 0.1 K/uL (0.0-0.2); BASOPHILS % (AUTO) 1.1 % (0.0-2.0); EOSINOPHILS % (AUTO) 7.6 % (0.0-6.0); HEMATOCRIT 26 % (39-51); HEMOGLOBIN 8.7 g/dL (13.5-17.5); LYMPHOCYTES # (AUTO) 1.8 K/uL (0.8-4.8); LYMPHOCYTES % (AUTO) 19.6 % (20.0-44.0); MEAN CORPUSCULAR HGB CONC 33 g/dl (31.0-36.0); MEAN CORPUSCULAR VOLUME 102 fL (80-96); MONOCYTES # (AUTO) 1.2 K/uL (0.1-1.30); MONOCYTES % (AUTO) 12.5 % (2.0-12.0); NEUTROPHILS # (AUTO) 5.5 K/uL (1.8-8.9); NEUTROPHILS % (AUTO) 59.2 % (43.0-81.0); PLATELET COUNT (AUTO) 605 K/uL (150-450); RED BLOOD CELL COUNT(AUTO) 2.58 MIL/uL (4.5-6.0); WHITE BLOOD COUNT (AUTO) 9.3 K/uL (4.3-11.0)
[2022-11-07 08:00] VITALS: BP 102/61
[2022-11-07 08:02] LABS: CALCIUM, SERUM 9.8 mg/dL (8.5-10.1); CREATININE 1.8 mg/dL (0.6-1.3)
[2022-11-07] MEDS: THIAMINE HCL 100 MG TABLET PO SCH (08:38)
[2022-11-07] MEDS: PANTOPRAZOLE 40 MG TABLET.DR PO SCH (08:38)
[2022-11-07] MEDS: FOLIC ACID 1 MG TABLET PO SCH (08:38)
[2022-11-07] MEDS: ASPIRIN 81 MG TAB.CHEW PO SCH (08:38)
[2022-11-07] MEDS: SERTRALINE HCL 25 MG TABLET PO SCH (08:38)
[2022-11-07 16:00] VITALS: BP 106/70
[2022-11-08] VITALS: BP 124/70
[2022-11-08] MEDS: VANCOMYCIN HCL 125 MG/2.5 ML ORAL.SUSP PO SCH ×4 (00:15→17:04)
[2022-11-08 07:04] LABS: BASOPHILS # (AUTO) 0.1 K/uL (0.0-0.2); BASOPHILS % (AUTO) 0.9 % (0.0-2.0); EOSINOPHILS % (AUTO) 8.4 % (0.0-6.0); HEMATOCRIT 26 % (39-51); HEMOGLOBIN 8.9 g/dL (13.5-17.5); LYMPHOCYTES # (AUTO) 2.1 K/uL (0.8-4.8); LYMPHOCYTES % (AUTO) 20.1 % (20.0-44.0); MEAN CORPUSCULAR HGB CONC 34 g/dl (31.0-36.0); MEAN CORPUSCULAR VOLUME 101 fL (80-96); MONOCYTES # (AUTO) 1.3 K/uL (0.1-1.30); MONOCYTES % (AUTO) 12.3 % (2.0-12.0); NEUTROPHILS # (AUTO) 6.1 K/uL (1.8-8.9); NEUTROPHILS % (AUTO) 58.3 % (43.0-81.0); PLATELET COUNT (AUTO) 609 K/uL (150-450); RED BLOOD CELL COUNT(AUTO) 2.62 MIL/uL (4.5-6.0); WHITE BLOOD COUNT (AUTO) 10.4 K/uL (4.3-11.0)
[2022-11-08 07:23] LABS: CALCIUM, SERUM 9.6 mg/dL (8.5-10.1); CREATININE 1.9 mg/dL (0.6-1.3); PHOSPHORUS 5.3 mg/dL (2.5-4.9); POTASSIUM 4.1 mmol/L (3.5-5.1)
[2022-11-08 08:00] VITALS: BP 100/63
[2022-11-08] MEDS ORDERED: NEPRO VAN 237 ML CAN PO PRN (08:30)
[2022-11-08] MEDS: ASPIRIN 81 MG TAB.CHEW PO SCH (09:02)
[2022-11-08] MEDS: FOLIC ACID 1 MG TABLET PO SCH (09:02)
[2022-11-08] MEDS: SERTRALINE HCL 25 MG TABLET PO SCH (09:02)
[2022-11-08] MEDS: THIAMINE HCL 100 MG TABLET PO SCH (09:02)
[2022-11-08] MEDS: PANTOPRAZOLE 40 MG TABLET.DR PO SCH (09:03)
[2022-11-08 16:04] VITALS: BP 100/68
[2022-11-08 20:00] VITALS: BP 99/85
[2022-11-09] MEDS: VANCOMYCIN HCL 125 MG/2.5 ML ORAL.SUSP PO SCH ×5 (00:26→23:05)
[2022-11-09 04:00] VITALS: BP 115/74
[2022-11-09 07:11] LABS: BASOPHILS # (AUTO) 0.1 K/uL (0.0-0.2); BASOPHILS % (AUTO) 1.2 % (0.0-2.0); EOSINOPHILS % (AUTO) 9.8 % (0.0-6.0); HEMATOCRIT 28 % (39-51); HEMOGLOBIN 9.3 g/dL (13.5-17.5); LYMPHOCYTES # (AUTO) 1.7 K/uL (0.8-4.8); MEAN CORPUSCULAR HGB CONC 33 g/dl (31.0-36.0); MEAN CORPUSCULAR VOLUME 100 fL (80-96); MONOCYTES # (AUTO) 1.2 K/uL (0.1-1.30); MONOCYTES % (AUTO) 14.1 % (2.0-12.0); NEUTROPHILS # (AUTO) 4.7 K/uL (1.8-8.9); NEUTROPHILS % (AUTO) 54.9 % (43.0-81.0); PLATELET COUNT (AUTO) 571 K/uL (150-450); WHITE BLOOD COUNT (AUTO) 8.6 K/uL (4.3-11.0)
[2022-11-09 07:23] LABS: CREATININE 1.8 mg/dL (0.6-1.3); POTASSIUM 3.9 mmol/L (3.5-5.1)
[2022-11-09 08:00] VITALS: BP 109/70
[2022-11-09] MEDS: PANTOPRAZOLE 40 MG TABLET.DR PO SCH (08:54)
[2022-11-09] MEDS: ASPIRIN 81 MG TAB.CHEW PO SCH (08:54)
[2022-11-09] MEDS: FOLIC ACID 1 MG TABLET PO SCH (08:55)
[2022-11-09] MEDS: SERTRALINE HCL 25 MG TABLET PO SCH (08:55)
[2022-11-09] MEDS: THIAMINE HCL 100 MG TABLET PO SCH (08:55)
[2022-11-09 16:23] VITALS: BP 102/66
[2022-11-09 20:00] VITALS: BP 120/77
[2022-11-10 04:00] VITALS: BP 125/78
[2022-11-10] MEDS: VANCOMYCIN HCL 125 MG/2.5 ML ORAL.SUSP PO SCH ×4 (06:28→23:45)
[2022-11-10 06:44] LABS: BASOPHILS # (AUTO) 0.1 K/uL (0.0-0.2); BASOPHILS % (AUTO) 1.2 % (0.0-2.0); EOSINOPHILS % (AUTO) 7.3 % (0.0-6.0); HEMATOCRIT 27 % (39-51); HEMOGLOBIN 9.2 g/dL (13.5-17.5); LYMPHOCYTES % (AUTO) 20.9 % (20.0-44.0); MEAN CORPUSCULAR HGB CONC 34 g/dl (31.0-36.0); MEAN CORPUSCULAR VOLUME 99 fL (80-96); MONOCYTES # (AUTO) 1.2 K/uL (0.1-1.30); MONOCYTES % (AUTO) 12.7 % (2.0-12.0); NEUTROPHILS # (AUTO) 5.6 K/uL (1.8-8.9); NEUTROPHILS % (AUTO) 57.9 % (43.0-81.0); PLATELET COUNT (AUTO) 580 K/uL (150-450); RED BLOOD CELL COUNT(AUTO) 2.76 MIL/uL (4.5-6.0); WHITE BLOOD COUNT (AUTO) 9.6 K/uL (4.3-11.0)
[2022-11-10 06:57] LABS: CALCIUM, SERUM 10.3 mg/dL (8.5-10.1); CREATININE 1.8 mg/dL (0.6-1.3); POTASSIUM 4.2 mmol/L (3.5-5.1)
[2022-11-10 08:00] VITALS: BP 100/71
[2022-11-10] MEDS: FOLIC ACID 1 MG TABLET PO SCH (08:10)
[2022-11-10] MEDS: PANTOPRAZOLE 40 MG TABLET.DR PO SCH (08:10)
[2022-11-10] MEDS: THIAMINE HCL 100 MG TABLET PO SCH (08:10)
[2022-11-10] MEDS: ASPIRIN 81 MG TAB.CHEW PO SCH (08:10)
[2022-11-10] MEDS: SERTRALINE HCL 25 MG TABLET PO SCH (08:11)
[2022-11-10 16:00] VITALS: BP 110/65
[2022-11-11] VITALS: BP 120/70
[2022-11-11] MEDS: VANCOMYCIN HCL 125 MG/2.5 ML ORAL.SUSP PO SCH ×3 (05:51→17:38)
[2022-11-11 07:11] LABS: BASOPHILS # (AUTO) 0.1 K/uL (0.0-0.2); BASOPHILS % (AUTO) 1.1 % (0.0-2.0); EOSINOPHILS % (AUTO) 4.7 % (0.0-6.0); HEMATOCRIT 29 % (39-51); HEMOGLOBIN 9.6 g/dL (13.5-17.5); LYMPHOCYTES # (AUTO) 1.9 K/uL (0.8-4.8); LYMPHOCYTES % (AUTO) 19.4 % (20.0-44.0); MEAN CORPUSCULAR HGB CONC 33 g/dl (31.0-36.0); MEAN CORPUSCULAR VOLUME 101 fL (80-96); MONOCYTES # (AUTO) 1.1 K/uL (0.1-1.30); MONOCYTES % (AUTO) 11.2 % (2.0-12.0); NEUTROPHILS # (AUTO) 6.2 K/uL (1.8-8.9); NEUTROPHILS % (AUTO) 63.6 % (43.0-81.0); PLATELET COUNT (AUTO) 466 K/uL (150-450); RED BLOOD CELL COUNT(AUTO) 2.86 MIL/uL (4.5-6.0); WHITE BLOOD COUNT (AUTO) 9.7 K/uL (4.3-11.0)
[2022-11-11 07:19] LABS: CALCIUM, SERUM 10.3 mg/dL (8.5-10.1); CREATININE 1.8 mg/dL (0.6-1.3); POTASSIUM 4.2 mmol/L (3.5-5.1)
[2022-11-11 08:00] VITALS: BP 112/62
[2022-11-11] MEDS: THIAMINE HCL 100 MG TABLET PO SCH (08:10)
[2022-11-11] MEDS: FOLIC ACID 1 MG TABLET PO SCH (08:10)
[2022-11-11] MEDS: SERTRALINE HCL 25 MG TABLET PO SCH (08:10)
[2022-11-11] MEDS: PANTOPRAZOLE 40 MG TABLET.DR PO SCH (08:10)
[2022-11-11] MEDS: ASPIRIN 81 MG TAB.CHEW PO SCH (08:10)
[2022-11-11 16:00] VITALS: BP 107/66
[2022-11-12] VITALS: BP 102/69
[2022-11-12] MEDS: VANCOMYCIN HCL 125 MG/2.5 ML ORAL.SUSP PO SCH ×2 (00:41→05:31)
[2022-11-12 05:54] LABS: BASOPHILS # (AUTO) 0.1 K/uL (0.0-0.2); BASOPHILS % (AUTO) 1.3 % (0.0-2.0); EOSINOPHILS % (AUTO) 4.1 % (0.0-6.0); HEMATOCRIT 28 % (39-51); HEMOGLOBIN 9.5 g/dL (13.5-17.5); LYMPHOCYTES # (AUTO) 2.1 K/uL (0.8-4.8); LYMPHOCYTES % (AUTO) 22.9 % (20.0-44.0); MEAN CORPUSCULAR HGB CONC 34 g/dl (31.0-36.0); MEAN CORPUSCULAR VOLUME 99 fL (80-96); MONOCYTES # (AUTO) 1.3 K/uL (0.1-1.30); MONOCYTES % (AUTO) 13.6 % (2.0-12.0); NEUTROPHILS # (AUTO) 5.4 K/uL (1.8-8.9); NEUTROPHILS % (AUTO) 58.1 % (43.0-81.0); PLATELET COUNT (AUTO) 465 K/uL (150-450); RED BLOOD CELL COUNT(AUTO) 2.83 MIL/uL (4.5-6.0); WHITE BLOOD COUNT (AUTO) 9.3 K/uL (4.3-11.0)
[2022-11-12 06:06] LABS: CALCIUM, SERUM 10.2 mg/dL (8.5-10.1); CREATININE 1.8 mg/dL (0.6-1.3)
[2022-11-12 08:00] VITALS: BP_SYST 110; BP_SYST 147; BP_DIAS 66; BP_DIAS 70
[2022-11-12] MEDS: PANTOPRAZOLE 40 MG TABLET.DR PO SCH (08:06)
[2022-11-12] MEDS: SERTRALINE HCL 25 MG TABLET PO SCH (08:06)
[2022-11-12] MEDS: FOLIC ACID 1 MG TABLET PO SCH (08:06)
[2022-11-12] MEDS: THIAMINE HCL 100 MG TABLET PO SCH (08:06)
[2022-11-12] MEDS: ASPIRIN 81 MG TAB.CHEW PO SCH (08:07)
[2022-11-12] MEDS ORDERED: Thiamine HCL PO (14:29)
[2022-11-12] MEDS ORDERED: SERT25TA5 PO (14:29)
[2022-11-12] MEDS ORDERED: PANT40TA49 PO (14:29)
[2022-11-12] MEDS ORDERED: ACET325T53 PO (14:29)
[2022-11-12] MEDS ORDERED: ASPI-1169 PO (14:29)
[2022-11-12] MEDS ORDERED: Folic Acid PO (14:29)
== END 2022-11-12 15:00 | DRG 640 ==
LOC: ER 17:33 → TELE1 20:11 → MEDSG1 10-29 08:29 → ICU 10-30 14:10 → TELE1 10-30 18:30 → MEDSG1 11-01 16:42
PROVIDERS: ADMIT Internal Medicine; ATTEND Internal Medicine
PROC: 5A1D70Z Performance of Urinary Filtration, Intermittent, Less than 6 Hours Per Day (ICD-10-PCS; principal; 2022-10-20)
PROC: 02HV33Z Insertion of Infusion Device into Superior Vena Cava, Percutaneous Approach (ICD-10-PCS; 2022-10-20)
PROC: B548ZZA Ultrasonography of Superior Vena Cava, Guidance (ICD-10-PCS; 2022-10-20)
PROC: 05H933Z Insertion of Infusion Device into Right Brachial Vein, Percutaneous Approach (ICD-10-PCS; 2022-10-20)
PROC: 07DR3ZX Extraction of Iliac Bone Marrow, Percutaneous Approach, Diagnostic (ICD-10-PCS; 2022-10-29)
PROC: B246ZZ4 Ultrasonography of Right and Left Heart, Transesophageal (ICD-10-PCS; 2022-10-30)
DX: E51.2 Wernicke's encephalopathy (principal); E43 Unspecified severe protein-calorie malnutrition; I63.09 Cerebral infarction due to thrombosis of other precerebral artery; G92.9 Unspecified toxic encephalopathy; N17.0 Acute kidney failure with tubular necrosis; E87.1 Hypo-osmolality and hyponatremia; F10.239 Alcohol dependence with withdrawal, unspecified; N39.0 Urinary tract infection, site not specified; A04.72 Enterocolitis due to Clostridium difficile, not specified as recurrent; D61.818 Other pancytopenia; D68.9 Coagulation defect, unspecified; J98.11 Atelectasis; R18.8 Other ascites; Y90.0 Blood alcohol level of less than 20 mg/100 ml; R29.705 NIHSS score 5; B96.89 Other specified bacterial agents as the cause of diseases classified elsewhere; D47.2 Monoclonal gammopathy; D53.9 Nutritional anemia, unspecified; D63.8 Anemia in other chronic diseases classified elsewhere; D72.821 Monocytosis (symptomatic); D75.839 Thrombocytosis, unspecified; E83.42 Hypomagnesemia; E83.51 Hypocalcemia; E83.52 Hypercalcemia; E87.6 Hypokalemia; E83.39 Other disorders of phosphorus metabolism; E88.09 Other disorders of plasma-protein metabolism, not elsewhere classified; F06.31 Mood disorder due to known physiological condition with depressive features; G62.9 Polyneuropathy, unspecified; G93.89 Other specified disorders of brain; I51.7 Cardiomegaly; M16.11 Unilateral primary osteoarthritis, right hip; M89.8X9 Other specified disorders of bone, unspecified site; K70.31 Alcoholic cirrhosis of liver with ascites; Z59.00 Homelessness unspecified; Z79.82 Long term (current) use of aspirin; Z86.718 Personal history of other venous thrombosis and embolism; Z95.828 Presence of other vascular implants and grafts; Z96.642 Presence of left artificial hip joint; S43.014A Anterior dislocation of right humerus, initial encounter; W19.XXXA Unspecified fall, initial encounter; Y92.9 Unspecified place or not applicable; R97.0 Elevated carcinoembryonic antigen [CEA]
CPT/HCPCS: 36410; 36415; 70450-TC; 70496-TC; 70498-TC; 70551-TC; 71045-TC; 73030-TC; 76770-TC; 80048-TC; 80053-TC; 80061-TC; 80076-TC; 81001; 82140-TC; 82232; 82570-TC; 82607-TC; 82668; 82728-TC; 82784; 82962-TC; 83540-TC; 83615-TC; 83735-TC; 84100-TC; 84155; 84165; 84300-TC; 84425; 84443-TC; 84484-TC; 85025-TC; 85045-TC; 85396; 85610-TC; 85730-TC; 86140-TC; 86225; 86235; 86334; 86431-TC; 86704; 86705; 86706; 86707; 86803; 87040-TC; 87081-TC; 87086-TC; 87340; 87806; 90935-TC; 92526; 92611-TC; 93307-TC; 93312-TC; 93970-TC; 97112-TC; 97116-TC; 97530-TC; A4223; A4349; C9113; C9803; G0378; G0480; J0696; J2060; J2270; J2405; J2704; J3411; J3480; J3490; J7030; J7040; J7042; J7050; J7060; Q9967

== ENCOUNTER 2023-03-24 18:52 | Emergency (ER) | payer BC ==
[~2023-03-24] VITALS: Ht 170.2 cm; Wt 69.9 kg
[~2023-03-24 18:52] MED LIST changes: +ASPI-1169 PO; -CALC500T63 PO; -CEPH500C2 PO; -CHLO25CA22 PO; -HYDR-3972 PO; -HYDR28.34 TP; -LEVE1000 PO; -LORA-259 PO; -MULT-24 PO; -MUPI22OI7 MC; -ONDA4TAB5 PO; +PANT40TA49 PO; -THIA500T PO; +Thiamine HCL PO
[2023-03-24 19:05] VITALS: TEMP 98.4
[2023-03-24 20:19] LABS: BASOPHILS % (AUTO) 0.7 % (0.0-2.0); EOSINOPHILS % (AUTO) 0.6 % (0.0-6.0); HEMATOCRIT 40 % (39-51); HEMOGLOBIN 12.9 g/dL (13.5-17.5); LYMPHOCYTES # (AUTO) 1.8 K/uL (0.8-4.8); LYMPHOCYTES % (AUTO) 33.4 % (20.0-44.0); MEAN CORPUSCULAR HEMOGLOBIN 31 PG (26.0-33.0); MEAN CORPUSCULAR HGB CONC 33 g/dl (31.0-36.0); MEAN CORPUSCULAR VOLUME 94 fL (80-96); MONOCYTES # (AUTO) 0.6 K/uL (0.1-1.30); MONOCYTES % (AUTO) 11.9 % (2.0-12.0); NEUTROPHILS # (AUTO) 2.9 K/uL (1.8-8.9); NEUTROPHILS % (AUTO) 53.4 % (43.0-81.0); PLATELET COUNT (AUTO) 342 K/uL (150-450); RED BLOOD CELL COUNT(AUTO) 4.23 MIL/uL (4.5-6.0); WHITE BLOOD COUNT (AUTO) 5.4 K/uL (4.3-11.0)
[2023-03-24 20:38] LABS: CALCIUM, SERUM 9.3 mg/dL (8.5-10.1); CREATININE 1.5 mg/dL (0.6-1.3); POTASSIUM 4.3 mmol/L (3.5-5.1)
[2023-03-24 20:44] LABS: ALBUMIN 3.7 g/dL (3.4-5.0); BILIRUBIN,DIRECT 0.1 mg/dL (0.0-0.2); BILIRUBIN,TOTAL 0.2 mg/dL (0.2-1.0); TOTAL PROTEIN, SERUM 8.2 g/dL (6.4-8.2)
[2023-03-24 20:46] LABS: SALICYLATE 2.5 mg/dL (2.8-20.0)
[2023-03-25 00:11] LABS: APPEARANCE,URINE CLEAR (CLEAR); BILIRUBIN,URINE NEGATIVE (NEGATIVE); BLOOD, URINE TRACE-INTA Ery/uL (NEGATIVE); KETONES,URINE NEGATIVE (NEGATIVE); LEUKOCYTE ESTERASE ,URINE 1+ (NEGATIVE); NITRITE, URINE POSITIVE (NEGATIVE); PH,URINE 5.5 (5.0-8.0); PROTEIN,URINE NEGATIVE (NEGATIVE); UGLUCOSE NEGATIVE (NEGATIVE); UROBILINOGEN,URINE 0.2 EU/dL (0.2)
[2023-03-25 00:12] LABS: COLOR,URINE LIGHT YELLOW (YELLOW)
[2023-03-25 00:14] VITALS: BP 98/66; O2SAT 97
[2023-03-25 00:29] LABS: AMPHETAMINE, URINE NEGATIVE (NEGATIVE); BARBITURATE, URINE NEGATIVE (NEGATIVE); BENZODIAZEPINE, URINE NEGATIVE (NEGATIVE); CANNABINOID, URINE NEGATIVE (NEGATIVE); COCCAINE, URINE NEGATIVE (NEGATIVE); OPIATE, URINE NEGATIVE (NEGATIVE); PHENCYCLIDINE SCREEN,URINE NEGATIVE (NEGATIVE)
[2023-03-25 00:40] LABS: RBC,URINE 0-2 /HPF (0-2)
[2023-03-25 00:41] LABS: ADD URINE CULTURE YES; BACTERIA,URINE Many /HPF (None Seen); SQUAMOUS EPITHELIAL CELL,UR 0-2 /HPF (None Seen)
== END 2023-03-25 00:15 | disposition home or self-care (01) ==
LOC: ER 18:55
DX: F10.129 Alcohol abuse with intoxication, unspecified (principal); Z79.82 Long term (current) use of aspirin; Z60.2 Problems related to living alone; Z79.899 Other long term (current) drug therapy; Y90.8 Blood alcohol level of 240 mg/100 ml or more
CPT/HCPCS: 36415; 80048-TC; 80076-TC; 81001; 85025-TC; 87086-TC; G0480

== ENCOUNTER 2023-05-09 09:55 | Emergency (ER) | payer BC ==
[~2023-05-09] VITALS: Ht 180.3 cm; Wt 73.9 kg
[2023-05-09 10:00] VITALS: TEMP 97.8
[2023-05-09] MEDS ORDERED: ONDANSETRON HCL/PF 4 MG/2 ML VIAL ONE (10:14)
[2023-05-09] MEDS ORDERED: LORAZEPAM INJ 2 MG/ML VIAL ONE (10:14)
[2023-05-09] MEDS ORDERED: ASPIRIN 325 MG TABLET ONE (10:14)
[2023-05-09] MEDS ORDERED: LORAZEPAM INJ 2 MG/ML VIAL IV ONE (10:30)
[2023-05-09] MEDS ORDERED: ONDANSETRON HCL/PF 4 MG/2 ML VIAL IVP ONE (10:30)
[2023-05-09] MEDS ORDERED: IV NS 0.9% 1,000 ML BAG IV ONE ×2 (10:30→11:30)
[2023-05-09] MEDS ORDERED: ASPIRIN 81 MG TAB.CHEW PO ONE (10:30)
[2023-05-09 10:44] LABS: CALCIUM, SERUM 9.5 mg/dL (8.5-10.1); CARBON DIOXIDE 22 mmol/L (21-32); CHLORIDE 90 mmol/L (98-107); CREATININE 1.4 mg/dL (0.6-1.3); GLUCOSE 142 mg/dL (74-106); POTASSIUM 3.6 mmol/L (3.5-5.1); SODIUM SERUM 132 mmol/L (136-145); UREA NITROGEN, BLOOD 11 mg/dL (7-18)
[2023-05-09 10:50] LABS: ALANINE AMINOTRANSFERASE 50 U/L (12-78); ALKALINE PHOSPHATASE 163 U/L (46-116); ASPARTATE AMINOTRANSFERASE 105 U/L (15-37); BILIRUBIN,DIRECT 0.2 mg/dL (0.0-0.2); BILIRUBIN,TOTAL 0.9 mg/dL (0.2-1.0); TOTAL PROTEIN, SERUM 9.7 g/dL (6.4-8.2)
[2023-05-09 11:14] LABS: BASOPHILS % (AUTO) 0.7 % (0.0-2.0); EOSINOPHILS % (AUTO) 0.6 % (0.0-6.0); HEMATOCRIT 35 % (39-51); HEMOGLOBIN 11.8 g/dL (13.5-17.5); LYMPHOCYTES % (AUTO) 17.2 % (20.0-44.0); MEAN CORPUSCULAR HEMOGLOBIN 31 PG (26.0-33.0); MEAN CORPUSCULAR HGB CONC 34 g/dl (31.0-36.0); MEAN CORPUSCULAR VOLUME 90 fL (80-96); MONOCYTES # (AUTO) 0.5 K/uL (0.1-1.30); MONOCYTES % (AUTO) 8.3 % (2.0-12.0); NEUTROPHILS # (AUTO) 4.1 K/uL (1.8-8.9); NEUTROPHILS % (AUTO) 73.2 % (43.0-81.0); PLATELET COUNT (AUTO) 264 K/uL (150-450); RED BLOOD CELL COUNT(AUTO) 3.81 MIL/uL (4.5-6.0); RED CELL DISTRIBUTION WIDTH 15.2 % (11.5-15.0); WHITE BLOOD COUNT (AUTO) 5.6 K/uL (4.3-11.0)
[2023-05-09] MEDS ORDERED: ONDA4TAB5 PO (13:07)
[2023-05-09] MEDS ORDERED: CHLO25CA22 PO (13:07)
[2023-05-09] MEDS ORDERED: ACETAMINOPHEN 325 MG TABLET ONE (13:21)
[2023-05-09] MEDS ORDERED: ACETAMINOPHEN 325 MG TABLET PO ONE (13:30)
[2023-05-09 13:33] VITALS: BP 132/80; O2SAT 98
== END 2023-05-09 13:35 | disposition home or self-care (01) ==
LOC: ER 09:55
DX: R07.9 Chest pain, unspecified (principal); F10.239 Alcohol dependence with withdrawal, unspecified; M16.11 Unilateral primary osteoarthritis, right hip; Y90.1 Blood alcohol level of 20-39 mg/100 ml
CPT/HCPCS: 99285; 96374; 96361 ×2; 96375; 93005 ×2; 71045; 85025; 80048; 83690; 80076; 36415; 84484 ×2; 80320; J2060; J2405; J7030; G0480